=== PATIENT | female | born 1975 | race Caucasian/White ===

== ENCOUNTER 2023-11-11 19:15 | Inpatient (IN) | payer MEDICAID, SELFPAY ==
[2023-11-11] VITALS (7 sets, daily range): BP systolic 130–154; BP diastolic 53–86; PULSE 80–113; RESP 16–20; TEMP 36.9–38; O2SAT 94–98; BMI 23.3
--- NOTE | ~2023-11-11 | US_ITS ---
EXAMINATION: US VENOUS ULTRASOUND WITH DOPPLER LOWER EXTREMITY, RIGHT CLINICAL INFORMATION: Right leg pain and swelling COMPARISON: None available. TECHNIQUE: Ultrasound of the deep veins is performed from the hip to the calf with compression sonography and color and pulse Doppler assessment. Spectral analysis with color-flow imaging is performed. FINDINGS: There is normal venous compression and respiratory phase variation to the right common femoral and proximal femoral vein. Echogenic thrombus, lack of color Doppler, and lack of spectral waveform within the mid to distal right femoral vein, popliteal vein, peroneal vein and posterior tibial vein is consistent with deep venous thrombosis. There is no significant popliteal fossa cyst. Patient was not able to tolerate imaging of the left lower extremity. US/US venous duplex LE RT IMPRESSION: Acute DVT of the right mid femoral, distal femoral, popliteal, peroneal, and posterior tibial veins. This critical test result was discussed with Dr. Huitron at 9:22 PM on 11/11/[address] Jerel Paul at the time of discovery. It was ascertained that the content and the importance of the findings was understood at the time of the direct communication.
--- NOTE | ~2023-11-11 | CT_ITS ---
EXAMINATION: CT ANGIOGRAM OF THE CHEST WITH AND WITHOUT CONTRAST (CT PULMONARY ANGIOGRAM FOR PE) CLINICAL INFORMATION: Reason for Exam DVT, concern for pe COMPARISON: CT chest from 11/11/2023 TECHNIQUE: Prior to contrast administration, noncontrast localization images were obtained. Subsequently, multidetector volumetric imaging was performed from the thoracic inlet to below the diaphragms following the administration of 80 mL Omnipaque 350 intravenous contrast. No contrast reaction reported Sagittal, coronal, and MIP oblique sagittal reformatted images were obtained on the CT workstation, uploaded to PACS, and reviewed. This CT examination was performed using dose optimization techniques as appropriate, variously including the following: *Automated exposure control *Adjustment of mA and/or kV according to patient size (this includes techniques or standardized protocols for targeted exams where dose is matched to indication/reason for exam; i.e. extremities or head) *Use of iterative reconstruction technique Total exam dose-length product 108 mGy-cm FINDINGS: QUALITY OF STUDY/CONTRAST BOLUS: Satisfactory. PULMONARY ARTERIES: No pulmonary emboli. Main pulmonary artery is not enlarged. THORACIC AORTA: No aneurysm. LUNG/PLEURA: Emphysematous changes. Redemonstration of multiple pulmonary nodules for example nodule along the right minor fissure measuring 3 mm (series 8, image 243), stable. Stable nodular focus along the medial aspect of the right upper lobe (series 8, image 142) measuring 5 mm. No new enlarged or suspicious pulmonary nodules or masses are noted. Left basilar consolidative focus potentially representing atelectasis though underlying infectious/inflammatory etiology not excluded. Right basilar atelectasis. Central airways are patent. No pneumothorax. No large pleural effusion. MEDIASTINUM: Heart is not enlarged. No pericardial effusion. No coronary calcifications. No enlarged lymph nodes per size criteria. No evidence of septal bowing or right heart strain. CHEST WALL/AXILLA: No axillary or internal mammary lymphadenopathy. OSSEOUS STRUCTURES: No acute or suspicious osseous abnormality. UPPER ABDOMEN: Spleen is enlarged measuring 14.9 cm. Decreased hepatic attenuation suggesting hepatic steatosis. No reflux of contrast into the hepatic veins to suggest elevated right heart pressures. CT/CT angio chest PE protocol IMPRESSION: 1. No pulmonary emboli. 2. Redemonstration of multiple pulmonary nodules the largest measuring up to 5 mm. No new enlarged or suspicious pulmonary nodules or masses are noted. 3. Left basilar consolidative focus potentially representing atelectasis though underlying infectious/inflammatory etiology not excluded. 4. Spleen is enlarged measuring 14.9 cm. 5. Decreased hepatic attenuation suggesting hepatic steatosis.
--- NOTE | ~2023-11-11 | FL_ITS ---
Fluoroscopic right hip aspiration Indications: Right hip pain. Bacteremia. Procedure: Risks and benefits and possible complications were discussed with the patient and the consent form was signed. The patient was placed hip on the fluoroscopy table. The right hip was prepped and draped in normal sterile fashion. 1% buffered lidocaine was used for anesthesia. A 22-gauge spinal needle was used to access the hip joint. No fluid could be aspirated. Intra-articular position of the needle within the hip joint was verified using 3 cc of Omnipaque 300. The needle was then removed and a Band-Aid was applied to the injection site. There were no immediate complications. FL/FL guided asp or inj major jt Impression: Fluoroscopic right hip aspiration yielding no fluid. The procedure was performed by Solo Santiago PA-C, and directly supervised by Dr. Ruiz.
--- NOTE | ~2023-11-11 | CT_ITS ---
EXAMINATION: CT HEAD WITHOUT CONTRAST CLINICAL INFORMATION: Altered mental status. COMPARISON: None available. TECHNIQUE: Contiguous axial imaging was performed from the skull base to vertex without intravenous administration of contrast. This CT examination was performed using dose optimization techniques as appropriate, variously including the following: *Automated exposure control *Adjustment of mA and/or kV according to patient size (this includes techniques or standardized protocols for targeted exams where dose is matched to indication/reason for exam; i.e. extremities or head) *Use of iterative reconstruction technique DLP: 641 mGy-cm FINDINGS: The lateral, third and fourth ventricles are normally outlined. The cortical sulci and basal cisterns are normally outlined as well. There is no acute territorial defect, hemorrhage or midline shift. The extra-axial spaces are unremarkable. Calvarium/scalp: Intact. Maxillofacial sinuses and mastoids: There is bilateral maxillary sinus mucosal thickening/opacities. The remaining visualized maxillofacial sinuses are clear. There is minimal bilateral mastoid opacification. CT/CT head/brain wo IV con IMPRESSION: 1. No acute intracranial process seen. 2. Bilateral maxillary sinus mucosal thickening/opacities.
--- NOTE | ~2023-11-11 | XR_ITS ---
EXAMINATION: XR HIP, RIGHT CLINICAL INFORMATION: Right hip pain, osteoarthritis COMPARISON: None available. TECHNIQUE: Two views of the right hip. AP pelvis FINDINGS: Joint space narrowing, subchondral sclerosis and cystic changes and osteophyte formation is seen within the right hip joint consistent with severe osteoarthritis. No fracture. Mild degenerative changes noted in the left hip joint. Soft tissues are unremarkable. XR/XR hip RT w [id number] IMPRESSION: Severe osteoarthritis of the right hip joint.
--- NOTE | ~2023-11-11 | CT_ITS ---
EXAMINATION: CT HIP WITHOUT CONTRAST, RIGHT CLINICAL INFORMATION: Severe, debilitating pain. COMPARISON: None available. TECHNIQUE: Multidetector volumetric imaging was obtained through the right hip without contrast material. Multiplanar reformatted images were submitted in coronal and sagittal planes. This CT examination was performed using dose optimization techniques as appropriate, variously including the following: *Automated exposure control *Adjustment of mA and/or kV according to patient size (this includes techniques or standardized protocols for targeted exams where dose is matched to indication/reason for exam; i.e. extremities or head) *Use of iterative reconstruction technique DLP: 217 mGy-cm FINDINGS: Severe posterosuperior joint space narrowing with subchondral sclerosis and prominent subchondral cystic change. Prominent marginal osteophytes. No acute fracture or dislocation. No concerning lytic or blastic osseous lesion. No evidence of avascular necrosis. Small right hip joint effusion. No soft tissue mass or fluid collection. The visualized intrapelvic structures are grossly unremarkable. The visualized muscles and tendons are intact, however, evaluation significantly limited on CT examination. CT/CT hip RT wo IV con IMPRESSION: 1. Severe right hip osteoarthritis with a small joint effusion. 2. No acute fracture or dislocation. No evidence of avascular necrosis.
--- NOTE | ~2023-11-11 | CT_ITS ---
EXAMINATION: CT CHEST WITHOUT CONTRAST CLINICAL INFORMATION: Chest pain after a possible fall. Cough. COMPARISON: None available. TECHNIQUE: Multidetector volumetric CT imaging of the chest was done. Axial MIP volume rendering provided. Sagittal and coronal reformatted images were obtained. This CT examination was performed using dose optimization techniques as appropriate, variously including the following: *Automated exposure control *Adjustment of mA and/or kV according to patient size (this includes techniques or standardized protocols for targeted exams where dose is matched to indication/reason for exam; i.e. extremities or head) *Use of iterative reconstruction technique DLP: 230 mGy-cm. FINDINGS: NURSING STUDENT: Unremarkable. LUNGS: Soft tissue nodule within the medial aspect of the right upper lobe measuring 0.4 x 0.7 cm, for an average of 0.55 cm. Right minor fissure subpleural nodule measuring 0.2 cm. Minimal linear bibasilar atelectasis. Subpleural bleb within the left upper lobe measuring up to 2.5 cm. MEDIASTINUM: No cardiomegaly. No pericardial effusion. No thoracic aortic dilatation. No significant superior mediastinal or hilar lymphadenopathy. CORONARY ARTERY CALCIFICATION: None visualized on this study. PLEURA: There is no pleural effusion. No pleural mass or thickening. AXILLA: No lymphadenopathy. UPPER ABDOMEN: Partially visualized right adrenal nodule measuring 4.3 x 2.0 cm in greatest axial dimension with Hounsfield units measuring 14.4. Given the size greater than 4 cm and Hounsfield units greater than 10, findings could indicate possible malignancy. Surgical consultation is recommended. Consider biochemical lab evaluation for functional status and pheochromocytoma prior to resection. OSSEOUS STRUCTURES: No acute osseous abnormality. Prominent degenerative disc disease at T6-T7. CT/CT chest wo IV con IMPRESSION: 1. Soft tissue nodule within the medial aspect of the right upper lobe measuring 0.4 x 0.7 cm, for an average of 0.55 cm. Right minor fissure subpleural nodule measuring 0.2 cm. Minimal linear bibasilar atelectasis. Subpleural bleb within the left upper lobe measuring up to 2.5 cm. According to the UPDATED 2017 Fleischner Society recommendations, the advised follow-up imaging for nodules <6mm in the upper lobes is not necessarily required in low-risk patients. In high-risk patients with a nodule in the upper lobe and/or demonstrating suspicious morphology, an optional CT follow-up at 12 months may be obtained. If stable at 12 months, no further follow-up is recommended. 2. Partially visualized right adrenal nodule measuring 4.3 x 2.0 cm in greatest axial dimension, with Hounsfield units measuring 14.4. Given the size greater than 4 cm and Hounsfield units greater than 10, findings could indicate possible malignancy. Surgical consultation is recommended. Consider biochemical lab evaluation for functional status and pheochromocytoma prior to resection. 3. Prominent degenerative disc disease at T6-T7. Fleischner guidelines were followed.
--- NOTE | 2023-11-11 19:32 | PC.NURSE ---
pt biba from the train tracks in [place] reporting 10/10 excruciating left hip pain. pt reports sudden onset, pt pedal pulses positive bilaterally. pt able to wiggle toes at this time. pt noted to have sores on the right leg, reports hx of IV drug use. pt vss.
--- NOTE | 2023-11-11 19:39 | ED.GENADULT ---
HPI - General Adult General Chief complaint: Extremity Problem Stated complaint: r leg/hip/wrist pain x2hrs Time Seen by Provider: 11/11/23 19:29 History of Present Illness ED Provider: Elana ALLEN narrative: The patient is a 48-year-old woman who is homeless and who uses IV drugs. The patient says that she normally lives and stays in the [place] area. She was brought to the hospital by ambulance today after she was found apparently lying somewhere near train tracks where she was screaming for help. She says that she has been screaming for help for a few hours before found by police who summoned an ambulance. The patient is complaining of severe pain in her right hip and leg. She says that she has a long history of arthritis in the right hip but she has never had such pain as she has had now. She arrived crying in pain. She did not think that she had had a fever. She denies any definite trauma. When asked how she came to be in [place] from [place] she would only say ?that is a long story. ? The patient denies trauma or assault. Related Data Allergies Allergy/AdvReac Type Severity Reaction Status Date / Time clindamycin Allergy Unknown Verified 11/11/23 19:26 Penicillins Allergy Unknown Verified 11/11/23 19:26 Review of Systems Review of Systems: Yes all other systems are reviewed and are negative [facility] Social History Social History Smoked in Last 30 Days: Yes Substance Use Type: IV Drugs, Marijuana and Opiates Advance Directives: No Advance Directives Information Provided: No Do you have a plan to hurt others: No Plan Patient : No Physical Exam ED Vital Signs: Vital Signs - 24 hr 11/11/23 19:21 11/11/23 19:55 11/11/23 20:30 Temperature 98.4 F Pulse Rate 106 H Respiratory Rate 20 20 20 Blood Pressure 144/53 H Pulse Oximetry 97 Oxygen Delivery Method Room Air 11/11/23 21:13 11/11/23 22:10 11/11/23 22:26 Temperature 98.9 F 98.8 F 98.9 F Pulse Rate 110 H 113 H 110 H Respiratory Rate 20 17 16 Blood Pressure 154/80 H 154/79 H 148/74 H Pulse Oximetry 94 95 95 Oxygen Delivery Method Room Air Room Air Room Air 11/11/23 23:16 11/12/23 00:40 Temperature 100.4 F 101.5 F H Pulse Rate 124 H Respiratory Rate 17 Blood Pressure 168/79 H Pulse Oximetry 95 Oxygen Delivery Method Room Air BMI result Body Mass Index 23.3 Const Other: The patient is an extremely disheveled chronically ill-appearing 48-year-old. Her extremities are very dirty. She was yelling that she was in severe pain in the region of the right hip. HENMT Other: Face is symmetrical. The patient has a very poor dentition with severe decay of all of her teeth. Eyes Other: Pupils are round and equal, conjunctivae nonicteric Neck Other: No nuchal rigidity. No neck swelling Resp Effort & Inspection: normal respiratory effort Auscultation: clear to auscultation bilaterally Cardio Other: I do not hear a murmur Rate: tachycardic Rhythm: regular rhythm Heart sounds: S1 normal heart sound present and S2 normal heart sound present GI Other: Abdomen is soft and not apparently tender. Skin Other: The patient's skin is very dirty on most of her body. She has track hernandez. No definite signs of infection. Neuro Other: The patient was awake and was screaming in pain. She was not obviously disoriented but she seemed distracted by her pain. Eye movements were intact. Pupils were equal. Face is symmetrical. Her speech is hard to understand but I think this was a combination of her dry mucous membranes and her very poor dentition. She moves her arms symmetrically. She moves her left leg well. She has a lot of pain with any movement of the right leg. Extrem Other: Right calf was swollen and much larger than the left calf. The left calf is very soft. Good pulses in both feet Medications Administered Discontinued Medications Generic Name Dose Route Start Last Admin Trade Name Freq PRN Reason Stop Dose Admin Acetaminophen 975 mg 11/12/23 00:59 11/12/23 01:15 Acetaminophen 325 Mg Tablet PO 11/12/23 01:00 975 mg ONCE ONE Administration Droperidol 1.25 mg 11/11/23 19:46 11/11/23 19:55 Droperidol 5 Mg/2 Ml Vial IM 11/11/23 19:47 1.25 mg ONCE ONE Administration Droperidol 1.25 mg 11/11/23 20:15 11/11/23 20:30 Droperidol 5 Mg/2 Ml Vial IM 11/11/23 20:16 1.25 mg ONCE ONE Administration Enoxaparin Sodium 60 mg 11/12/23 00:22 11/12/23 00:53 Enoxaparin Sodium 60 Mg/0.6 Ml Syringe 1 mg/kg (60 mg) 11/12/23 00:23 60 mg SUBCUT Administration ONCE ONE Hydromorphone HCl 2 mg 11/11/23 19:46 11/11/23 19:55 Hydromorphone Hcl 2 Mg/Ml Vial IM 11/11/23 19:47 2 mg ONCE ONE Administration Protocol Hydromorphone HCl 2 mg 11/11/23 20:15 11/11/23 20:30 Hydromorphone Hcl 2 Mg/Ml Vial IM 11/11/23 20:16 2 mg ONCE ONE Administration Protocol Hydromorphone HCl 1 mg 11/11/23 20:56 11/11/23 21:14 Hydromorphone Hcl 1 Mg/Ml Syringe IVPUSH 11/11/23 20:57 1 mg ONCE ONE Administration Protocol Hydromorphone HCl 1 mg 11/11/23 21:23 11/11/23 22:11 Hydromorphone Hcl 1 Mg/Ml Syringe IVPUSH 11/11/23 21:24 1 mg ONCE ONE Administration Protocol Hydromorphone HCl 1 mg 11/12/23 01:46 11/12/23 02:46 Hydromorphone Hcl 1 Mg/Ml Syringe IVPUSH 11/12/23 01:47 1 mg ONCE ONE Administration Protocol Sodium Chloride 1,000 mls @ 999 mls/hr 11/11/23 21:00 11/12/23 00:06 Ns IV 11/11/23 22:00 Infused .Q1H1M SHAHEED Infusion Sodium Chloride 1,000 mls @ 999 mls/hr 11/11/23 23:30 11/12/23 01:04 Ns IV 11/12/23 00:30 Infused .Q1H1M SHAHEED Infusion Cefepime HCl 2 gm/ Sodium 50 mls @ 100 mls/hr 11/12/23 00:23 11/12/23 01:14 Chloride IV 11/12/23 00:52 Infused ONCE ONE Infusion Vancomycin HCl 1,500 mg/ 500 mls @ 333.333 mls/hr 11/12/23 00:24 11/12/23 01:16 Sodium Chloride IV 11/12/23 01:53 333.33 mls/hr ONCE ONE Administration Sodium Chloride 1,000 mls @ 999 mls/hr 11/12/23 01:00 11/12/23 02:21 Ns IV 11/12/23 02:00 Infused .Q1H1M SHAHEED Infusion Lorazepam 1 mg 11/11/23 21:23 11/11/23 21:31 Lorazepam 2 Mg/Ml Vial IVPUSH 11/11/23 21:24 1 mg ONCE ONE Administration Medical Decision Making Medical Decision Making [facility] Narrative: The patient is a 48-year-old male who is homeless and is an IV drug user. She normally lives in [place]. The patient would not tell me what brought her to [place]. The patient states that she developed severe right leg pain just a few hours before coming to the hospital. She says she has chronic right hip pain because of arthritis in the right hip. She says she has never had pain like this before. On exam she had obvious right calf swelling. She has a lot of pain with manipulation of the right hip but it does not seem to be a frozen joint. The patient was initially mildly tachycardic and somewhat hypertensive. Her initial temperature was normal. Ultimately we took a rectal temperature that was 100.4. Her white count was elevated as was her CRP. We obtained blood cultures and a lactate. Her lactate was normal. The patient was started empirically on cefepime and vancomycin. Later the patient became more tachycardic with a heart rate up to the 120s and a repeat temperature was 101.5 degrees. An ultrasound of the right leg showed a DVT from the mid thigh down. She was started on enoxaparin. A noncontrast CT of the right hip shows severe right hip osteoarthritis with a small joint effusion. A noncontrast CT of the chest did not show any obvious source of infection. I consulted the hospitalist for admission. The hospitalist asked me to contact a vascular surgeon as to whether the patient's DVT transfer to a hospital that could do a thrombectomy. I spoke to the on-call vascular surgeon at [facility] who felt that anticoagulation would be the appropriate 1st step in this case. The patient was started on enoxaparin. Ultimately the source of the patient's fever is not entirely clear. She has no abdominal symptoms and no abdominal tenderness. No pneumonia on chest x-ray. She is not complaining of a headache and although she has an unusual demeanor I do not think she was frankly confused ((later after multiple doses of pain medications and lorazepam she seemed more confused but I believe this was attributable to the medications). I think it is probably unlikely that she has a septic arthritis of the hip given the small effusion and the fact that she could move the hip somewhat. The patient is a very complicated patient and I think at this point empiric treatment with antibiotics and awaiting cultures and further observation is appropriate. Lab Data 11/12/23 00:43 11/11/23 21:08 Labs: Lab Results 11/11/23 11/11/23 11/11/23 Range/Units 19:56 21:08 23:45 WBC 16.7 H (4.8-10.8) X10*3/uL RBC 4.86 (4.20-5.50) X10*6/uL Hgb 11.1 L (12.0-16.0) g/dl Hct 34.9 L (37.0-47.0) % MCV 71.8 L (80.0-98.0) fL MCH 22.8 L (27.0-33.0) pg MCHC 31.8 (31.0-35.0) g/dl RDW 15.9 (11.0-16.0) % Plt Count 477 H (160-400) X10*3/uL MPV 10.2 (9.4-12.3) fL Immature Gran % (Auto) 0.7 H (0.0-0.4) % Neut % (Auto) 90.9 H (45-73) % Lymph % (Auto) 3.2 L (20-40) % [place] % (Auto) 4.7 (2-11) % Eos % (Auto) 0.1 (0-4) % Baso % (Auto) 0.4 (0-2) % Lymph # (Auto) 0.5 L (1.2-4.9) X10*3/uL [place] # (Auto) 0.8 (0.1-1.2) X10*3/uL Eos # (Auto) 0.0 (0.0-0.4) X10*3/uL Baso # (Auto) 0.1 (0.0-0.2) X10*3/uL Abs Immat Gran (auto) 0.12 H (0.00-0.03) X10*3/uL Absolute Neuts (auto) 15.2 H (2.0-8.3) x10*3/uL Absolute Nucleated RBC 0.000 (0.0-0.012) X10*3/uL Nucleated RBC % (auto) 0.0 (0.0-0.2) /100WBC Smear Tech's Comments VERIFIED PT 13.9 H (11.1-13.3) SEC INR 1.1 (0.9-1.1) APTT (26.0-36.8) SEC Sodium 136 (135-145) mmol/L Potassium 4.6 (3.3-5.1) mmol/L Chloride 97 (96-108) mmol/L Carbon Dioxide 23 (22-29) mmol/L Anion Gap 21 H (12-20) BUN 19 H (9-16) mg/dL Creatinine 0.82 (0.5-1.4) mg/dL Estim Creat Clear Calc 74.6 Estimated GFR > 60 Random Glucose 101 (60-115) mg/dL Lactic Acid 1.1 (0.5-2.0) mmol/L Calcium 9.3 (8.4-10.2) mg/dL Magnesium 2.2 (1.6-2.6) mg/dL Total Bilirubin 0.9 (0.0-1.0) mg/dL Direct Bilirubin 0.2 (0.0-0.5) mg/dL AST 40 H (5-31) U/L ALT 24 (0-31) U/L Alkaline Phosphatase 100 (39-117) U/L Total Creatine Kinase 156 H (26-140) U/L C-Reactive Protein 23.18 H (< or = 0.50) mg/dL Total Protein 10.2 H (6.5-8.0) g/dL Albumin 3.2 L (3.5-5.0) g/dL Procalcitonin Cancelled 15.79 Urine Color Dark Yellow Urine Appearance Cloudy Urine pH 5.5 (5.0-9.0) Ur Specific [place] >= 1.030 H (1.005-1.025) Urine Protein 100 (2+) H (Neg-Trace) mg/dL Urine Glucose (UA) Negative (Negative) mg/dL Urine Ketones Trace (Negative) mg/dL Urine Blood Negative (Negative) Urine Nitrite Negative (Negative) Ur Leukocyte Esterase Small (1+) H (Negative) Urine RBC 0-2 (0-2) /HPF Urine WBC 6-10 H (0-5) /HPF Ur Squamous Epith Cells >20 (0-2) /HPF Other Crystals Present Urine Bacteria 2+ (None Seen) Hyaline Casts >20 (0-2) /LPF Urine Opiates Screen POSITIVE H (Not Detect) Ur Buprenorphine Scrn Not Detected (Not Detect) ng/mL Ur Oxycodone Screen Not Detected (Not Detect) ng/mL Urine Methadone Screen Not Detected (Not Detect) ng/mL Urine Fentanyl Screen POSITIVE H (Not Detect) Ur Barbiturates Screen Not Detected (Not Detect) Ur Phencyclidine Scrn Not Detected (Not Detect) Ur Amphetamines Screen Not Detected (Not Detect) U Benzodiazepines Scrn Not Detected (Not Detect) Urine Cocaine Screen POSITIVE H (Not Detect) U Marijuana (THC) Screen Not Detected (Not Detect) Ethyl Alcohol < 10 mg/dL 11/12/23 Range/Units 00:43 WBC 21.0 H (4.8-10.8) X10*3/uL RBC 3.96 L (4.20-5.50) X10*6/uL Hgb 9.0 L (12.0-16.0) g/dl Hct 28.2 L (37.0-47.0) % MCV 71.2 L (80.0-98.0) fL MCH 22.7 L (27.0-33.0) pg MCHC 31.9 (31.0-35.0) g/dl RDW 15.8 (11.0-16.0) % Plt Count 434 H (160-400) X10*3/uL MPV 10.1 (9.4-12.3) fL Immature Gran % (Auto) (0.0-0.4) % Neut % (Auto) (45-73) % Lymph % (Auto) (20-40) % [place] % (Auto) (2-11) % Eos % (Auto) (0-4) % Baso % (Auto) (0-2) % Lymph # (Auto) (1.2-4.9) X10*3/uL [place] # (Auto) (0.1-1.2) X10*3/uL Eos # (Auto) (0.0-0.4) X10*3/uL Baso # (Auto) (0.0-0.2) X10*3/uL Abs Immat Gran (auto) (0.00-0.03) X10*3/uL Absolute Neuts (auto) (2.0-8.3) x10*3/uL Absolute Nucleated RBC 0.000 (0.0-0.012) X10*3/uL Nucleated RBC % (auto) 0.0 (0.0-0.2) /100WBC Smear Tech's Comments PT 14.9 H (11.1-13.3) SEC INR 1.2 H (0.9-1.1) APTT 25.9 L (26.0-36.8) SEC Sodium (135-145) mmol/L Potassium (3.3-5.1) mmol/L Chloride (96-108) mmol/L Carbon Dioxide (22-29) mmol/L Anion Gap (12-20) BUN (9-16) mg/dL Creatinine (0.5-1.4) mg/dL Estim Creat Clear Calc Estimated GFR Random Glucose (60-115) mg/dL Lactic Acid (0.5-2.0) mmol/L Calcium (8.4-10.2) mg/dL Magnesium (1.6-2.6) mg/dL Total Bilirubin (0.0-1.0) mg/dL Direct Bilirubin (0.0-0.5) mg/dL AST (5-31) U/L ALT (0-31) U/L Alkaline Phosphatase (39-117) U/L Total Creatine Kinase (26-140) U/L C-Reactive Protein (< or = 0.50) mg/dL Total Protein (6.5-8.0) g/dL Albumin (3.5-5.0) g/dL Procalcitonin Urine Color Urine Appearance Urine pH (5.0-9.0) Ur Specific [place] (1.005-1.025) Urine Protein (Neg-Trace) mg/dL Urine Glucose (UA) (Negative) mg/dL Urine Ketones (Negative) mg/dL Urine Blood (Negative) Urine Nitrite (Negative) Ur Leukocyte Esterase (Negative) Urine RBC (0-2) /HPF Urine WBC (0-5) /HPF Ur Squamous Epith Cells (0-2) /HPF Other Crystals Urine Bacteria (None Seen) Hyaline Casts (0-2) /LPF Urine Opiates Screen (Not Detect) Ur Buprenorphine Scrn (Not Detect) ng/mL Ur Oxycodone Screen (Not Detect) ng/mL Urine Methadone Screen (Not Detect) ng/mL Urine Fentanyl Screen (Not Detect) Ur Barbiturates Screen (Not Detect) Ur Phencyclidine Scrn (Not Detect) Ur Amphetamines Screen (Not Detect) U Benzodiazepines Scrn (Not Detect) Urine Cocaine Screen (Not Detect) U Marijuana (THC) Screen (Not Detect) Ethyl Alcohol mg/dL Critical Care Time Critical Care Time Critical Care Time: Yes Total Critical Care Time: 35 Attestation: The patient was critically ill with a high probability of imminent or life-threatening deterioration. ?I spent greater than 30 minutes of discontinuous time evaluating the patient, delivering critical care at the bedside, discussing evaluating data with consultants. ?Critical care time does not include time spent performing separately billable procedures or teaching. ?Time spent performing critical care with 35 minutes. Discharge Plan Discharge Clinical Impression: Acute deep vein thrombosis (DVT) of right lower extremity, Fever, IVDU (intravenous drug user) Patient Disposition: Admitted As Inpatient
[2023-11-11] MEDS: droPERidol 5 MG/2 ML VIAL 1.25 MG IM ×2 (19:55→20:30)
[2023-11-11] MEDS: HYDROmorphone HCl 2 MG/ML VIAL IM ×2 (19:55→20:30)
--- NOTE | 2023-11-11 19:57 | PC.NURSE ---
pt medicated per mar, tolerated well.
[2023-11-11 20:02] LABS: Appearance Urine Cloudy; Color Urine Dark Yellow; Glucose Urine UA Negative (Negative); Leukocyte Esterase Urine Small (1+) (Negative); Nitrite Urine Negative (Negative); PH 5.5 (5.0-9.0); Specific Gravity - Urine >= 1.030 (1.005-1.025); UMIC TRIGGER UACC YES; Urine Blood Negative (Negative); Urine Ketones Trace mg/dL (Negative); Urine Protein 100 (2+) mg/dL (Neg-Trace)
--- NOTE | 2023-11-11 20:12 | MHC.EDTECH ---
Pt refusing to have labs drawn. Zenaida WOLFE aware.
[2023-11-11 20:16] LABS: Amphetamine Screen Urine Not Detected (Not Detect); Barbiturates, Urine Not Detected (Not Detect); Benzodiazepines Screen Urine Not Detected (Not Detect); Buprenorphine Scr Not Detected (Not Detect); Cannabinoid Screen Urine Not Detected (Not Detect); Cocaine Screen Urine POSITIVE (Not Detect); Fentanyl, urine POSITIVE (Not Detect); Methadone Screen, Urine Not Detected (Not Detect); Opiate Screen Urine POSITIVE (Not Detect); Oxycodone Screen Urine Not Detected (Not Detect); Phencyclidine Screen Urine Not Detected (Not Detect)
[2023-11-11 20:22] LABS: Bacteria Urine 2+ (None Seen); Hyaline Casts Urine >20 /LPF (0-2); Other Crystals Urine Present; RBC Urine 0-2 /HPF (0-2); Squamous Epithelial Cell Urine >20 /HPF (0-2); UACC Culture Trigger YES
--- NOTE | 2023-11-11 20:33 | PC.NURSE ---
pt reporting 10/10 pain, pt medicated per mar at this time.
[2023-11-11] MEDS: 0.9 % Sodium Chloride 1,000 ML 999 ML IV (21:13)
[2023-11-11] MEDS: HYDROmorphone HCl 1 MG/ML SYRINGE IVPUSH ×2 (21:14→22:11)
[2023-11-11 21:16] LABS: Basophils Absolute Auto 0.1 X10*3/uL (0.0-0.2); Basophils Percent Auto 0.4 % (0-2); Eosinophils Percent Auto 0.1 % (0-4); Hematocrit 34.9 % (37.0-47.0); Hemoglobin 11.1 g/dl (12.0-16.0); Imm Gran Abs Auto 0.12 X10*3/uL (0.00-0.03); Imm Gran Pct Auto 0.7 % (0.0-0.4); Lymphocytes Absolute Auto 0.5 X10*3/uL (1.2-4.9); Lymphocytes Percent Auto 3.2 % (20-40); MANUAL DIFF FLAG SCAN; Mean Corpuscular HGB Conc 31.8 g/dl (31.0-35.0); Mean Corpuscular Hemoglobin 22.8 pg (27.0-33.0); Mean Corpuscular Volume 71.8 fL (80.0-98.0); Mean Platelet Volume 10.2 fL (9.4-12.3); Monocytes Absolute Auto 0.8 X10*3/uL (0.1-1.2); Monocytes Percent Auto 4.7 % (2-11); Neutrophils Absolute Auto 15.2 x10*3/uL (2.0-8.3); Neutrophils Percent Auto 90.9 % (45-73); Platelet Count 477 X10*3/uL (160-400); Red Blood Count 4.86 X10*6/uL (4.20-5.50); Red Cell Distribution Width 15.9 % (11.0-16.0); SCAN SMEAR FLAG 1; White Blood Count 16.7 X10*3/uL (4.8-10.8)
--- NOTE | 2023-11-11 21:16 | PC.NURSE ---
iv access obtained at this time, 20G placed in right ac, labs obtained and sent.
[2023-11-11 21:23] LABS: INTERNATIONAL NORM RATIO 1.1 (0.9-1.1); Prothrombin Time 13.9 SEC (11.1-13.3)
[2023-11-11] MEDS: LORazepam 2 MG/ML VIAL 1 MG IVPUSH (21:31)
[2023-11-11 21:36] LABS: SLIDE REVIEW VERIFIED
[2023-11-11 21:56] LABS: Chloride 97 mmol/L (96-108)
[2023-11-11 21:57] LABS: Alanine Aminotransferase 24 U/L (0-31); Albumin Level 3.2 g/dL (3.5-5.0); Alkaline Phosphatase 100 U/L (39-117); Anion Gap 21 (12-20); Aspartate Amino Transferase 40 U/L (5-31); Bilirubin Direct 0.2 mg/dL (0.0-0.5); Bilirubin Total 0.9 mg/dL (0.0-1.0); Blood Urea Nitrogen 19 mg/dL (9-16); C Reactive Protein 23.18 mg/dL (< or = 0.50); Calcium 9.3 mg/dL (8.4-10.2); Carbon Dioxide 23 mmol/L (22-29); Creatinine Clr Calc Pharmacy 74.6; Estimated Glomerular Filt Rate > 60; Ethanol < 10 mg/dL; Glucose Random 101 mg/dL (60-115); Magnesium 2.2 mg/dL (1.6-2.6); Potassium 4.6 mmol/L (3.3-5.1); Sodium 136 mmol/L (135-145); Total Protein 10.2 g/dL (6.5-8.0)
--- NOTE | 2023-11-11 22:15 | PC.NURSE ---
pt refusing x rays at this time. pt medicated per jun, aware.
[2023-11-12] VITALS (15 sets, daily range): BP systolic 152–189; BP diastolic 63–90; PULSE 89–124; RESP 17–24; TEMP 36.4–38.6; O2SAT 93–95; BMI 26.3
--- NOTE | 2023-11-12 00:01 | PC.NURSE ---
at bedside placing IJ at this time, pt tolerated well.labs obtained and sent.
[2023-11-12] MEDS: 0.9 % Sodium Chloride 1,000 ML 999 ML IV ×2 (00:03→01:20)
[2023-11-12 00:06] LABS: Lactic Acid 1.1 mmol/L (0.5-2.0)
--- NOTE | 2023-11-12 00:12 | MHC.EDTECH ---
Nilson placed on Pt.
--- NOTE | 2023-11-12 00:25 | ECG_ITS ---
Test Reason : WEAKNESS Blood Pressure : / mmHG Vent. Rate : 124 BPM Atrial Rate : 124 BPM P-R Int : 146 ms QRS Dur : 066 ms QT Int : 308 ms P-R-T Axes : 052 069 035 degrees QTc Int : 442 ms Sinus tachycardia Possible Left atrial enlargement Anterior infarct , age undetermined Abnormal ECG No previous ECGs available Referred By: Constantin Huitron Electronically Signed By:SHUKRI CHAPPELL MD
[2023-11-12 00:31] LABS: Procalcitonin 15.79 ng/mL
[2023-11-12] MEDS: cefEPime HCl 2 GM in 0.9 % Sodium Chloride 50 ML IV (00:44)
[2023-11-12 00:47] LABS: Hematocrit 28.2 % (37.0-47.0); Mean Corpuscular HGB Conc 31.9 g/dl (31.0-35.0); Mean Corpuscular Hemoglobin 22.7 pg (27.0-33.0); Mean Corpuscular Volume 71.2 fL (80.0-98.0); Mean Platelet Volume 10.1 fL (9.4-12.3); Platelet Count 434 X10*3/uL (160-400); Red Blood Count 3.96 X10*6/uL (4.20-5.50); Red Cell Distribution Width 15.8 % (11.0-16.0)
[2023-11-12] MEDS: Enoxaparin Sodium 60 MG/0.6 ML SYRINGE SUBCUT (00:53)
[2023-11-12 00:55] LABS: INTERNATIONAL NORM RATIO 1.2 (0.9-1.1); Prothrombin Time 14.9 SEC (11.1-13.3)
--- NOTE | 2023-11-12 00:56 | PC.NURSE ---
COWS=9, dr.krogius gar.
[2023-11-12 00:58] LABS: Partial Thromboplastin Time 25.9 SEC (26.0-36.8)
--- NOTE | 2023-11-12 00:58 | P.HPHOSP_ITS ---
History of Present Illness Date of Service: 11/12/23 Chief Complaint: leg pain This is a 48-year-old female with pertinent history of tobacco use disorder, IV polysubstance use disorder who was brought to the emergency department after [place] near the train track and screaming for help, complaining of leg pain. As per EMS, she was found by the police who called EMS. Patient states she is homeless in admits to using IV drugs. She used on the day of presentation. Patient states he was screaming due to her leg pain that has been ongoing for a while. Patient states she has never had such pain before. Denies fever or chills. No chest discomfort, palpitations, cough, shortness of breath, abdominal pain, changes in urinary or bowel habits. Patient denies taking any prescription medications. In the emergency department, imaging with acute DVT of the right lower extremity. [facility] vascular surgery was consulted who recommended admission with anticoagulation, no surgical intervention warranted at this time. Patient also with fever 101.5 and WBC 21 with elevated procalcitonin in the ER. She was given therapeutic Lovenox and empiric IV antibiotics. Review of Systems 2 Constitutional: Constitutional: Reports malaise, Reports poor appetite and Reports weakness Cardiovascular: Cardiovascular: Reports no additional cardiovascular complaints Respiratory: Respiratory: Reports no additional respiratory complaints Gastrointestinal: Gastrointestinal: Reports no additional gastrointestinal complaints Genitourinary: Genitourinary: Reports no additional female genitourinary complaints Neurologic: Reports weakness PMFSH Social History Smoked in Last 30 Days: Yes Substance Use Type: IV Drugs, Marijuana and Opiates Advance Directives: No Advance Directives Information Provided: No Do you have a plan to hurt others: No Plan Patient : No Meds Allergies Allergy/AdvReac Type Severity Reaction Status Date / Time clindamycin Allergy Unknown Verified 11/11/23 19:26 Penicillins Allergy Unknown Verified 11/11/23 19:26 Active Medications: Current Medications Acetaminophen (Acetaminophen 325 Mg Tablet) 650 mg PO Q6H PRN PRN Reason: Pain, Mild (Pain Scale 1-3), fever or headache Calcium Carbonate (Calcium Carbonate 750 Mg Tab.Chew) 750 mg PO Q4H PRN PRN Reason: Heartburn Enoxaparin Sodium (Enoxaparin Sodium 40 Mg/0.4 Ml Syringe) 60 mg SUBCUT Q12H SHAHEED Vancomycin HCl 1,500 mg/ (Sodium Chloride) 500 mls @ 333.333 mls/hr IV ONCE ONE Stop: 11/12/23 01:53 Magnesium Hydroxide (Milk Of Magnesia 30 Ml Oral.Susp) 30 ml PO DAILY PRN PRN Reason: Constipation Melatonin (Melatonin 3 Mg Tablet) 6 mg PO BEDTIME PRN PRN Reason: Insomnia Morphine Sulfate (Morphine Sulfate 4 Mg/Ml Cartridge) 4 mg IVPUSH Q4H PRN; Protocol PRN Reason: Pain, Severe (Pain Scale 7-10) Ondansetron HCl (Ondansetron Hcl 4 Mg/2 Ml Vial) 4 mg IVPUSH Q8H PRN PRN Reason: Nausea and Vomiting Pharmacy Consult (Consult Rx Vancomycin Dosing) 1 each MISCELLANE DAILY PRN PRN Reason: Consult order Sodium Chloride (0.9 % Sodium Chloride Flush 3 Ml Syringe) 3 ml IVFLUSH QSHIFT [facility] Physical Exam 2 Vital Signs and Narrative: Vital Signs: Last Vital Signs Temp 101.5 F H 11/12/23 00:40 Pulse 124 H 11/12/23 00:40 Resp 17 11/12/23 00:40 BP 168/79 H 11/12/23 00:40 Pulse Ox 95 11/12/23 00:40 O2 Del Method Room Air 11/12/23 00:40 BMI result Body Mass Index 23.3 Middle-aged disheveled female lying in bed in no distress Neck supple, no JVD, poor dentition Regular rate and rhythm, S1-S2 heard Regular breath sounds bilaterally, no wheezing or crackles appreciated Abdomen soft nontender, no guarding, no rigidity Patient is awake, alert and oriented to self, place, time and person ; no focal motor deficit Psych: Anxious Multiple track hernandez seen ; Right calf with swelling, erythema and tenderness Results Labs 11/12/23 00:43 11/11/23 21:08 Labs: Laboratory Results - last 24 hr 11/11/23 11/11/23 11/11/23 19:56 21:08 23:45 MCV 71.8 L MCH 22.8 L MCHC 31.8 RDW 15.9 Plt Count 477 H MPV 10.2 Immature Gran % (Auto) 0.7 H Neut % (Auto) 90.9 H Lymph % (Auto) 3.2 L [place] % (Auto) 4.7 Eos % (Auto) 0.1 Baso % (Auto) 0.4 Lymph # (Auto) 0.5 L [place] # (Auto) 0.8 Eos # (Auto) 0.0 Baso # (Auto) 0.1 Abs Immat Gran (auto) 0.12 H Absolute Neuts (auto) 15.2 H Absolute Nucleated RBC 0.000 Nucleated RBC % (auto) 0.0 Smear Tech's Comments VERIFIED PT 13.9 H INR 1.1 Anion Gap 21 H Estim Creat Clear Calc 74.6 Estimated GFR > 60 Random Glucose 101 Lactic Acid 1.1 Calcium 9.3 Magnesium 2.2 Total Bilirubin 0.9 Direct Bilirubin 0.2 AST 40 H ALT 24 Alkaline Phosphatase 100 Total Creatine Kinase 156 H C-Reactive Protein 23.18 H Total Protein 10.2 H Albumin 3.2 L Procalcitonin Cancelled 15.79 Urine Color Dark Yellow Urine Appearance Cloudy Urine pH 5.5 Ur Specific [place] >= 1.030 H Urine Protein 100 (2+) H Urine Glucose (UA) Negative Urine Ketones Trace Urine Blood Negative Urine Nitrite Negative Ur Leukocyte Esterase Small (1+) H Urine RBC 0-2 Urine WBC 6-10 H Ur Squamous Epith Cells >20 Other Crystals Present Urine Bacteria 2+ Hyaline Casts >20 Urine Opiates Screen POSITIVE H Ur Buprenorphine Scrn Not Detected Ur Oxycodone Screen Not Detected Urine Methadone Screen Not Detected Urine Fentanyl Screen POSITIVE H Ur Barbiturates Screen Not Detected Ur Phencyclidine Scrn Not Detected Ur Amphetamines Screen Not Detected U Benzodiazepines Scrn Not Detected Urine Cocaine Screen POSITIVE H U Marijuana (THC) Screen Not Detected Ethyl Alcohol < 10 11/12/23 00:43 MCV 71.2 L MCH 22.7 L MCHC 31.9 RDW 15.8 Plt Count 434 H MPV 10.1 Immature Gran % (Auto) Neut % (Auto) Lymph % (Auto) [place] % (Auto) Eos % (Auto) Baso % (Auto) Lymph # (Auto) [place] # (Auto) Eos # (Auto) Baso # (Auto) Abs Immat Gran (auto) Absolute Neuts (auto) Absolute Nucleated RBC 0.000 Nucleated RBC % (auto) 0.0 Smear Tech's Comments PT INR Anion Gap Estim Creat Clear Calc Estimated GFR Random Glucose Lactic Acid Calcium Magnesium Total Bilirubin Direct Bilirubin AST ALT Alkaline Phosphatase Total Creatine Kinase C-Reactive Protein Total Protein Albumin Procalcitonin Urine Color Urine Appearance Urine pH Ur Specific [place] Urine Protein Urine Glucose (UA) Urine Ketones Urine Blood Urine Nitrite Ur Leukocyte Esterase Urine RBC Urine WBC Ur Squamous Epith Cells Other Crystals Urine Bacteria Hyaline Casts Urine Opiates Screen Ur Buprenorphine Scrn Ur Oxycodone Screen Urine Methadone Screen Urine Fentanyl Screen Ur Barbiturates Screen Ur Phencyclidine Scrn Ur Amphetamines Screen U Benzodiazepines Scrn Urine Cocaine Screen U Marijuana (THC) Screen Ethyl Alcohol Imaging Radiologist's Impressions: Impressions Venous Duplex 11/11/23 20:51 IMPRESSION: Acute DVT of the right mid femoral, distal femoral, popliteal, peroneal, and posterior tibial veins. This critical test result was discussed with Dr. Huitron at 9:22 PM on 11/11/[address] Jerel Paul at the time of discovery. It was ascertained that the content and the importance of the findings was understood at the time of the direct communication. Hip CT 11/11/23 22:46 IMPRESSION: 1. Severe right hip osteoarthritis with a small joint effusion. 2. No acute fracture or dislocation. No evidence of avascular necrosis. Chest CT 11/11/23 22:54 IMPRESSION: 1. Soft tissue nodule within the medial aspect of the right upper lobe measuring 0.4 x 0.7 cm, for an average of 0.55 cm. Right minor fissure subpleural nodule measuring 0.2 cm. Minimal linear bibasilar atelectasis. Subpleural bleb within the left upper lobe measuring up to 2.5 cm. According to the UPDATED 2017 Fleischner Society recommendations, the advised follow-up imaging for nodules <6mm in the upper lobes is not necessarily required in low-risk patients. In high-risk patients with a nodule in the upper lobe and/or demonstrating suspicious morphology, an optional CT follow-up at 12 months may be obtained. If stable at 12 months, no further follow-up is recommended. 2. Partially visualized right adrenal nodule measuring 4.3 x 2.0 cm in greatest axial dimension, with Hounsfield units measuring 14.4. Given the size greater than 4 cm and Hounsfield units greater than 10, findings could indicate possible malignancy. Surgical consultation is recommended. Consider biochemical lab evaluation for functional status and pheochromocytoma prior to resection. 3. Prominent degenerative disc disease at T6-T7. Fleischner guidelines were followed. Assessment and Plan (1) IVDU (intravenous drug user): Status: Acute (2) Fever: Status: Acute (3) Acute deep vein thrombosis (DVT) of right lower extremity: Status: Acute Plan This is a 48-year-old female with pertinent history of tobacco use disorder, IV polysubstance use disorder who was brought to the emergency department after she was found lying near the train track and screaming for help, complaining of leg pain. #. Acute DVT of right lower extremity: Initiated therapeutic Lovenox. Dr. Ivan Rucker, [facility] vascular surgery consulted>> no surgical intervention warranted. #. SIRS+: Initiated empiric IV antibiotics. Concern for bacterial infection with elevated procalcitonin. CT chest without consolidation and UA not significant for UTI. Follow blood cultures in this patient with risk for bacteremia due to IV drug use #. Right adrenal nodule: >4cm and >10 HU. Obtaining DHEA-S, plasma metanephrine, PAC, renin aldosterone to rule out hormonal hypersecretion #. Microcytic anemia: Obtaining iron profile #. Polysubstance IV drug use disorder: UDS positive for cocaine, fentanyl and opiates. Consulting Addiction Team. Monitor for withdrawal #. Homelessness: Consulting case management #. Tobacco use disorder: Nicotine patch while in the hospital. Counseled regarding cessation DVT prophylaxis: Lovenox Full code Admit as inpatient and will require two night minimum hospital stay for IV antibiotics, anticoagulation (as above), which is not possible in a lesser acute setting. Quality Stroke Does the patient have a stroke diagnosis?: No VTE Prior VTE?: No VTE Risk Level:: Medical - moderate - high VTE Device Contraindication: Treatment Not Indicated VTE Drug Contraindication: N/A - Med Ordered
[2023-11-12] MEDS: Acetaminophen 325 MG TABLET 975 MG PO (01:15)
[2023-11-12] MEDS: vancomycin HCL 1,500 MG in 0.9 % Sodium Chloride 500 ML 333.33 MG IV (01:16)
--- NOTE | 2023-11-12 01:20 | PC.NURSE ---
pt medicated for fever at this time, tolerated well with water.
[2023-11-12] MEDS: HYDROmorphone HCl 1 MG/ML SYRINGE IVPUSH (02:46)
[2023-11-12] MEDS: Nicotine 21 MG PATCH.TD24 TRANSDERMA (02:51)
[2023-11-12] MEDS: LORazepam 2 MG/ML VIAL 1 MG IVPUSH (02:52)
[2023-11-12] MEDS: Acetaminophen 1,000 MG/100 ML PIGGYBACK 400 MG IV (02:55)
--- NOTE | 2023-11-12 03:02 | PC.NURSE ---
pt agitated, removing leads, attempting to remove IV. dr. mccallum aware, pt medicated per jun. pt noted to have rectal temp, aware, pt medicated per jun.
[2023-11-12] MEDS: cefTRIAXone sodium 1 GM in 0.9 % Sodium Chloride 50 ML IV (04:03)
--- NOTE | 2023-11-12 04:22 | PC.NURSE ---
aware of pt temperature, cooling blanket placed per provider order.
[2023-11-12 05:00] LABS: MANUAL DIFF FLAG NO
[2023-11-12 05:02] LABS: Basophils Absolute Auto 0.1 X10*3/uL (0.0-0.2); Basophils Percent Auto 0.3 % (0-2); Hematocrit 28.9 % (37.0-47.0); Hemoglobin 9.2 g/dl (12.0-16.0); Imm Gran Pct Auto 1.5 % (0.0-0.4); Lymphocytes Absolute Auto 0.7 X10*3/uL (1.2-4.9); Lymphocytes Percent Auto 3.3 % (20-40); Mean Corpuscular HGB Conc 31.8 g/dl (31.0-35.0); Mean Corpuscular Hemoglobin 22.6 pg (27.0-33.0); Mean Platelet Volume 9.9 fL (9.4-12.3); Monocytes Absolute Auto 1.2 X10*3/uL (0.1-1.2); Neutrophils Absolute Auto 18.3 x10*3/uL (2.0-8.3); Neutrophils Percent Auto 88.9 % (45-73); Platelet Count 452 X10*3/uL (160-400); Red Blood Count 4.07 X10*6/uL (4.20-5.50); Red Cell Distribution Width 15.9 % (11.0-16.0); White Blood Count 20.6 X10*3/uL (4.8-10.8)
[2023-11-12 05:20] LABS: Anion Gap 14 (12-20); Blood Urea Nitrogen 12 mg/dL (9-16); Calcium 8.5 mg/dL (8.4-10.2); Carbon Dioxide 22 mmol/L (22-29); Chloride 104 mmol/L (96-108); Creatinine Clr Calc Pharmacy 92.7; Estimated Glomerular Filt Rate > 60; Glucose Random 109 mg/dL (60-115); Potassium 3.2 mmol/L (3.3-5.1); Sodium 137 mmol/L (135-145)
[2023-11-12 05:21] LABS: Iron < 7 mcg/dL (30-160); Percent Iron Saturation 5 % (15-50); Total Iron Binding Capacity 132 mcg/dL (228-428); Unsaturated Iron Binding 125 ug/dL
[2023-11-12] MEDS: Morphine Sulfate 4 MG/ML CARTRIDGE IVPUSH ×3 (06:40→21:54)
--- NOTE | 2023-11-12 06:40 | MHC.EDTECH ---
Pt found to be incontinent of urine. Tech and RN did bedding change and attempted to clean Pt with bath wipes. Pt given clean hospital gown and repositioned. Vital signs taken and call wray within reach.
--- NOTE | 2023-11-12 06:41 | PC.NURSE ---
pt linens changed, pt cleaned and assisted in repositioning. pt requesting pain medications for 10/10 right leg pain ,pt medicated per jun.
[2023-11-12] MEDS: Acetaminophen 325 MG TABLET 650 MG PO (07:15)
[2023-11-12] MEDS: 0.9 % Sodium Chloride Flush 3 ML SYRINGE IVFLUSH ×2 (07:16→15:44)
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
[2023-11-12] MEDS: Enoxaparin Sodium 40 MG/0.4 ML SYRINGE 60 MG SUBCUT ×2 (08:27→20:32)
--- NOTE | 2023-11-12 08:30 | PC.NURSE ---
pt medicated per provider order. pt continues to request for pain medication/ativan. provider notified/aware.
--- NOTE | 2023-11-12 08:58 | PHA.PROG ---
Admission Date/Time: November 12, 2023 00:54 Indication: Sepsis Weight in k.5 kg Adjusted body weight in K.6 kg Serum Creatinine - Last 168 Hours 11/11/23 11/12/23 21:08 04:29 Creatinine 0.82 0.66 Estimated CrCl and GFR - Last 168 Hours 11/11/23 11/12/23 21:08 04:29 Estim Creat Clear Calc 74.6 92.7 Estimated GFR > 60 > 60 Vancomycin Loading Dose: 1,500 mg Current Vancomycin Dosing Regimen: 1,000 q12h Vancomycin Monitoring using AUC goal of 400 - 600 range with trough as surrogate marker: 1,000 q12h Date and Time for next Vancomycin Level to be drawn: 11/12 @ 1100 Pharmacist Comments on Vancomycin Plan: Vancomycin dosing will take advantage of [employer] as a clinical decision support tool that uses Bayesian modeling to calculate individual patient's pharmacokinetic parameters and forecast the patient's drug concentration time course with the target goal AUC 24 range of 400 - 600 mg/L/hr.
[2023-11-12] MEDS: methADONE HCl 20 MG/2 ML ORAL.CONC 30 MG PO (09:27)
--- NOTE | 2023-11-12 09:29 | PC.NURSE ---
methadone dose initiated at 30mg per FASHION MODEL, Dhara Rivas. pt medicated per provider order.
--- NOTE | 2023-11-12 09:36 | PC.NURSE ---
pt being transported upstairs by tech at this time.
--- NOTE | 2023-11-12 11:15 | PHA.MEDREC ---
Pharmacy Consult ? Medication Reconciliation Pharmacy has completed the medication reconciliation.
--- NOTE | 2023-11-12 12:04 | HO.PM.IMPN ---
Subjective Subjective Date of Service: 11/12/23 Interval History: pt seen and examined, she is complaining pain in the hip no fever, blood cultures now reported gram positive cocci 2/2, she is already on vanco and ceftriaxone Physical Exam Vital Signs: Vital Signs: Last Vital Signs Temp 97.6 F 11/12/23 11:24 Pulse 108 H 11/12/23 11:24 Resp 17 11/12/23 11:24 BP 178/83 H 11/12/23 11:24 Pulse Ox 93 11/12/23 11:24 O2 Del Method Room Air 11/12/23 11:24 BMI result Body Mass Index 26.3 General: AO X 3, no acute distress Resp: CTA bilateral CVS: S1,S2,RRR GI: +BS, NT, no distention Skin: she has scabs on legs Neuro: motor grossly intact Psych: appropriate affect Objective Data Active Medications Acetaminophen (Acetaminophen 325 Mg Tablet) 650 mg PO Q6H PRN PRN Reason: Pain, Mild (Pain Scale 1-3), fever or headache Last Admin: 11/12/23 07:15 Dose: 650 mg Documented By: EDITH Calcium Carbonate (Calcium Carbonate 750 Mg Tab.Chew) 750 mg PO Q4H PRN PRN Reason: Heartburn Enoxaparin Sodium (Enoxaparin Sodium 40 Mg/0.4 Ml Syringe) 60 mg SUBCUT Q12H [facility] Last Admin: 11/12/23 08:27 Dose: 60 mg Documented By: EDITH Ceftriaxone Sodium 1 gm/ (Sodium Chloride) 50 mls @ 100 mls/hr IV Q24H [facility] Last Infusion: 11/12/23 04:33 Dose: Infused Documented By: JASPREET Vancomycin HCl 1,000 mg/ (Sodium Chloride) 270 mls @ 270 mls/hr IV Q12H [facility] Magnesium Hydroxide (Milk Of Magnesia 30 Ml Oral.Susp) 30 ml PO DAILY PRN PRN Reason: Constipation Melatonin (Melatonin 3 Mg Tablet) 6 mg PO BEDTIME PRN PRN Reason: Insomnia Morphine Sulfate (Morphine Sulfate 4 Mg/Ml Cartridge) 4 mg IVPUSH Q4H PRN; Protocol PRN Reason: Pain, Severe (Pain Scale 7-10) Last Admin: 11/12/23 06:40 Dose: 4 mg Documented By: JASPREET Nicotine (Nicotine 21 Mg Patch.Td24) 21 mg TRANSDERMA DAILY [facility] Last Admin: 11/12/23 02:51 Dose: 21 mg Documented By: JASPREET Ondansetron HCl (Ondansetron Hcl 4 Mg/2 Ml Vial) 4 mg IVPUSH Q8H PRN PRN Reason: Nausea and Vomiting Pharmacy Consult (Consult Rx Vancomycin Dosing) 1 each MISCELLANE DAILY PRN PRN Reason: Consult order Sodium Chloride (0.9 % Sodium Chloride Flush 3 Ml Syringe) 3 ml IVFLUSH QSHIFT [facility] Last Admin: 11/12/23 07:16 Dose: 3 ml Documented By: EDITH Labs 11/12/23 04:29 11/12/23 04:29 Labs: Laboratory Results - last 24 hr 11/11/23 11/11/23 11/11/23 19:56 21:08 23:45 MCV 71.8 L MCH 22.8 L MCHC 31.8 RDW 15.9 Plt Count 477 H MPV 10.2 Immature Gran % (Auto) 0.7 H Neut % (Auto) 90.9 H Lymph % (Auto) 3.2 L [place] % (Auto) 4.7 Eos % (Auto) 0.1 Baso % (Auto) 0.4 Lymph # (Auto) 0.5 L [place] # (Auto) 0.8 Eos # (Auto) 0.0 Baso # (Auto) 0.1 Abs Immat Gran (auto) 0.12 H Absolute Neuts (auto) 15.2 H Absolute Nucleated RBC 0.000 Nucleated RBC % (auto) 0.0 Smear Tech's Comments VERIFIED PT 13.9 H INR 1.1 APTT Anion Gap 21 H Estim Creat Clear Calc 74.6 Estimated GFR > 60 Random Glucose 101 Lactic Acid 1.1 Calcium 9.3 Magnesium 2.2 Iron TIBC % Saturation Unsat Iron Binding Total Bilirubin 0.9 Direct Bilirubin 0.2 AST 40 H ALT 24 Alkaline Phosphatase 100 Total Creatine Kinase 156 H C-Reactive Protein 23.18 H Total Protein 10.2 H Albumin 3.2 L Procalcitonin Cancelled 15.79 Urine Color Dark Yellow Urine Appearance Cloudy Urine pH 5.5 Ur Specific [place] >= 1.030 H Urine Protein 100 (2+) H Urine Glucose (UA) Negative Urine Ketones Trace Urine Blood Negative Urine Nitrite Negative Ur Leukocyte Esterase Small (1+) H Urine RBC 0-2 Urine WBC 6-10 H Ur Squamous Epith Cells >20 Other Crystals Present Urine Bacteria 2+ Hyaline Casts >20 Urine Opiates Screen POSITIVE H Ur Buprenorphine Scrn Not Detected Ur Oxycodone Screen Not Detected Urine Methadone Screen Not Detected Urine Fentanyl Screen POSITIVE H Ur Barbiturates Screen Not Detected Ur Phencyclidine Scrn Not Detected Ur Amphetamines Screen Not Detected U Benzodiazepines Scrn Not Detected Urine Cocaine Screen POSITIVE H U Marijuana (THC) Screen Not Detected Ethyl Alcohol < 10 11/12/23 11/12/23 00:43 04:29 MCV 71.2 L 71.0 L MCH 22.7 L 22.6 L MCHC 31.9 31.8 RDW 15.8 15.9 Plt Count 434 H 452 H MPV 10.1 9.9 Immature Gran % (Auto) 1.5 H Neut % (Auto) 88.9 H Lymph % (Auto) 3.3 L [place] % (Auto) 6.0 Eos % (Auto) 0.0 Baso % (Auto) 0.3 Lymph # (Auto) 0.7 L [place] # (Auto) 1.2 Eos # (Auto) 0.0 Baso # (Auto) 0.1 Abs Immat Gran (auto) 0.30 H Absolute Neuts (auto) 18.3 H Absolute Nucleated RBC 0.000 0.000 Nucleated RBC % (auto) 0.0 0.0 Smear Tech's Comments PT 14.9 H INR 1.2 H APTT 25.9 L Anion Gap 14 Estim Creat Clear Calc 92.7 Estimated GFR > 60 Random Glucose 109 Lactic Acid Calcium 8.5 D Magnesium Iron < 7 L TIBC 132 L % Saturation 5 L Unsat Iron Binding 125 Total Bilirubin Direct Bilirubin AST ALT Alkaline Phosphatase Total Creatine Kinase C-Reactive Protein Total Protein Albumin Procalcitonin Urine Color Urine Appearance Urine pH Ur Specific [place] Urine Protein Urine Glucose (UA) Urine Ketones Urine Blood Urine Nitrite Ur Leukocyte Esterase Urine RBC Urine WBC Ur Squamous Epith Cells Other Crystals Urine Bacteria Hyaline Casts Urine Opiates Screen Ur Buprenorphine Scrn Ur Oxycodone Screen Urine Methadone Screen Urine Fentanyl Screen Ur Barbiturates Screen Ur Phencyclidine Scrn Ur Amphetamines Screen U Benzodiazepines Scrn Urine Cocaine Screen U Marijuana (THC) Screen Ethyl Alcohol Assessment and Plan (1) IVDU (intravenous drug user): Status: Acute (2) Fever: Status: Acute (3) Acute deep vein thrombosis (DVT) of right lower extremity: Status: Acute Plan 48-year-old female with pertinent history of tobacco use disorder, IV polysubstance use disorder who was brought to the emergency department after she [place] lying near the train track and screaming for help, complaining of leg pain. Acute DVT of right lower extremity: Initiated therapeutic Lovenox. Dr. Ivan Rucker, [facility] vascular surgery consulted>> no surgical intervention warranted. Sepsis d/t gram postive cocci bacteremia in chain, likely staph, at this point source unclear ? skin, septic emboli.. -continue ceftriaxone + Vanco, ID consult , Echo to rule endocarditis, repeat blood in 24 hours Elevated BP could be related to withdrawal--start clonidine 0.1 bid and monitor -Right adrenal nodule: >4cm and >10 HU. Obtaining DHEA-S, plasma metanephrine, PAC, renin aldosterone to rule out hormonal hypersecretion - may need further imaging Microcytic anemia: Likely chronic, above transfusion threshold Polysubstance IV drug use disorder: UDS positive for cocaine, fentanyl and opiates. Consulting Addiction Team. Monitor for withdrawal -add clonidine, hydroxyzine and methadone per addiction med Homelessness: Consulting case management Tobacco use disorder: Nicotine patch while in the hospital. Counseled regarding cessation DVT prophylaxis: Lovenox Full code Quality Stroke Does the patient have a stroke diagnosis?: No VTE Prior VTE?: No VTE Risk Level:: Medical - moderate - high VTE Device Contraindication: Treatment Not Indicated VTE Drug Contraindication: N/A - Med Ordered
[2023-11-12] MEDS: hydrOXYzine HCL 25 MG TABLET PO (13:35)
[2023-11-12] MEDS: vancomycin HCL 1,000 MG in 0.9 % Sodium Chloride 250 ML 270 MG IV ×2 (14:10→23:52)
[2023-11-12] MEDS: Lactated Ringers 1,000 ML 150 ML IVCONT (15:42)
[2023-11-12] MEDS: amLODIPine Besylate 5 MG TABLET PO (17:07)
[2023-11-12] MEDS: HYDROmorphone HCl 2 MG TABLET PO (18:07)
[2023-11-12] MEDS: Ibuprofen 600 MG TABLET PO (20:30)
[2023-11-12] MEDS: Albumin Human 25 % 100 ML 133.33 ML IV ×2 (21:58→23:02)
[2023-11-12 22:13] LABS: Lactic Acid 0.8 mmol/L (0.5-2.0)
[2023-11-13] VITALS (9 sets, daily range): BP systolic 136–172; BP diastolic 68–87; PULSE 90–117; RESP 18–38; TEMP 36.7–39.7; O2SAT 91–96
--- NOTE | 2023-11-13 | ECG_ITS ---
Test Reason : HEART RATE 130S Blood Pressure : / mmHG Vent. Rate : 119 BPM Atrial Rate : 119 BPM P-R Int : 136 ms QRS Dur : 068 ms QT Int : 304 ms P-R-T Axes : 055 040 053 degrees QTc Int : 427 ms Sinus tachycardia Septal infarct (cited on or before 12-NOV-2023) ST depression inferior and anterior leads Abnormal ECG When compared with ECG of 12-NOV-2023 00:29, ST depression more prominent Referred By: Suzette Lutz Electronically Signed By:DEBBIE LOPEZ
[2023-11-13] MEDS: Morphine Sulfate 4 MG/ML CARTRIDGE IVPUSH ×6 (01:45→21:54)
[2023-11-13] MEDS: cefTRIAXone sodium 1 GM in 0.9 % Sodium Chloride 50 ML IV ×2 (01:50→13:24)
[2023-11-13] MEDS: Acetaminophen 325 MG TABLET 650 MG PO ×2 (03:28→18:36)
[2023-11-13] MEDS: Lactated Ringers 1,000 ML 150 ML IVCONT (03:30)
--- NOTE | 2023-11-13 07:00 | CA_ITS ---
Transthoracic Echocardiogram Patient (Last, First, Middle): Emely Robin, Gender: Female Date of : 1975 Age: 48 Procedure Date: 11/13/2023 Procedure Type: Transthoracic [place] [facility] [place]: 165.1 cm Weight: 71.67 kg BSA: 1.79 m2 Heart Rate: 113 bpm BP: 172 / 87 mmHg Title Insurance Sales Representative: SB Referring MD: Pola Barrera MD Symptoms: bacteremia Study Quality: Fair ECG Rhythm: Tachycardia Conclusions: - The left ventricular systolic function is mildly decreased. The calculated ejection fraction is 52% by biplane method. - The basal inferior and basal inferolateral segments are hypokinetic. - No obvious valvular pathology seen on this study. Findings Left Ventricle Normal left ventricular cavity size. The left ventricular systolic function is mildly decreased. The calculated ejection fraction is 52% by biplane method. There is evidence of regional wall motion abnormalities. Diastolic function is normal for age. There is mild septal asymmetric hypertrophy. Wall Motion Rest Echo Findings The basal inferior and basal inferolateral segments are hypokinetic. Right Ventricle Mildly increased right ventricular cavity size. There is normal right ventricular systolic function. Atria Both atria are normal in size. Aortic Valve The aortic valve was not well visualized. There is no aortic valve stenosis. There is no aortic valve regurgitation. Mitral Valve The mitral valve appears normal. There is no mitral valve regurgitation. There is no mitral valve stenosis. Pulmonic Valve The pulmonic valve is likely normal. Tricuspid Valve Normal tricuspid valve structure. There is trace tricuspid valve regurgitation. There is no evidence of pulmonary hypertension. Great Vessels The aorta was not well visualized. The aortic annulus and sinuses of valsalva are normal in size. Venous The inferior vena cava is normal in size and collapses greater than 50% with inspiration. Pericardium/Pleural There is no evidence of pericardial effusion. Prior Study Comparison No prior study available for comparison. Recommendations, Care & Conclusions No obvious valvular pathology seen on this study. Measurements 2D Linear Measurements IVSd: 1.05 0.6-0.9/0.6-1.0 cm LVIDd: 4.42 3.9-5.3/4.2-5.9 cm LVIDd Index: 2.47 2.4-3.2/2.2-3.1 cm/m2 LVIDs: 3.53 2.0-3.6 cm LVPWd: 0.63 0.7-1.1 cm LA Diam: 3.60 2.7-3.8/3.0-4.0 cm LAIDs Index: 2.01 1.5-2.3 cm/m2 LV Mass: 146.37 67-162/88-224 g LV Mass Index: 81.77 43-95/49-115 g/m2 LVOT Diam: 1.80 3.0+(-)1.3 cm 2D Systolic Function EF 4C: 46.60 >55% EF 2C: 58.00 >55% EF BiP: 52.00 >55% Mitral Valve MV Pk E: 1.05 MV PK A: 0.93 MV Decel Time: 193.00 E/A: 1.10 E'Lateral: 12.10 E'Medial: 8.05 E/E' Med: 13.00 E/E' Lat: 8.70 PHT: 57.00 MVA PHT: 3.86 Decel [place]: 5.41 Aortic Valve AoV Pk Javed: 1.70 AoV Pk Grad: 12.00 [place]: 2.10 LVOT LVOT Pk Javed: 1.45 LVOT Mn Javed: 1.06 LVOT VTI: 0.23 LVOT Pk Grad: 8.00 LVOT Mn Grad: 5.00 LVOT Diam: 1.80 LVOT Area: 2.54 Diastolic Function MV Pk E: 1.05 MV Pk A: 0.93 E/A: 1.10 E'Medial: 8.05 E/E' Med: 13.00 E' Laterial: 12.10 E/E' Lat: 8.70 Right Ventricle TAPSE (mm): 18.90 TVS' Javed: 20.00 Tricuspid Valve TR Pk Javed: 2.52 TR Pk Grad: 25.00 RA Press: 3.00 RVSP: 28.00 Great Vessels Aorta Sinus of Valsalva: 2.90 2.0-3.5 cm Pulmonary Valve PV Pk Javed: 1.26 Peak PV Grad: 6.00 Updated in Other Vendor System with Status of Final Daniel Webb MD electronically signed on 11/13/2023 3:45:11 PM with status of Final
[2023-11-13 07:12] LABS: Blood Urea Nitrogen 6 mg/dL (9-16); Calcium 8.7 mg/dL (8.4-10.2); Creatinine Clr Calc Pharmacy 110.7; Estimated Glomerular Filt Rate > 60; Glucose Random 87 mg/dL (60-115)
[2023-11-13 07:17] LABS: INTERNATIONAL NORM RATIO 1.3 (0.9-1.1); Prothrombin Time 15.7 SEC (11.1-13.3)
[2023-11-13 07:28] LABS: Anion Gap 14 (12-20); Carbon Dioxide 29 mmol/L (22-29); Chloride 99 mmol/L (96-108); Potassium 2.4 mmol/L (3.3-5.1); Sodium 140 mmol/L (135-145)
[2023-11-13 07:33] LABS: Hematocrit 27.8 % (37.0-47.0); Hemoglobin 8.9 g/dl (12.0-16.0); Mean Corpuscular Hemoglobin 22.5 pg (27.0-33.0); Mean Corpuscular Volume 70.4 fL (80.0-98.0); Mean Platelet Volume 9.9 fL (9.4-12.3); Platelet Count 410 X10*3/uL (160-400); Red Blood Count 3.95 X10*6/uL (4.20-5.50); Red Cell Distribution Width 15.6 % (11.0-16.0)
--- NOTE | 2023-11-13 07:33 | P.PNIM_ITS ---
Subjective Subjective Date of Service: 11/13/23 Interval History: pt seen and examined, she is complaining pain in the hip persistent fevers Physical Exam 2 Vital Signs: Vital Signs: Last Vital Signs Temp 100.1 F 11/13/23 05:21 Pulse 94 11/13/23 03:24 Resp 20 11/13/23 03:24 BP 172/87 H 11/13/23 03:24 Pulse Ox 96 11/13/23 03:24 O2 Del Method Room Air 11/13/23 03:24 BMI result Body Mass Index 26.3 General: AO X 3, no acute distress Resp: CTA bilateral CVS: S1,S2,RRR GI: +BS, NT, no distention Skin: old scabs onlegs Neuro: motor grossly intact Psych: appropriate affect Const: Other: General: AO X 3, no acute distress Resp: CTA bilateral CVS: S1,S2,RRR GI: +BS, NT, no distention Skin: No rash Neuro: motor grossly intact Psych: appropriate affect Objective Data Active Medications Acetaminophen (Acetaminophen 325 Mg Tablet) 650 mg PO Q6H PRN PRN Reason: Pain, Mild (Pain Scale 1-3), fever or headache Last Admin: 11/13/23 03:28 Dose: 650 mg Documented By: MONIK Amlodipine Besylate (Amlodipine Besylate 5 Mg Tablet) 5 mg PO DAILY [facility]; Protocol Last Admin: 11/12/23 17:07 Dose: 5 mg Documented By: KYM Calcium Carbonate (Calcium Carbonate 750 Mg Tab.Chew) 750 mg PO Q4H PRN PRN Reason: Heartburn Clonidine HCl (Clonidine Hcl 0.1 Mg Tablet) 0.1 mg PO BID [facility]; Protocol Last Admin: 11/12/23 20:47 Dose: Not Given Documented By: MONIK Non-Admin Reason: Patient Refused Enoxaparin Sodium (Enoxaparin Sodium 40 Mg/0.4 Ml Syringe) 60 mg SUBCUT Q12H [facility] Last Admin: 11/12/23 20:32 Dose: 60 mg Documented By: MONIK Hydromorphone HCl (Hydromorphone Hcl 2 Mg Tablet) 2 mg PO Q4H PRN PRN Reason: Pain, Moderate(Pain Scale 4-6) Last Admin: 11/12/23 18:07 Dose: 2 mg Documented By: KYM Hydroxyzine HCl (Hydroxyzine Hcl 25 Mg Tablet) 25 mg PO Q8H PRN PRN Reason: anxiety/restlessness Last Admin: 11/12/23 13:35 Dose: 25 mg Documented By: KYM Ceftriaxone Sodium 1 gm/ (Sodium Chloride) 50 mls @ 100 mls/hr IV Q24H [facility] Last Infusion: 11/13/23 02:26 Dose: Infused Documented By: MONIK Vancomycin HCl 1,000 mg/ (Sodium Chloride) 270 mls @ 270 mls/hr IV Q12H [facility] Last Infusion: 11/13/23 00:56 Dose: Infused Documented By: MONIK Lactated Ringer's (Lr) 1,000 mls @ 150 mls/hr IVCONT .Q6H40M [facility] Last Admin: 11/13/23 03:30 Dose: 150 mls/hr Documented By: MONIK Potassium Chloride (Potassium Chloride/H20) 10 meq in 100 mls @ 100 mls/hr IV Q1H [facility] Stop: 11/13/23 09:29 Magnesium Hydroxide (Milk Of Magnesia 30 Ml Oral.Susp) 30 ml PO DAILY PRN PRN Reason: Constipation Melatonin (Melatonin 3 Mg Tablet) 6 mg PO BEDTIME PRN PRN Reason: Insomnia Methadone HCl (Methadone Hcl 20 Mg/2 Ml Oral.Conc) 10 mg PO DAILY PRN PRN Reason: Opiate Withdrawal Methadone HCl (Methadone Hcl 20 Mg/2 Ml Oral.Conc) 40 mg PO DAILY [facility] Morphine Sulfate (Morphine Sulfate 4 Mg/Ml Cartridge) 4 mg IVPUSH Q4H PRN; Protocol PRN Reason: Pain, Severe (Pain Scale 7-10) Last Admin: 11/13/23 05:47 Dose: 4 mg Documented By: MONIK Nicotine (Nicotine 21 Mg Patch.Td24) 21 mg TRANSDERMA DAILY [facility] Last Admin: 11/12/23 02:51 Dose: 21 mg Documented By: JASPREET Ondansetron HCl (Ondansetron Hcl 4 Mg/2 Ml Vial) 4 mg IVPUSH Q8H PRN PRN Reason: Nausea and Vomiting Pharmacy Consult (Consult Rx Vancomycin Dosing) 1 each MISCELLANE DAILY PRN PRN Reason: Consult order Potassium Chloride (Potassium Chloride Er 20 Meq Tab.Er.Prt) 40 meq PO Q6H [facility] Stop: 11/13/23 19:31 Sodium Chloride (0.9 % Sodium Chloride Flush 3 Ml Syringe) 3 ml IVFLUSH QSHIFT [facility] Last Admin: 11/13/23 00:10 Dose: Not Given Documented By: MONIK Non-Admin Reason: IV Running Labs 11/13/23 06:11 11/13/23 06:11 Labs: Laboratory Results - last 24 hr 11/12/23 11/13/23 21:53 06:11 PT 15.7 H INR 1.3 H Anion Gap 14 Estim Creat Clear Calc 110.7 Estimated GFR > 60 Random Glucose 87 Lactic Acid 0.8 Calcium 8.7 Hold Yellow Top See Note Microbiology Microbiology Results: Microbiology 11/11/23 23:48 Blood Culture - Preliminary Blood - Venous Prelim: GPC Gram Stain only 11/11/23 20:23 Urine Culture - Preliminary Urine clean catch - Clean Catch Midstream Culture too young to evaluate. 11/11/23 23:48 Blood Culture - Preliminary Blood - Venous Prelim: GPC Gram Stain only Assessment and Plan (1) IVDU (intravenous drug user): Status: Acute (2) Fever: Status: Acute (3) Acute deep vein thrombosis (DVT) of right lower extremity: Status: Acute Plan 48-year-old female with pertinent history of tobacco use disorder, IV polysubstance use disorder who was brought to the emergency department [place] track and screaming for help, complaining of leg pain. Acute DVT of right lower extremity, no particular triger -continue Lovenox - Dr. Ivan Rucker, [facility] vascular surgery consulted>> no surgical intervention warranted -hematology consult for unprovoked DVT and adrenal mass Sepsis d/t gram postive cocci bacteremia in chain, likely staph, at this point source unclear ? skin, septic emboli.. -continue ceftriaxone + Vanco, ID consult , Echo to rule endocarditis, repeat blood today 11/12 Elevated BP likely untreated HTN--started Norvasc 5, add lisinopril 10, refusin clonidine -Right adrenal nodule: >4cm and >10 HU. Obtaining DHEA-S, plasma metanephrine, PAC, renin aldosterone to rule out hormonal hypersecretion - may need further imaging.. Onc consult Microcytic anemia: Likely chronic, above transfusion threshold Hypokalemia--2.4, replace with PO and IV and recheck later, check magnesium Polysubstance IV drug use disorder: UDS positive for cocaine, fentanyl and opiates. Monitor for withdrawal -add clonidine, hydroxyzine and methadone per addiction med Homelessness: Consulting case management Tobacco use disorder: Nicotine patch while in the hospital. Counseled regarding cessation DVT prophylaxis: Lovenox Full code inpt for IV abx for sepsis/bacteremia Quality Stroke Does the patient have a stroke diagnosis?: No VTE Prior VTE?: No VTE Risk Level:: Medical - moderate - high VTE Device Contraindication: Treatment Not Indicated VTE Drug Contraindication: N/A - Med Ordered
[2023-11-13 07:51] LABS: Magnesium 1.8 mg/dL (1.6-2.6)
[2023-11-13] MEDS: methADONE HCl 20 MG/2 ML ORAL.CONC 40 MG PO (08:00)
[2023-11-13] MEDS: Potassium Chloride ER 20 MEQ TAB.ER.PRT 40 MEQ PO ×3 (08:09→21:53)
[2023-11-13] MEDS: lisinopriL 10 MG TABLET PO (08:09)
[2023-11-13] MEDS: amLODIPine Besylate 5 MG TABLET PO (08:09)
[2023-11-13] MEDS: hydrOXYzine HCL 25 MG TABLET PO (08:10)
[2023-11-13] MEDS: Nicotine 21 MG PATCH.TD24 TRANSDERMA (08:10)
[2023-11-13] MEDS: Potassium Chloride/H20 10 MEQ/100 ML PIGGYBACK 100 MEQ IV ×2 (08:12→09:42)
[2023-11-13] MEDS: Enoxaparin Sodium 40 MG/0.4 ML SYRINGE 60 MG SUBCUT ×2 (08:15→21:54)
--- NOTE | 2023-11-13 11:20 | HO.ADDICT_ITS ---
History of Present Illness Date of Service: 11/12/2013 Chief Complaint: leg pain Reason for Consult: OUD Sources of Information: patient interviewed and chart reviewed HPI Narrative: Patient is a 48 year old female medically admitted with DVT. Methadone administered yesterday (11/11) to address withdrawal sx at time of admission This morning methadone 40mg administered, seen by this designer writer shortly after. She was awake, alert, somewhat engaged in interview. Challenging to understand patient as her speech is not very clear due to mumbling and lack of teeth. She reports that current dose is not as effective as she would like, but it is helping . She states she was previously on methadone 100(davon)mg via [facility] in [facility] where she previously resided. She said her last dose was about 5 months ago. Unclear if she tapered or stopped abruptly. She stated she was not happy about restarting methadone here, but willing to stay at a a lower dose, does not know if she wants to continue outpatient. Reports 3-4 bundles daily along with cocaine Denies any alcohol use When asked about withdrawal sx, she reported all over body pain, stomach upset, and irritability. Medical Evaluation Reviewed: Yes Review of Systems Constitutional: Reports as per HPI Diagnostics Vital Signs (24Hr): Vital Signs - 24 hr 11/12/23 11:24 11/12/23 15:54 11/12/23 17:07 Temperature 97.6 F 100.0 F Pulse Rate 108 H 108 H Respiratory Rate 17 18 Blood Pressure 178/83 H 171/89 H 172/90 H Pulse Oximetry 93 94 Oxygen Delivery Method Room Air Room Air 11/12/23 19:20 11/12/23 21:42 11/12/23 23:33 Temperature 101.5 F H 98.1 F Pulse Rate 123 H 108 H 89 Respiratory Rate 24 H 20 Blood Pressure 163/76 H 160/63 H Pulse Oximetry 93 94 Oxygen Delivery Method Room Air Room Air 11/13/23 03:24 11/13/23 05:21 11/13/23 08:00 Temperature 101.2 F H 100.1 F 98.1 F Pulse Rate 94 90 Respiratory Rate 20 18 Blood Pressure 172/87 H 140/68 H Pulse Oximetry 96 91 L Oxygen Delivery Method Room Air Room Air BMI result Body Mass Index 26.3 Labs 11/13/23 06:11 11/13/23 14:42 Labs: Laboratory Results - last 48 hr 11/11/23 11/11/23 11/11/23 19:56 21:08 23:45 WBC 16.7 H RBC 4.86 Hgb 11.1 L Hct 34.9 L MCV 71.8 L MCH 22.8 L MCHC 31.8 RDW 15.9 Plt Count 477 H MPV 10.2 Immature Gran % (Auto) 0.7 H Neut % (Auto) 90.9 H Lymph % (Auto) 3.2 L Tompkins % (Auto) 4.7 Eos % (Auto) 0.1 Baso % (Auto) 0.4 Lymph # (Auto) 0.5 L Tompkins # (Auto) 0.8 Eos # (Auto) 0.0 Baso # (Auto) 0.1 Abs Immat Gran (auto) 0.12 H Absolute Neuts (auto) 15.2 H Absolute Nucleated RBC 0.000 Nucleated RBC % (auto) 0.0 Smear Tech's Comments VERIFIED PT 13.9 H INR 1.1 APTT Sodium 136 Potassium 4.6 Chloride 97 Carbon Dioxide 23 Anion Gap 21 H BUN 19 H Creatinine 0.82 Estim Creat Clear Calc 74.6 Estimated GFR > 60 Random Glucose 101 Lactic Acid 1.1 Calcium 9.3 Magnesium 2.2 Iron TIBC % Saturation Unsat Iron Binding Total Bilirubin 0.9 Direct Bilirubin 0.2 AST 40 H ALT 24 Alkaline Phosphatase 100 Total Creatine Kinase 156 H C-Reactive Protein 23.18 H Total Protein 10.2 H Albumin 3.2 L Procalcitonin Cancelled 15.79 Hold Yellow Top Urine Color Dark Yellow Urine Appearance Cloudy Urine pH 5.5 Ur Specific Mobile >= 1.030 H Urine Protein 100 (2+) H Urine Glucose (UA) Negative Urine Ketones Trace Urine Blood Negative Urine Nitrite Negative Ur Leukocyte Esterase Small (1+) H Urine RBC 0-2 Urine WBC 6-10 H Ur Squamous Epith Cells >20 Other Crystals Present Urine Bacteria 2+ Hyaline Casts >20 Urine Opiates Screen POSITIVE H Ur Buprenorphine Scrn Not Detected Ur Oxycodone Screen Not Detected Urine Methadone Screen Not Detected Urine Fentanyl Screen POSITIVE H Ur Barbiturates Screen Not Detected Ur Phencyclidine Scrn Not Detected Ur Amphetamines Screen Not Detected U Benzodiazepines Scrn Not Detected Urine Cocaine Screen POSITIVE H U Marijuana (THC) Screen Not Detected Ethyl Alcohol < 10 0711/12/23 11/12/23 00:43 04:29 21:53 WBC 21.0 H 20.6 H RBC 3.96 L 4.07 L Hgb 9.0 L 9.2 L Hct 28.2 L 28.9 L MCV 71.2 L 71.0 L MCH 22.7 L 22.6 L MCHC 31.9 31.8 RDW 15.8 15.9 Plt Count 434 H 452 H MPV 10.1 9.9 Immature Gran % (Auto) 1.5 H Neut % (Auto) 88.9 H Lymph % (Auto) 3.3 L Tompkins % (Auto) 6.0 Eos % (Auto) 0.0 Baso % (Auto) 0.3 Lymph # (Auto) 0.7 L Tompkins # (Auto) 1.2 Eos # (Auto) 0.0 Baso # (Auto) 0.1 Abs Immat Gran (auto) 0.30 H Absolute Neuts (auto) 18.3 H Absolute Nucleated RBC 0.000 0.000 Nucleated RBC % (auto) 0.0 0.0 Smear Tech's Comments PT 14.9 H INR 1.2 H APTT 25.9 L Sodium 137 Potassium 3.2 L D Chloride 104 Carbon Dioxide 22 Anion Gap 14 BUN 12 Creatinine 0.66 Estim Creat Clear Calc 92.7 Estimated GFR > 60 Random Glucose 109 Lactic Acid 0.8 Calcium 8.5 D Magnesium Iron < 7 L TIBC 132 L % Saturation 5 L Unsat Iron Binding 125 Total Bilirubin Direct Bilirubin AST ALT Alkaline Phosphatase Total Creatine Kinase C-Reactive Protein Total Protein Albumin Procalcitonin Hold Yellow Top See Note Urine Color Urine Appearance Urine pH Ur Specific Mobile Urine Protein Urine Glucose (UA) Urine Ketones Urine Blood Urine Nitrite Ur Leukocyte Esterase Urine RBC Urine WBC Ur Squamous Epith Cells Other Crystals Urine Bacteria Hyaline Casts Urine Opiates Screen Ur Buprenorphine Scrn Ur Oxycodone Screen Urine Methadone Screen Urine Fentanyl Screen Ur Barbiturates Screen Ur Phencyclidine Scrn Ur Amphetamines Screen U Benzodiazepines Scrn Urine Cocaine Screen U Marijuana (THC) Screen Ethyl Alcohol 11/13/23 06:11 WBC 15.0 H RBC 3.95 L Hgb 8.9 L Hct 27.8 L MCV 70.4 L MCH 22.5 L MCHC 32.0 RDW 15.6 Plt Count 410 H MPV 9.9 Immature Gran % (Auto) Neut % (Auto) Lymph % (Auto) Tompkins % (Auto) Eos % (Auto) Baso % (Auto) Lymph # (Auto) Tompkins # (Auto) Eos # (Auto) Baso # (Auto) Abs Immat Gran (auto) Absolute Neuts (auto) Absolute Nucleated RBC 0.000 Nucleated RBC % (auto) 0.0 Smear Tech's Comments PT 15.7 H INR 1.3 H APTT Sodium 140 Potassium 2.4 L* D Chloride 99 Carbon Dioxide 29 Anion Gap 14 BUN 6 L Creatinine 0.61 Estim Creat Clear Calc 110.7 Estimated GFR > 60 Random Glucose 87 Lactic Acid Calcium 8.7 Magnesium 1.8 Iron TIBC % Saturation Unsat Iron Binding Total Bilirubin Direct Bilirubin AST ALT Alkaline Phosphatase Total Creatine Kinase C-Reactive Protein Total Protein Albumin Procalcitonin Hold Yellow Top Urine Color Urine Appearance Urine pH Ur Specific Mobile Urine Protein Urine Glucose (UA) Urine Ketones Urine Blood Urine Nitrite Ur Leukocyte Esterase Urine RBC Urine WBC Ur Squamous Epith Cells Other Crystals Urine Bacteria Hyaline Casts Urine Opiates Screen Ur Buprenorphine Scrn Ur Oxycodone Screen Urine Methadone Screen Urine Fentanyl Screen Ur Barbiturates Screen Ur Phencyclidine Scrn Ur Amphetamines Screen U Benzodiazepines Scrn Urine Cocaine Screen U Marijuana (THC) Screen Ethyl Alcohol Imaging Radiology Impressions: ITS Impressions Venous Duplex 11/11/23 20:51 IMPRESSION: Acute DVT of the right mid femoral, distal femoral, popliteal, peroneal, and posterior tibial veins. This critical test result was discussed with Dr. Huitron at 9:22 PM on 11/11/[address] Jerel Paul at the time of discovery. It was ascertained that the content and the importance of the findings was understood at the time of the direct communication. Hip CT 11/11/23 22:46 IMPRESSION: 1. Severe right hip osteoarthritis with a small joint effusion. 2. No acute fracture or dislocation. No evidence of avascular necrosis. Chest CT 11/11/23 22:54 IMPRESSION: 1. Soft tissue nodule within the medial aspect of the right upper lobe measuring 0.4 x 0.7 cm, for an average of 0.55 cm. Right minor fissure subpleural nodule measuring 0.2 cm. Minimal linear bibasilar atelectasis. Subpleural bleb within the left upper lobe measuring up to 2.5 cm. According to the UPDATED 2017 Fleischner Society recommendations, the advised follow-up imaging for nodules <6mm in the upper lobes is not necessarily required in low-risk patients. In high-risk patients with a nodule in the upper lobe and/or demonstrating suspicious morphology, an optional CT follow-up at 12 months may be obtained. If stable at 12 months, no further follow-up is recommended. 2. Partially visualized right adrenal nodule measuring 4.3 x 2.0 cm in greatest axial dimension, with Hounsfield units measuring 14.4. Given the size greater than 4 cm and Hounsfield units greater than 10, findings could indicate possible malignancy. Surgical consultation is recommended. Consider biochemical lab evaluation for functional status and pheochromocytoma prior to resection. 3. Prominent degenerative disc disease at T6-T7. Fleischner guidelines were followed. Head CT 11/12/23 03:15 IMPRESSION: 1. No acute intracranial process seen. 2. Bilateral maxillary sinus mucosal thickening/opacities. Mental Status Exam Mental Status Exam Patient Appearance: Disheveled Level of Consciousness: Awake and Alert Patient Behavior: Guarded Medications Medications Current Medications Acetaminophen (Acetaminophen 325 Mg Tablet) 650 mg PO Q6H PRN PRN Reason: Pain, Mild (Pain Scale 1-3), fever or headache Last Admin: 11/13/23 03:28 Dose: 650 mg Amlodipine Besylate (Amlodipine Besylate 5 Mg Tablet) 5 mg PO DAILY [facility]; Protocol Last Admin: 11/13/23 08:09 Dose: 5 mg Calcium Carbonate (Calcium Carbonate 750 Mg Tab.Chew) 750 mg PO Q4H PRN PRN Reason: Heartburn Enoxaparin Sodium (Enoxaparin Sodium 40 Mg/0.4 Ml Syringe) 60 mg SUBCUT Q12H [facility] Last Admin: 11/13/23 08:15 Dose: 60 mg Hydromorphone HCl (Hydromorphone Hcl 2 Mg Tablet) 2 mg PO Q4H PRN PRN Reason: Pain, Moderate(Pain Scale 4-6) Last Admin: 11/12/23 18:07 Dose: 2 mg Hydroxyzine HCl (Hydroxyzine Hcl 25 Mg Tablet) 25 mg PO Q8H PRN PRN Reason: anxiety/restlessness Last Admin: 11/13/23 08:10 Dose: 25 mg Ceftriaxone Sodium 1 gm/ (Sodium Chloride) 50 mls @ 100 mls/hr IV Q24H [facility] Last Infusion: 11/13/23 02:26 Dose: Infused Vancomycin HCl 1,000 mg/ (Sodium Chloride) 270 mls @ 270 mls/hr IV Q12H [facility] Last Infusion: 11/13/23 00:56 Dose: Infused Lactated Ringer's (Lr) 1,000 mls @ 100 mls/hr IVCONT .Q10H [facility] Last Infusion: 11/13/23 07:58 Dose: 100 mls/hr Lisinopril (Lisinopril 10 Mg Tablet) 10 mg PO DAILY [facility]; Protocol Last Admin: 11/13/23 08:09 Dose: 10 mg Magnesium Hydroxide (Milk Of Magnesia 30 Ml Oral.Susp) 30 ml PO DAILY PRN PRN Reason: Constipation Melatonin (Melatonin 3 Mg Tablet) 6 mg PO BEDTIME PRN PRN Reason: Insomnia Methadone HCl (Methadone Hcl 20 Mg/2 Ml Oral.Conc) 10 mg PO DAILY PRN PRN Reason: Opiate Withdrawal Methadone HCl (Methadone Hcl 20 Mg/2 Ml Oral.Conc) 40 mg PO DAILY [facility] Last Admin: 11/13/23 08:00 Dose: 40 mg Morphine Sulfate (Morphine Sulfate 4 Mg/Ml Cartridge) 4 mg IVPUSH Q4H PRN; Protocol PRN Reason: Pain, Severe (Pain Scale 7-10) Last Admin: 11/13/23 09:47 Dose: 4 mg Nicotine (Nicotine 21 Mg Patch.Td24) 21 mg TRANSDERMA DAILY [facility] Last Admin: 11/13/23 08:10 Dose: 21 mg Ondansetron HCl (Ondansetron Hcl 4 Mg/2 Ml Vial) 4 mg IVPUSH Q8H PRN PRN Reason: Nausea and Vomiting Pharmacy Consult (Consult Rx Vancomycin Dosing) 1 each MISCELLANE DAILY PRN PRN Reason: Consult order Potassium Chloride (Potassium Chloride Er 20 Meq Tab.Er.Prt) 40 meq PO Q6H [facility] Stop: 11/13/23 19:31 Last Admin: 11/13/23 08:09 Dose: 40 meq Sodium Chloride (0.9 % Sodium Chloride Flush 3 Ml Syringe) 3 ml IVFLUSH QSHIFT [facility] Last Admin: 11/13/23 08:16 Dose: Not Given Allergies Allergies Allergy/AdvReac Type Severity Reaction Status Date / Time clindamycin Allergy Unknown Verified 11/11/23 19:26 Penicillins Allergy Unknown Verified 11/11/23 19:26 Assessment & Plan Assessment & Plan (1) Opioid use disorder: Status: Acute Code(s): F11.90 - Opioid use, unspecified, uncomplicated Assessment and Plan: * methadone 50mg today (40mg in AM and 10mg PRN dose) * continue at 50mg as patient is unsure if she wishes to continue post discharge * continue to follow and adjust dose in AM if needed * continue PRN pain meds and comfort meds as appropriate Total time managing care of this patient today __35__ minutes. PMFSH Social History Social History Household Members: None Housing: Homeless Patient Tobacco Use Status: Former Tobacco user Substance Use Type: Crack/Cocaine service: No
[2023-11-13 11:44] LABS: Vancomycin Random 7.4 mcg/mL (15-20)
--- NOTE | 2023-11-13 11:53 | HE.PHANOTE ---
Re Vanc Trough returned at 7.4mg/L, projected AUC was 339. Will increase dosing frequency for 1000mg q8h. This should achieve an AUC of 508 and a trough of 13.6. Next level ordered for 11/13 @1000.
[2023-11-13] MEDS: Lactated Ringers 1,000 ML 100 ML IVCONT ×2 (12:39→23:02)
[2023-11-13] MEDS: methADONE HCl 20 MG/2 ML ORAL.CONC 10 MG PO (12:50)
[2023-11-13] MEDS: vancomycin HCL 1,000 MG in 0.9 % Sodium Chloride 250 ML 270 MG IV (12:50)
--- NOTE | 2023-11-13 13:55 | MHC.CM.PN ---
Pt is homeless, she does not have a PCP, agrees that it would be good for her to have one, she said she has Medicaid for insurance. She would like assistance to a custodial at [place]. CM to follow and assist with DC plan.
[2023-11-13 14:18] LABS: DHEA Sulfate 204 mcg/dL (15-205)
[2023-11-13 15:08] LABS: Anion Gap 15 (12-20); Carbon Dioxide 24 mmol/L (22-29); Chloride 99 mmol/L (96-108); Potassium 3.4 mmol/L (3.3-5.1); Sodium 135 mmol/L (135-145)
--- NOTE | 2023-11-13 15:16 | P.CNHO_ITS ---
Subjective - Subjective Chief complaint: Leg pain Patient: new to practice Consult date: 11/14/23 Primary Care Provider: None Physician HPI - Consult Narrative Reason for consult: Adrenal mass Narrative: Emely Robin is a 48 year old female with history of IV polysubstance abuse disorder, smoker who is admitted for right lower extremity DVT. She was brought in by EMS, [place] track with complaints of right leg pain. Imaging revealed acute DVT in the right mid femoral distal femoral, popliteal, peroneal and posterior tibial veins. CT chest without contrast performed because of a fall revealed right upper lobe nodule measuring 0.7 cm in partially visualized right adrenal mass measuring 4.8 x 2 cm. Patient is unable to provide any history at this time. She is drowsy and complaining of lack of sleep. Review of Systems - Constitutional Reports as per HPI - Neurologic Reports weakness Oncology Screenings - ECOG Performance Status ECOG Performance Status: 3 [facility] Social History: Social History Living Situation History: Household Members: None Housing: Homeless Tobacco History: Patient Tobacco Use Status: Former Tobacco user Substance Use History: Substance Use Type: Crack/Cocaine Occupation Assessmet: service: No Home Medications and Allergies Current Medications: Current Medications Acetaminophen (Acetaminophen 325 Mg Tablet) 650 mg PO Q6H PRN PRN Reason: Pain, Mild (Pain Scale 1-3), fever or headache Last Admin: 11/13/23 03:28 Dose: 650 mg Amlodipine Besylate (Amlodipine Besylate 5 Mg Tablet) 5 mg PO DAILY [facility]; Protocol Last Admin: 11/13/23 08:09 Dose: 5 mg Calcium Carbonate (Calcium Carbonate 750 Mg Tab.Chew) 750 mg PO Q4H PRN PRN Reason: Heartburn Enoxaparin Sodium (Enoxaparin Sodium 40 Mg/0.4 Ml Syringe) 60 mg SUBCUT Q12H [facility] Last Admin: 11/13/23 08:15 Dose: 60 mg Hydromorphone HCl (Hydromorphone Hcl 2 Mg Tablet) 2 mg PO Q4H PRN PRN Reason: Pain, Moderate(Pain Scale 4-6) Last Admin: 11/12/23 18:07 Dose: 2 mg Hydroxyzine HCl (Hydroxyzine Hcl 25 Mg Tablet) 25 mg PO Q8H PRN PRN Reason: anxiety/restlessness Last Admin: 11/13/23 08:10 Dose: 25 mg Lactated Ringer's (Lr) 1,000 mls @ 100 mls/hr IVCONT .Q10H [facility] Last Admin: 11/13/23 12:39 Dose: 100 mls/hr Ceftriaxone Sodium 2 gm/ (Sodium Chloride) 50 mls @ 100 mls/hr IV Q24H [facility] Lisinopril (Lisinopril 10 Mg Tablet) 10 mg PO DAILY [facility]; Protocol Last Admin: 11/13/23 08:09 Dose: 10 mg Magnesium Hydroxide (Milk Of Magnesia 30 Ml Oral.Susp) 30 ml PO DAILY PRN PRN Reason: Constipation Melatonin (Melatonin 3 Mg Tablet) 6 mg PO BEDTIME PRN PRN Reason: Insomnia Methadone HCl (Methadone Hcl 20 Mg/2 Ml Oral.Conc) 10 mg PO DAILY PRN PRN Reason: Opiate Withdrawal Last Admin: 11/13/23 12:50 Dose: 10 mg Methadone HCl (Methadone Hcl 20 Mg/2 Ml Oral.Conc) 40 mg PO DAILY [facility] Last Admin: 11/13/23 08:00 Dose: 40 mg Morphine Sulfate (Morphine Sulfate 4 Mg/Ml Cartridge) 4 mg IVPUSH Q4H PRN; Protocol PRN Reason: Pain, Severe (Pain Scale 7-10) Last Admin: 11/13/23 13:51 Dose: 4 mg Nicotine (Nicotine 21 Mg Patch.Td24) 21 mg TRANSDERMA DAILY [facility] Last Admin: 11/13/23 08:10 Dose: 21 mg Ondansetron HCl (Ondansetron Hcl 4 Mg/2 Ml Vial) 4 mg IVPUSH Q8H PRN PRN Reason: Nausea and Vomiting Pharmacy Consult (Consult Rx Vancomycin Dosing) 1 each MISCELLANE DAILY PRN PRN Reason: Consult order Potassium Chloride (Potassium Chloride Er 20 Meq Tab.Er.Prt) 40 meq PO Q6H [facility] Stop: 11/13/23 19:31 Last Admin: 11/13/23 13:18 Dose: 40 meq Sodium Chloride (0.9 % Sodium Chloride Flush 3 Ml Syringe) 3 ml IVFLUSH QSHIFT [facility] Last Admin: 11/13/23 08:16 Dose: Not Given Home Medications ?Medication ?Instructions ?Recorded ?Confirmed ?Type No Known Home Meds 11/12/23 11/12/23 History Allergies Allergy/AdvReac Type Severity Reaction Status Date / Time clindamycin Allergy Unknown Verified 11/11/23 19:26 Penicillins Allergy Unknown Verified 11/11/23 19:26 Physical Exam Vital signs: Vital Signs Temp 99.5 F 11/13/23 12:00 Pulse 106 H 11/13/23 12:00 Resp 18 11/13/23 12:00 BP 167/82 H 11/13/23 12:00 Pulse Ox 95 11/13/23 12:00 O2 Del Method Room Air 11/13/23 12:00 Intake & Output 11/12/23 11/13/23 11/13/23 18:59 06:59 18:59 Intake Total 925 / 2470 1545 / 2470 1403 / 1403 Output Total 1100 / 1100 Balance 925 / 1370 445 / 1370 1403 / 1403 Urine Output (Average ml/kg/hr) 1.28 1.28 Intake: Intake, Oral Amount 440 / 680 240 / 680 Intake, IV Amount 485 / 1790 1305 / 1790 1403 / 1403 Albumin Human 25 % 100 ml @ 133 200 / 200 .333 mls/hr IV Q1H [facility] Rx#: [id number] Potassium Chloride/H20 10 meq 200 / 200 In 100 ml @ 100 mls/hr IV Q1H [facility] Rx#:[id number] cefTRIAXone sodium 1 gm In 0.9 50 / 50 50 / 50 % Sodium Chloride 50 ml @ 100 mls/hr IV Q24H [facility] Rx#: [id number] vancomycin HCL 1,000 mg In 0.9 270 / 540 270 / 540 153 / 153 % Sodium Chloride 250 ml @ 270 mls/hr IV Q8H [facility] Rx#: [id number] Lactated Ringers 1,000 ml @ 150 215 / 1000 785 / 1000 1000 / 1000 mls/hr IVCONT .Q6H40M [facility] Rx#: [id number] Output: Output, Urine Amount 1100 / 1100 Other: Lunch % Eaten 50% Eating (Feeding) Ability Independent Number of Incontinent Voids 2 Number of Unmeasured Voids 2 Urine Bedpan purewick Urine Color Yellow Pale Yellow Weight 71.7 kg Weight in Grams 45735 Weight 71.7 kg - Constitutional Present: no acute distress, chronically ill appearing, disheveled - Routine HEENT Exam Eye: Present: EOMI, PERRL - Routine Neck Exam Absent: lymphadenopathy - Routine Respiratory Exam Absent: accessory muscle use - Routine Cardiovascular Exam Cardiovascular: Present: S1, S2 - Routine Abdominal Exam Present: soft - Routine Extremities Exam Present: calf tenderness, pedal edema Hem/Onc Consult Result - Labs CBC & Chem 7: 11/14/23 05:35 11/14/23 05:35 Labs: Short CBC 11/13/23 Range/Units 06:11 WBC 15.0 H (4.8-10.8) X10*3/uL Hgb 8.9 L (12.0-16.0) g/dl Hct 27.8 L (37.0-47.0) % Plt Count 410 H (160-400) X10*3/uL BMP 11/13/23 11/13/23 06:11 14:42 Sodium 140 135 Potassium 2.4 L* D 3.4 D Chloride 99 99 Carbon Dioxide 29 24 BUN 6 L Creatinine 0.61 Calcium 8.7 Assessment and Plan Patient Active problem list reviewed?: Yes (1) Adrenal nodule Status: Acute Assessment and plan: 1. This is a 48-year-old woman with IV drug abuse, smoker who is admitted for acute DVT of right lower extremity. She has been started on Lovenox. DVT is probably related to IV drug abuse. She can be switched to direct oral anticoagulant when feasible. She is being treated for sepsis/bacteremia, she is on ceftriaxone and vancomycin. Incidentally found his right adrenal nodule measuring more than 4 cm. Endocrine workup has been ordered. Outpatient referral to carton machine operator can be considered. Primary adrenal neoplasm versus metastasis is in the differential. She has lung nodules that are below 1 cm and do not look suspicious. Alternatively, repeat CT chest/abdomen and pelvis in a few months to re- evaluate. Thank you for the consult. - Time Spent With Patient Time Spent with Patient (in minutes): 15
[2023-11-13] MEDS: Clindamycin Phosphate/D5W 600 MG/50 ML PIGGYBACK 100 MG IV (16:27)
[2023-11-14] VITALS (9 sets, daily range): BP systolic 105–164; BP diastolic 62–81; PULSE 76–111; RESP 16–26; TEMP 36–39.2; O2SAT 89–100
--- NOTE | 2023-11-14 | ECG_ITS ---
Test Reason : ventricular arrythmia Blood Pressure : / mmHG Vent. Rate : 082 BPM Atrial Rate : 082 BPM P-R Int : 126 ms QRS Dur : 084 ms QT Int : 390 ms P-R-T Axes : 002 031 033 degrees QTc Int : 455 ms Sinus rhythm with frequent Premature ventricular complexes Otherwise normal ECG When compared with ECG of 12-NOV-2023 14:06, Premature ventricular complexes are now Present Referred By: Pola Barrera Electronically Signed By:DEBBIE LOPEZ
[2023-11-14] MEDS: Clindamycin Phosphate/D5W 600 MG/50 ML PIGGYBACK 100 MG IV (00:28)
[2023-11-14] MEDS: Morphine Sulfate 4 MG/ML CARTRIDGE IVPUSH ×5 (03:26→20:31)
[2023-11-14] MEDS: Acetaminophen 325 MG TABLET 650 MG PO (03:42)
[2023-11-14] MEDS: cefTRIAXone sodium 2 GM in 0.9 % Sodium Chloride 50 ML IV ×2 (05:11→18:37)
[2023-11-14] MEDS: Pantoprazole Sodium 40 MG/10 ML VIAL IVPUSH (05:49)
[2023-11-14 05:54] LABS: Hematocrit 26.5 % (37.0-47.0); Hemoglobin 8.7 g/dl (12.0-16.0); Mean Corpuscular HGB Conc 32.8 g/dl (31.0-35.0); Mean Corpuscular Volume 69.9 fL (80.0-98.0); Mean Platelet Volume 10.4 fL (9.4-12.3); Platelet Count 391 X10*3/uL (160-400); Red Blood Count 3.79 X10*6/uL (4.20-5.50); Red Cell Distribution Width 15.8 % (11.0-16.0); White Blood Count 10.8 X10*3/uL (4.8-10.8)
[2023-11-14] MEDS: HYDROmorphone HCl 2 MG TABLET PO ×4 (06:00→19:09)
[2023-11-14] MEDS: Clindamycin Phosphate/D5W 900 MG/50 ML PIGGYBACK 50 MG IV ×3 (06:00→20:22)
[2023-11-14] MEDS: Ibuprofen 400 MG TABLET PO (06:00)
[2023-11-14 06:08] LABS: Anion Gap 15 (12-20); Blood Urea Nitrogen 8 mg/dL (9-16); Calcium 8.7 mg/dL (8.4-10.2); Carbon Dioxide 23 mmol/L (22-29); Chloride 99 mmol/L (96-108); Creatinine Clr Calc Pharmacy 112.5; Estimated Glomerular Filt Rate > 60; Glucose Random 87 mg/dL (60-115); Potassium 4.3 mmol/L (3.3-5.1); Sodium 133 mmol/L (135-145)
[2023-11-14] MEDS: Enoxaparin Sodium 40 MG/0.4 ML SYRINGE 60 MG SUBCUT ×2 (07:43→20:24)
[2023-11-14] MEDS: amLODIPine Besylate 5 MG TABLET PO (07:44)
[2023-11-14] MEDS: Nicotine 21 MG PATCH.TD24 TRANSDERMA (07:44)
[2023-11-14] MEDS: lisinopriL 10 MG TABLET PO (07:44)
[2023-11-14] MEDS: methADONE HCl 20 MG/2 ML ORAL.CONC 50 MG PO (07:46)
[2023-11-14 09:33] LABS: Magnesium 1.7 mg/dL (1.6-2.6)
[2023-11-14] MEDS: Lactated Ringers 1,000 ML 150 ML IVCONT ×2 (10:28→19:10)
--- NOTE | 2023-11-14 11:35 | PM.EVENT ---
Event Note Date of Service: 11/14/23 Event Note: Rt hip OA on CT scan -ordered plain films ( xr) Time Spent With Patient Time: Total time managing care of this patient today ____ minutes.
--- NOTE | 2023-11-14 12:13 | PM.CNOR ---
History of Present Illness HPI Consult date: 11/14/23 Chief complaint: leg pain Narrative: 48 yo female admitted to the medical service for bacteremia- startes on iv abx. Blood cx + for Grp A strep. -CT scan of right hip obtained which was significant for severe right hip oa, small joint effusion -infectious source unknown at this time Orthopedics was consulted to r/o hip as source of infection Review of Systems Review of Systems: Yes all other systems are reviewed and are negative PMFSH Social History Social History Household Members: None Housing: Homeless Patient Tobacco Use Status: Former Tobacco user Substance Use Type: Crack/Cocaine service: No Meds Allergies Allergy/AdvReac Type Severity Reaction Status Date / Time clindamycin Allergy Unknown Verified 11/11/23 19:26 Penicillins Allergy Unknown Verified 11/11/23 19:26 Active Medications: Current Medications Acetaminophen (Acetaminophen 325 Mg Tablet) 975 mg PO Q6H PRN PRN Reason: Pain, Mild (Pain Scale 1-3), fever or headache Amlodipine Besylate (Amlodipine Besylate 5 Mg Tablet) 5 mg PO DAILY [facility]; Protocol Last Admin: 11/14/23 07:44 Dose: 5 mg Calcium Carbonate (Calcium Carbonate 750 Mg Tab.Chew) 750 mg PO Q4H PRN PRN Reason: Heartburn Enoxaparin Sodium (Enoxaparin Sodium 40 Mg/0.4 Ml Syringe) 60 mg SUBCUT Q12H [facility] Last Admin: 11/14/23 07:43 Dose: 60 mg Hydromorphone HCl (Hydromorphone Hcl 2 Mg Tablet) 2 mg PO Q4H PRN PRN Reason: Pain, Moderate(Pain Scale 4-6) Last Admin: 11/14/23 10:31 Dose: 2 mg Hydroxyzine HCl (Hydroxyzine Hcl 25 Mg Tablet) 25 mg PO Q8H PRN PRN Reason: anxiety/restlessness Last Admin: 11/13/23 08:10 Dose: 25 mg Lactated Ringer's (Lr) 1,000 mls @ 150 mls/hr IVCONT .Q6H40M [facility] Last Admin: 11/14/23 10:28 Dose: 150 mls/hr Ceftriaxone Sodium 2 gm/ (Sodium Chloride) 50 mls @ 100 mls/hr IV Q12H [facility] Last Infusion: 11/14/23 06:08 Dose: Infused Clindamycin Phosphate (Cleocin) 900 mg in 50 mls @ 50 mls/hr IV Q8H [facility] Last Infusion: 11/14/23 07:00 Dose: Infused Lisinopril (Lisinopril 10 Mg Tablet) 10 mg PO DAILY [facility]; Protocol Last Admin: 11/14/23 07:44 Dose: 10 mg Magnesium Hydroxide (Milk Of Magnesia 30 Ml Oral.Susp) 30 ml PO DAILY PRN PRN Reason: Constipation Melatonin (Melatonin 3 Mg Tablet) 6 mg PO BEDTIME PRN PRN Reason: Insomnia Methadone HCl (Methadone Hcl 20 Mg/2 Ml Oral.Conc) 50 mg PO DAILY [facility] Last Admin: 11/14/23 07:46 Dose: 50 mg Morphine Sulfate (Morphine Sulfate 4 Mg/Ml Cartridge) 4 mg IVPUSH Q4H PRN; Protocol PRN Reason: Pain, Severe (Pain Scale 7-10) Last Admin: 11/14/23 11:58 Dose: 4 mg Nicotine (Nicotine 21 Mg Patch.Td24) 21 mg TRANSDERMA DAILY [facility] Last Admin: 11/14/23 07:44 Dose: 21 mg Ondansetron HCl (Ondansetron Hcl 4 Mg/2 Ml Vial) 4 mg IVPUSH Q8H PRN PRN Reason: Nausea and Vomiting Pantoprazole Sodium (Pantoprazole Sodium 40 Mg/10 Ml Vial) 40 mg IVPUSH DAILY@0630 [facility] Last Admin: 11/14/23 05:49 Dose: 40 mg Sodium Chloride (0.9 % Sodium Chloride Flush 3 Ml Syringe) 3 ml IVFLUSH QSHIFT [facility] Last Admin: 11/14/23 07:46 Dose: Not Given Home Medications ?Medication ?Instructions ?Recorded ?Confirmed ?Last Taken ?Type No Known Home Meds 11/12/23 11/12/23 Unknown History Physical Exam Vital Signs: Vital Signs: Last Vital Signs Temp 97.9 F 11/14/23 10:38 Pulse 87 11/14/23 10:38 Resp 20 11/14/23 10:38 BP 105/62 11/14/23 10:38 Pulse Ox 98 11/14/23 10:38 O2 Del Method Nasal Cannula 11/14/23 10:38 O2 Flow Rate 2 11/14/23 10:38 BMI result Body Mass Index 26.3 Const: General: cooperative and awake Extrem: Other: Right hip normal to inspection Pain with passive ROM of the hip and with passive flexion of the HIP Results Labs 11/14/23 05:35 11/14/23 05:35 Labs: Abnormal lab results 11/14/23 Range/Units 05:35 RBC 3.79 L (4.20-5.50) X10*6/uL Hgb 8.7 L (12.0-16.0) g/dl Hct 26.5 L (37.0-47.0) % MCV 69.9 L (80.0-98.0) fL MCH 23.0 L (27.0-33.0) pg Sodium 133 L (135-145) mmol/L BUN 8 L (9-16) mg/dL H & H 11/11/23 11/12/23 11/12/23 Range/Units 21:08 00:43 04:29 Hgb 11.1 L 9.0 L 9.2 L (12.0-16.0) g/dl Hct 34.9 L 28.2 L 28.9 L (37.0-47.0) % 11/13/23 11/14/23 Range/Units 06:11 05:35 Hgb 8.9 L 8.7 L (12.0-16.0) g/dl Hct 27.8 L 26.5 L (37.0-47.0) % Coagulation 11/11/23 11/12/23 11/13/23 Range/Units 21:08 00:43 06:11 INR 1.1 1.2 H 1.3 H (0.9-1.1) All other labs normal. Assessment and Plan (1) Osteoarthritis of right hip: Status: Acute Plan Xr of right hip ordered Discussed case with Dr Barrera, they can obtain asp of right hip under IR to determine if hip is source of infection Unsure based off exam due to severe OA, this could present with severe pain and diff with motion. Procedures Date of Service Date of Service: 11/14/23
[2023-11-14] MEDS: iohexoL 350 MG/ML 100 ML INFUS..BTL 65 ML IV (12:31)
--- NOTE | 2023-11-14 13:11 | HO.PM.IMPN ---
Subjective Subjective Date of Service: 11/14/23 Interval History: pt seen and examined Still c/o hip pain, and pain all over, Tachycardia resolved, BP no longer high and patient overall seemed comfortable refused CTA overnight. Physical Exam Vital Signs: Vital Signs: Last Vital Signs Temp 97.9 F 11/14/23 10:38 Pulse 87 11/14/23 10:38 Resp 20 11/14/23 10:38 BP 105/62 11/14/23 10:38 Pulse Ox 98 11/14/23 10:38 O2 Del Method Nasal Cannula 11/14/23 10:38 O2 Flow Rate 2 11/14/23 10:38 BMI result Body Mass Index 26.3 Const: Other: General: AO X 3, no acute distress Resp: CTA bilateral CVS: S1,S2,RRR GI: +BS, NT, no distention Skin: No rash, scabs on leg, MSK: pain in right hip with movement, no redness or swelling in the hip Neuro: motor grossly intact Psych: appropriate affect Objective Data Active Medications Acetaminophen (Acetaminophen 325 Mg Tablet) 975 mg PO Q6H PRN PRN Reason: Pain, Mild (Pain Scale 1-3), fever or headache Amlodipine Besylate (Amlodipine Besylate 5 Mg Tablet) 5 mg PO DAILY [facility]; Protocol Last Admin: 11/14/23 07:44 Dose: 5 mg Documented By: KELSEA Calcium Carbonate (Calcium Carbonate 750 Mg Tab.Chew) 750 mg PO Q4H PRN PRN Reason: Heartburn Enoxaparin Sodium (Enoxaparin Sodium 40 Mg/0.4 Ml Syringe) 60 mg SUBCUT Q12H [facility] Last Admin: 11/14/23 07:43 Dose: 60 mg Documented By: KELSEA Hydromorphone HCl (Hydromorphone Hcl 2 Mg Tablet) 2 mg PO Q4H PRN PRN Reason: Pain, Moderate(Pain Scale 4-6) Last Admin: 11/14/23 10:31 Dose: 2 mg Documented By: KELSEA Hydroxyzine HCl (Hydroxyzine Hcl 25 Mg Tablet) 25 mg PO Q8H PRN PRN Reason: anxiety/restlessness Last Admin: 11/13/23 08:10 Dose: 25 mg Documented By: KELSEA Lactated Ringer's (Lr) 1,000 mls @ 150 mls/hr IVCONT .Q6H40M [facility] Last Admin: 11/14/23 10:28 Dose: 150 mls/hr Documented By: KELSEA Ceftriaxone Sodium 2 gm/ (Sodium Chloride) 50 mls @ 100 mls/hr IV Q12H [facility] Last Infusion: 11/14/23 06:08 Dose: Infused Documented By: MONIK Clindamycin Phosphate (Cleocin) 900 mg in 50 mls @ 50 mls/hr IV Q8H [facility] Last Admin: 11/14/23 12:58 Dose: 50 mls/hr Documented By: KELSEA Lisinopril (Lisinopril 10 Mg Tablet) 10 mg PO DAILY [facility]; Protocol Last Admin: 11/14/23 07:44 Dose: 10 mg Documented By: KELSEA Magnesium Hydroxide (Milk Of Magnesia 30 Ml Oral.Susp) 30 ml PO DAILY PRN PRN Reason: Constipation Melatonin (Melatonin 3 Mg Tablet) 6 mg PO BEDTIME PRN PRN Reason: Insomnia Methadone HCl (Methadone Hcl 20 Mg/2 Ml Oral.Conc) 50 mg PO DAILY [facility] Last Admin: 11/14/23 07:46 Dose: 50 mg Documented By: KELSEA Morphine Sulfate (Morphine Sulfate 4 Mg/Ml Cartridge) 4 mg IVPUSH Q4H PRN; Protocol PRN Reason: Pain, Severe (Pain Scale 7-10) Last Admin: 11/14/23 11:58 Dose: 4 mg Documented By: VINOD Nicotine (Nicotine 21 Mg Patch.Td24) 21 mg TRANSDERMA DAILY [facility] Last Admin: 11/14/23 07:44 Dose: 21 mg Documented By: KELSEA Ondansetron HCl (Ondansetron Hcl 4 Mg/2 Ml Vial) 4 mg IVPUSH Q8H PRN PRN Reason: Nausea and Vomiting Pantoprazole Sodium (Pantoprazole Sodium 40 Mg/10 Ml Vial) 40 mg IVPUSH DAILY@0630 [facility] Last Admin: 11/14/23 05:49 Dose: 40 mg Documented By: MONIK Sodium Chloride (0.9 % Sodium Chloride Flush 3 Ml Syringe) 3 ml IVFLUSH QSHIFT [facility] Last Admin: 11/14/23 07:46 Dose: Not Given Documented By: KELSEA Non-Admin Reason: IV Running Labs 11/14/23 05:35 11/14/23 05:35 Labs: Laboratory Results - last 24 hr 11/12/23 11/13/23 11/14/23 04:28 14:42 05:35 MCV 69.9 L MCH 23.0 L MCHC 32.8 RDW 15.8 Plt Count 391 MPV 10.4 Absolute Nucleated RBC 0.000 Nucleated RBC % (auto) 0.0 Anion Gap 15 15 Estim Creat Clear Calc 112.5 Estimated GFR > 60 Random Glucose 87 Calcium 8.7 Magnesium 1.7 DHEA Sulfate 204 Microbiology Microbiology Results: Microbiology 11/13/23 06:13 Blood Culture - Preliminary Blood - Venous No growth after 24 hours. 11/13/23 06:11 Blood Culture - Preliminary Blood - Venous No growth after 24 hours. 11/12/23 21:53 Blood Culture - Preliminary Blood - Venous No growth after 24 hours. 11/12/23 21:53 Blood Culture - Preliminary Blood - Venous No growth after 24 hours. 11/11/23 23:48 Blood Culture - Final Blood - Venous Streptococcus pyogenes (Grp A) 11/11/23 23:48 Blood Culture - Final Blood - Venous Streptococcus pyogenes (Grp A) Assessment and Plan (1) IVDU (intravenous drug user): Status: Acute (2) Fever: Status: Acute (3) Acute deep vein thrombosis (DVT) of right lower extremity: Status: Acute Plan 48-year-old female with pertinent history of tobacco use disorder, IV polysubstance use disorder who was brought to the emergency department [place] and screaming for help, complaining of leg pain. Acute DVT of right lower extremity, no particular triger -continue Lovenox.. -CTA ordered refused yesterday but will to go later today - Dr. Ivan Rucker, [facility] vascular surgery consulted>> no surgical intervention warranted -hematology consult for unprovoked DVT and adrenal mass, recommendation noted.. Change to Eliquis when feasible Sepsis d/t gram postive cocci bacteremia in chain, final culture - strep Pyogenese.. Sepsis resolved, WBC now normal -Ceftriaxone dose increased to 2 grams on 11/12/22 and Clindamycin 600 q8 for 2 days added per ID recommendation. -repeat blood culture 11/12/ so far negative. Echo no endocarditis. Elevated BP possibly untreated HTN vs pain, started on lisinopril and norvasc, BP has come down significantly, tachycardia resolved. Consider holding meds -Right adrenal nodule: >4cm and >10 HU. Obtaining DHEA-S, plasma metanephrine, PAC, renin aldosterone to rule out hormonal hypersecretion - may need further imaging.. Onc consult = consider repeat imaging at later time and outpatient work up Microcytic anemia: Likely chronic, above transfusion threshold Hypokalemia--replaced and now normal Right hip pain and severe arthritis and OA with effusion, Ortho consult advises joint aspirate Polysubstance IV drug use disorder: UDS positive for cocaine, fentanyl and opiates. Monitor for withdrawal refused clonidine, hydroxyzine and methadone per addiction med Homelessness: Case management follow up Tobacco use disorder: Nicotine patch while in the hospital. Counseled regarding cessation DVT prophylaxis: Lovenox Full code inpt for IV abx for sepsis/bacteremia Quality Stroke Does the patient have a stroke diagnosis?: No VTE Prior VTE?: No VTE Risk Level:: Medical - moderate - high VTE Device Contraindication: Treatment Not Indicated VTE Drug Contraindication: N/A - Med Ordered
--- NOTE | 2023-11-14 14:40 | PM.PROC ---
Brief Operative Note Date of procedure: 11/14/23 Pre-op diagnosis: Bacteremia, right hip pain Post-op diagnosis: same Procedure: FL right hip aspiration. No fluid could be aspirated. Arthrogram performed demonstrating intraarticular position of needle. Anesthesia: local
--- NOTE | 2023-11-14 14:49 | P.PNADD_ITS ---
Subjective Subjective Date of Service: 11/14/23 Reason For Visit: leg pain Interim History: Patient seen in follow up X2 today 1st visit in AM, patient very sleepy and unable to participate in interview. Follow up eval in afternoon, patient more awake, alert Reporting that she does wish to remain on methadone at discharge Feels comfortable at current dose Review of Systems Acute medical concerns: Yes Medical Review of Systems: unchanged Mental Status Exam Mental Status Exam Patient Appearance: Appropriate Level of Consciousness: Awake and Appropriate Diagnostics Vital Signs (24Hr): Vital Signs - 24 hr 11/13/23 16:00 11/13/23 19:12 11/13/23 19:18 Temperature 101.8 F H 103.4 F H Pulse Rate 113 H 117 H Respiratory Rate 18 38 H 24 H Blood Pressure 140/71 H 140/74 H Pulse Oximetry 94 93 Oxygen Delivery Method Room Air Room Air Oxygen Flow Rate 11/13/23 21:41 11/13/23 23:05 11/14/23 03:30 Temperature 100.9 F H 98.8 F 102.5 F H Pulse Rate 99 111 H Respiratory Rate 26 H 26 H Blood Pressure 136/70 164/81 H Pulse Oximetry 92 89 L Oxygen Delivery Method Room Air Room Air Oxygen Flow Rate 11/14/23 06:26 11/14/23 07:17 11/14/23 07:30 Temperature 100.0 F 96.8 F 99.1 F Pulse Rate 95 Respiratory Rate 20 Blood Pressure 134/77 Pulse Oximetry 97 99 Oxygen Delivery Method Room Air Nasal Cannula Oxygen Flow Rate 2 11/14/23 08:49 11/14/23 10:38 Temperature 98.4 F 97.9 F Pulse Rate 76 87 Respiratory Rate 20 20 Blood Pressure 123/72 105/62 Pulse Oximetry 100 98 Oxygen Delivery Method Nasal Cannula Nasal Cannula Oxygen Flow Rate 2 2 BMI result Body Mass Index 26.3 Labs 11/14/23 05:35 11/14/23 05:35 Labs: Laboratory Results - last 48 hr 11/12/23 11/12/23 11/13/23 04:28 21:53 06:11 WBC 15.0 H RBC 3.95 L Hgb 8.9 L Hct 27.8 L MCV 70.4 L MCH 22.5 L MCHC 32.0 RDW 15.6 Plt Count 410 H MPV 9.9 Absolute Nucleated RBC 0.000 Nucleated RBC % (auto) 0.0 PT 15.7 H INR 1.3 H Sodium 140 Potassium 2.4 L* D Chloride 99 Carbon Dioxide 29 Anion Gap 14 BUN 6 L Creatinine 0.61 Estim Creat Clear Calc 110.7 Estimated GFR > 60 Random Glucose 87 Lactic Acid 0.8 Calcium 8.7 Magnesium 1.8 DHEA Sulfate 204 Hold Yellow Top See Note Random Vancomycin 11/13/23 11/13/23 11/14/23 11:20 14:42 05:35 WBC 10.8 RBC 3.79 L Hgb 8.7 L Hct 26.5 L MCV 69.9 L MCH 23.0 L MCHC 32.8 RDW 15.8 Plt Count 391 MPV 10.4 Absolute Nucleated RBC 0.000 Nucleated RBC % (auto) 0.0 PT INR Sodium 135 133 L Potassium 3.4 D 4.3 D Chloride 99 99 Carbon Dioxide 24 23 Anion Gap 15 15 BUN 8 L Creatinine 0.60 Estim Creat Clear Calc 112.5 Estimated GFR > 60 Random Glucose 87 Lactic Acid Calcium 8.7 Magnesium 1.7 DHEA Sulfate Hold Yellow Top Random Vancomycin 7.4 L Imaging Radiology Impressions: ITS Impressions Venous Duplex 11/11/23 20:51 IMPRESSION: Acute DVT of the right mid femoral, distal femoral, popliteal, peroneal, and posterior tibial veins. This critical test result was discussed with Dr. Huitron at 9:22 PM on 11/11/[address] eJrel Paul at the time of discovery. It was ascertained that the content and the importance of the findings was understood at the time of the direct communication. Hip CT 11/11/23 22:46 IMPRESSION: 1. Severe right hip osteoarthritis with a small joint effusion. 2. No acute fracture or dislocation. No evidence of avascular necrosis. Chest CT 11/11/23 22:54 IMPRESSION: 1. Soft tissue nodule within the medial aspect of the right upper lobe measuring 0.4 x 0.7 cm, for an average of 0.55 cm. Right minor fissure subpleural nodule measuring 0.2 cm. Minimal linear bibasilar atelectasis. Subpleural bleb within the left upper lobe measuring up to 2.5 cm. According to the UPDATED 2017 Fleischner Society recommendations, the advised follow-up imaging for nodules <6mm in the upper lobes is not necessarily required in low-risk patients. In high-risk patients with a nodule in the upper lobe and/or demonstrating suspicious morphology, an optional CT follow-up at 12 months may be obtained. If stable at 12 months, no further follow-up is recommended. 2. Partially visualized right adrenal nodule measuring 4.3 x 2.0 cm in greatest axial dimension, with Hounsfield units measuring 14.4. Given the size greater than 4 cm and Hounsfield units greater than 10, findings could indicate possible malignancy. Surgical consultation is recommended. Consider biochemical lab evaluation for functional status and pheochromocytoma prior to resection. 3. Prominent degenerative disc disease at T6-T7. Fleischner guidelines were followed. Head CT 11/12/23 03:15 IMPRESSION: 1. No acute intracranial process seen. 2. Bilateral maxillary sinus mucosal thickening/opacities. Chest CTA 11/14/23 13:02 IMPRESSION: 1. No pulmonary emboli. 2. Redemonstration of multiple pulmonary nodules the largest measuring up to 5 mm. No new enlarged or suspicious pulmonary nodules or masses are noted. 3. Left basilar consolidative focus potentially representing atelectasis though underlying infectious/inflammatory etiology not excluded. 4. Spleen is enlarged measuring 14.9 cm. 5. Decreased hepatic attenuation suggesting hepatic steatosis. Medications Medications Current Medications Acetaminophen (Acetaminophen 325 Mg Tablet) 975 mg PO Q6H PRN PRN Reason: Pain, Mild (Pain Scale 1-3), fever or headache Amlodipine Besylate (Amlodipine Besylate 5 Mg Tablet) 5 mg PO DAILY [facility]; Protocol Last Admin: 11/14/23 07:44 Dose: 5 mg Calcium Carbonate (Calcium Carbonate 750 Mg Tab.Chew) 750 mg PO Q4H PRN PRN Reason: Heartburn Enoxaparin Sodium (Enoxaparin Sodium 40 Mg/0.4 Ml Syringe) 60 mg SUBCUT Q12H [facility] Last Admin: 11/14/23 07:43 Dose: 60 mg Hydromorphone HCl (Hydromorphone Hcl 2 Mg Tablet) 2 mg PO Q4H PRN PRN Reason: Pain, Moderate(Pain Scale 4-6) Last Admin: 11/14/23 10:31 Dose: 2 mg Hydroxyzine HCl (Hydroxyzine Hcl 25 Mg Tablet) 25 mg PO Q8H PRN PRN Reason: anxiety/restlessness Last Admin: 11/13/23 08:10 Dose: 25 mg Lactated Ringer's (Lr) 1,000 mls @ 150 mls/hr IVCONT .Q6H40M [facility] Last Admin: 11/14/23 10:28 Dose: 150 mls/hr Ceftriaxone Sodium 2 gm/ (Sodium Chloride) 50 mls @ 100 mls/hr IV Q12H [facility] Last Infusion: 11/14/23 06:08 Dose: Infused Clindamycin Phosphate (Cleocin) 900 mg in 50 mls @ 50 mls/hr IV Q8H [facility] Last Admin: 11/14/23 12:58 Dose: 50 mls/hr Lisinopril (Lisinopril 10 Mg Tablet) 10 mg PO DAILY [facility]; Protocol Last Admin: 11/14/23 07:44 Dose: 10 mg Magnesium Hydroxide (Milk Of Magnesia 30 Ml Oral.Susp) 30 ml PO DAILY PRN PRN Reason: Constipation Melatonin (Melatonin 3 Mg Tablet) 6 mg PO BEDTIME PRN PRN Reason: Insomnia Methadone HCl (Methadone Hcl 20 Mg/2 Ml Oral.Conc) 50 mg PO DAILY [facility] Last Admin: 11/14/23 07:46 Dose: 50 mg Morphine Sulfate (Morphine Sulfate 4 Mg/Ml Cartridge) 4 mg IVPUSH Q4H PRN; Protocol PRN Reason: Pain, Severe (Pain Scale 7-10) Last Admin: 11/14/23 11:58 Dose: 4 mg Nicotine (Nicotine 21 Mg Patch.Td24) 21 mg TRANSDERMA DAILY [facility] Last Admin: 11/14/23 07:44 Dose: 21 mg Ondansetron HCl (Ondansetron Hcl 4 Mg/2 Ml Vial) 4 mg IVPUSH Q8H PRN PRN Reason: Nausea and Vomiting Pantoprazole Sodium (Pantoprazole Sodium 40 Mg/10 Ml Vial) 40 mg IVPUSH DAILY@0630 [facility] Last Admin: 11/14/23 05:49 Dose: 40 mg Sodium Chloride (0.9 % Sodium Chloride Flush 3 Ml Syringe) 3 ml IVFLUSH QSHIFT [facility] Last Admin: 11/14/23 07:46 Dose: Not Given Allergies Allergies Allergy/AdvReac Type Severity Reaction Status Date / Time clindamycin Allergy Unknown Verified 11/11/23 19:26 Penicillins Allergy Unknown Verified 11/11/23 19:26 Assessment & Plan Assessment & Plan (1) Opioid use disorder: Status: Acute Code(s): F11.90 - Opioid use, unspecified, uncomplicated Assessment and Plan: * continue methadone at 50mg daily * will continue to follow and titrate dose as needed Total time managing care of this patient today _35___ minutes.
[2023-11-14] MEDS: Acetaminophen 325 MG TABLET 975 MG PO (18:29)
[2023-11-14 19:34] LABS: Alanine Aminotransferase 25 U/L (0-31); Albumin Level 2.3 g/dL (3.5-5.0); Alkaline Phosphatase 60 U/L (39-117); Aspartate Amino Transferase 61 U/L (5-31); Bilirubin Direct 0.1 mg/dL (0.0-0.5); Bilirubin Total 0.4 mg/dL (0.0-1.0); Total Protein 7.2 g/dL (6.5-8.0)
[2023-11-14] MEDS: hydrOXYzine HCL 25 MG TABLET PO (20:31)
[2023-11-15] VITALS (9 sets, daily range): BP systolic 99–142; BP diastolic 58–75; PULSE 90–107; RESP 17–19; TEMP 36.3–37.7; O2SAT 93–98
[2023-11-15] MEDS: HYDROmorphone HCl 2 MG TABLET PO ×6 (00:03→22:26)
[2023-11-15] MEDS: Acetaminophen 325 MG TABLET 975 MG PO ×2 (00:03→20:12)
[2023-11-15] MEDS: Melatonin 3 MG TABLET 6 MG PO ×2 (00:04→20:15)
[2023-11-15] MEDS: 0.9 % Sodium Chloride Flush 3 ML SYRINGE IVFLUSH ×2 (00:05→20:26)
[2023-11-15] MEDS: Morphine Sulfate 4 MG/ML CARTRIDGE IVPUSH ×6 (00:38→21:17)
[2023-11-15] MEDS: Clindamycin Phosphate/D5W 900 MG/50 ML PIGGYBACK 50 MG IV ×3 (04:11→20:25)
[2023-11-15] MEDS: cefTRIAXone sodium 2 GM in 0.9 % Sodium Chloride 50 ML IV ×2 (05:36→17:30)
[2023-11-15] MEDS: Pantoprazole Sodium 40 MG/10 ML VIAL IVPUSH (05:36)
[2023-11-15 06:37] LABS: Hematocrit 25.5 % (37.0-47.0); Mean Corpuscular HGB Conc 31.4 g/dl (31.0-35.0); Mean Corpuscular Hemoglobin 22.4 pg (27.0-33.0); Mean Corpuscular Volume 71.4 fL (80.0-98.0); Mean Platelet Volume 10.6 fL (9.4-12.3); Platelet Count 294 X10*3/uL (160-400); Red Blood Count 3.57 X10*6/uL (4.20-5.50); Red Cell Distribution Width 16.5 % (11.0-16.0); White Blood Count 7.6 X10*3/uL (4.8-10.8)
--- NOTE | 2023-11-15 07:53 | PM.PNORT ---
Subjective Subjective Date of Service: 11/15/23 Interval history: Patient resting in bed comfortably Falling asleep during conversation Continues to c/o RT hip pain - no change No additional conmplaints Physical Exam Vital Signs: Vital Signs: Last Vital Signs Temp 97.4 F 11/15/23 07:02 Pulse 94 11/15/23 07:02 Resp 17 11/15/23 07:02 BP 128/65 11/15/23 07:02 Pulse Ox 98 11/15/23 07:02 O2 Del Method Nasal Cannula 11/15/23 07:02 O2 Flow Rate 2 11/15/23 07:02 BMI result Body Mass Index 26.3 Const: General: cooperative and awake Extrem: Other: Right hip normal to inspection Pain with passive ROM of the hip and with passive flexion of the HIP Procedures Date of Service Date of Service: 11/15/23 Progress Note: A&P Assessment and plan (1) Osteoarthritis of right hip: Status: Acute Plan IR aspiration unsuccessful CT Scan suggestive of O/A No indication of septic joint at this time No additional orthopedic intervention warrented at this time Time Spent With Patient Time: Total time managing care of this patient today ____ minutes. Quality Stroke Does the patient have a stroke diagnosis?: No VTE Prior VTE?: No VTE Risk Level:: Medical - moderate - high VTE Device Contraindication: Treatment Not Indicated VTE Drug Contraindication: N/A - Med Ordered
[2023-11-15] MEDS: amLODIPine Besylate 5 MG TABLET PO (09:13)
[2023-11-15] MEDS: lisinopriL 10 MG TABLET PO (09:13)
[2023-11-15] MEDS: methADONE HCl 20 MG/2 ML ORAL.CONC 50 MG PO (09:14)
[2023-11-15] MEDS: Enoxaparin Sodium 40 MG/0.4 ML SYRINGE 60 MG SUBCUT ×2 (09:14→20:14)
--- NOTE | 2023-11-15 10:17 | HO.PM.IMPN ---
Subjective Subjective Date of Service: 11/15/23 Interval History: pt seen and examined Still c/o hip pain, but overall better. No fever, vital all normal. Unsuccessful attempt R joint aspirate Physical Exam Vital Signs: Vital Signs: Last Vital Signs Temp 97.4 F 11/15/23 07:02 Pulse 94 11/15/23 07:02 Resp 17 11/15/23 07:02 BP 128/65 11/15/23 07:02 Pulse Ox 98 11/15/23 07:02 O2 Del Method Nasal Cannula 11/15/23 07:02 O2 Flow Rate 2 11/15/23 07:02 BMI result Body Mass Index 26.3 Const: Other: General: AO X 3, no acute distress HEENT: very poor dention Resp: CTA bilateral CVS: S1,S2,RRR GI: +BS, NT, no distention Skin: No rash, scabs on leg, MSK: pain in right hip with movement, no redness or swelling in the hip Neuro: motor grossly intact Psych: appropriate affect Objective Data Active Medications Acetaminophen (Acetaminophen 325 Mg Tablet) 975 mg PO Q6H PRN PRN Reason: Pain, Mild (Pain Scale 1-3), fever or headache Last Admin: 11/15/23 00:03 Dose: 975 mg Documented By: BARBIE Amlodipine Besylate (Amlodipine Besylate 5 Mg Tablet) 5 mg PO DAILY [facility]; Protocol Last Admin: 11/15/23 09:13 Dose: 5 mg Documented By: RYLIE Calcium Carbonate (Calcium Carbonate 750 Mg Tab.Chew) 750 mg PO Q4H PRN PRN Reason: Heartburn Enoxaparin Sodium (Enoxaparin Sodium 40 Mg/0.4 Ml Syringe) 60 mg SUBCUT Q12H [facility] Last Admin: 11/15/23 09:14 Dose: 60 mg Documented By: RYLIE Hydromorphone HCl (Hydromorphone Hcl 2 Mg Tablet) 2 mg PO Q4H PRN PRN Reason: Pain, Moderate(Pain Scale 4-6) Last Admin: 11/15/23 09:49 Dose: 2 mg Documented By: RYLIE Hydroxyzine HCl (Hydroxyzine Hcl 25 Mg Tablet) 25 mg PO Q8H PRN PRN Reason: anxiety/restlessness Last Admin: 11/14/23 20:31 Dose: 25 mg Documented By: MAIDA Lactated Ringer's (Lr) 1,000 mls @ 100 mls/hr IVCONT .Q10H [facility] Last Admin: 11/15/23 05:30 Dose: Not Given Documented By: BARBIE Non-Admin Reason: IV Running Ceftriaxone Sodium 2 gm/ (Sodium Chloride) 50 mls @ 100 mls/hr IV Q12H [facility] Last Infusion: 11/15/23 06:24 Dose: Infused Documented By: BARBIE Clindamycin Phosphate (Cleocin) 900 mg in 50 mls @ 50 mls/hr IV Q8H [facility] Last Infusion: 11/15/23 05:39 Dose: Infused Documented By: BARBIE Lisinopril (Lisinopril 10 Mg Tablet) 10 mg PO DAILY [facility]; Protocol Last Admin: 11/15/23 09:13 Dose: 10 mg Documented By: RYLIE Magnesium Hydroxide (Milk Of Magnesia 30 Ml Oral.Susp) 30 ml PO DAILY PRN PRN Reason: Constipation Melatonin (Melatonin 3 Mg Tablet) 6 mg PO BEDTIME PRN PRN Reason: Insomnia Last Admin: 11/15/23 00:04 Dose: 6 mg Documented By: BARBIE Methadone HCl (Methadone Hcl 20 Mg/2 Ml Oral.Conc) 50 mg PO DAILY [facility] Last Admin: 11/15/23 09:14 Dose: 50 mg Documented By: RYLIE Morphine Sulfate (Morphine Sulfate 4 Mg/Ml Cartridge) 4 mg IVPUSH Q4H PRN; Protocol PRN Reason: Pain, Severe (Pain Scale 7-10) Last Admin: 11/15/23 09:14 Dose: 4 mg Documented By: RYLIE Nicotine (Nicotine 21 Mg Patch.Td24) 21 mg TRANSDERMA DAILY [facility] Last Admin: 11/15/23 09:27 Dose: Not Given Documented By: RYLIE Non-Admin Reason: Patient Refused Ondansetron HCl (Ondansetron Hcl 4 Mg/2 Ml Vial) 4 mg IVPUSH Q8H PRN PRN Reason: Nausea and Vomiting Pantoprazole Sodium (Pantoprazole Sodium 40 Mg/10 Ml Vial) 40 mg IVPUSH DAILY@0630 [facility] Last Admin: 11/15/23 05:36 Dose: 40 mg Documented By: BARBIE Sodium Chloride (0.9 % Sodium Chloride Flush 3 Ml Syringe) 3 ml IVFLUSH QSHIFT SHAHEED Last Admin: 11/15/23 09:27 Dose: Not Given Documented By: RYLIE Non-Admin Reason: IV Running Labs 11/15/23 06:00 11/14/23 05:35 Labs: Laboratory Results - last 24 hr 11/14/23 11/15/23 05:35 06:00 MCV 71.4 L MCH 22.4 L MCHC 31.4 RDW 16.5 H Plt Count 294 MPV 10.6 Absolute Nucleated RBC 0.000 Nucleated RBC % (auto) 0.0 Total Bilirubin 0.4 Direct Bilirubin 0.1 AST 61 H ALT 25 Alkaline Phosphatase 60 Total Protein 7.2 Albumin 2.3 L Microbiology Microbiology Results: Microbiology 11/13/23 06:13 Blood Culture - Preliminary Blood - Venous No growth after 48 hours. 11/13/23 06:11 Blood Culture - Preliminary Blood - Venous No growth after 48 hours. 11/12/23 21:53 Blood Culture - Preliminary Blood - Venous No growth after 48 hours. 11/12/23 21:53 Blood Culture - Preliminary Blood - Venous No growth after 48 hours. Assessment and Plan (1) IVDU (intravenous drug user): Status: Acute (2) Fever: Status: Acute (3) Acute deep vein thrombosis (DVT) of right lower extremity: Status: Acute Plan 48-year-old female with pertinent history of tobacco use disorder, IV polysubstance use disorder who was brought to the emergency department after she [place] near the train track and screaming for help, complaining of leg pain. Acute DVT of right lower extremity, no particular triger -continue Lovenox and transition to Eliquis -CTA 11/13, no PE - Dr. Ivan Rucker, [facility] vascular surgery [facility] consulted>> no surgical intervention warranted -hematology consult for unprovoked DVT and adrenal mass, recommendation noted.. Change to Eliquis when feasible Sepsis d/t - strep Pyogenese.. Sepsis resolved, WBC now normal, repeat culture 11/11 and 11/12 negative 48 hrs. -Initially was on Vanco and Ceftraixone, later changed to Ceftriaxone 2 gram/daily and 2 days of Clindamycin 600 q8 per ID recommendation. At Discharge: PO Ceftin 500 mg bid for toal of 10 days (counting days of Ceftri Echo no endocarditis. Elevated BP likely unreated HTN, BP is within normal. -Started on Norvasc and Lisinopril, continue -Right adrenal nodule: >4cm and >10 HU. Obtaining DHEA-S, plasma metanephrine, PAC, renin aldosterone to rule out hormonal hypersecretion - may need further imaging.. Onc consult = consider repeat imaging at later time and outpatient work up Microcytic anemia: Likely chronic, above transfusion threshold Hypokalemia--replaced and now normal Right hip pain and OA with effusion, Ortho consult advises joint aspirate, IR attempted aspirate on 11/13, nothing came out Polysubstance IV drug use disorder: UDS positive for cocaine, fentanyl and opiates. Monitor for withdrawal refused clonidine, hydroxyzine and methadone per addiction med Homelessness: Case management follow up Tobacco use disorder: Nicotine patch while in the hospital. Counseled regarding cessation DVT prophylaxis: Lovenox Full code inpt for IV abx for sepsis/bacteremia PT eval Quality Stroke Does the patient have a stroke diagnosis?: No VTE Prior VTE?: No VTE Risk Level:: Medical - moderate - high VTE Device Contraindication: Treatment Not Indicated VTE Drug Contraindication: N/A - Med Ordered
[2023-11-15] MEDS: Lactated Ringers 1,000 ML 100 ML IVCONT ×2 (12:06→22:27)
--- NOTE | 2023-11-15 13:08 | MHC.CM.PN ---
per rounds, pt is not yet ready for DC. She is receiving IV ABX, and is not walking at this time. PT eval to help determine DCP.
--- NOTE | 2023-11-15 15:39 | MHC.RECOVRN ---
Met with pt to follow up, provide support, assess for opioid withdrawal. Pt sitting in bed, awake, alert, engages in conversation, somewhat irritable. Pt appears diaphoretic and uncomfortable. Pt reports withdrawal symptoms including stomach cramps and feeling hot/cold. Pt would like to continue methadone titration. Denies other questions or concerns for t/w. Discussed with Dhara Rivas APRN.
[2023-11-15] MEDS: methADONE HCl 20 MG/2 ML ORAL.CONC 10 MG PO (17:17)
[2023-11-16] VITALS (7 sets, daily range): BP systolic 107–140; BP diastolic 59–84; PULSE 81–90; RESP 16–20; TEMP 36–37.3; O2SAT 94–98
[2023-11-16] MEDS: HYDROmorphone HCl 2 MG/ML VIAL 1.5 MG IVPUSH (04:11)
[2023-11-16] MEDS: Clindamycin Phosphate/D5W 900 MG/50 ML PIGGYBACK 50 MG IV (04:12)
[2023-11-16] MEDS: Morphine Sulfate 4 MG/ML CARTRIDGE IVPUSH ×4 (06:04→18:18)
[2023-11-16] MEDS: Pantoprazole Sodium 40 MG/10 ML VIAL IVPUSH (06:04)
[2023-11-16] MEDS: cefTRIAXone sodium 2 GM in 0.9 % Sodium Chloride 50 ML IV ×2 (06:13→17:03)
[2023-11-16] MEDS: Enoxaparin Sodium 40 MG/0.4 ML SYRINGE 60 MG SUBCUT (07:52)
[2023-11-16] MEDS: methADONE HCl 20 MG/2 ML ORAL.CONC 65 MG PO (07:53)
[2023-11-16] MEDS: lisinopriL 10 MG TABLET PO (07:54)
[2023-11-16] MEDS: amLODIPine Besylate 5 MG TABLET PO (07:54)
[2023-11-16] MEDS: 0.9 % Sodium Chloride Flush 3 ML SYRINGE IVFLUSH ×3 (07:56→20:09)
--- NOTE | 2023-11-16 11:13 | P.PNADD_ITS ---
Subjective Subjective Date of Service: 11/16/23 Reason For Visit: leg pain Interim History: Patient seen in follow up Methadone dose up to 65mg this morning Patient appearing comfortable, awake, mostly alert, irritable affect. No restlessness, diaphoresis noted. Denies n/v Continues to c/o pain everywhere . Requesting to continue titrating methadone dose. Review of Systems Acute medical concerns: Yes Medical Review of Systems: unchanged Mental Status Exam Mental Status Exam Level of Consciousness: Awake and Appropriate Patient Behavior: Appropriate Affect Description: Constricted Speech Pattern: Garbled Diagnostics Vital Signs (24Hr): Vital Signs - 24 hr 11/15/23 15:13 11/15/23 20:00 11/16/23 00:00 Temperature 99.9 F 98.4 F 97.7 F Pulse Rate 98 100 81 Respiratory Rate 17 18 20 Blood Pressure 123/66 127/66 133/82 Pulse Oximetry 95 94 96 Oxygen Delivery Method Nasal Cannula Nasal Cannula Nasal Cannula Oxygen Flow Rate 2 2 2 11/16/23 03:46 11/16/23 07:12 11/16/23 10:51 Temperature 96.9 F 98.3 F 98.1 F Pulse Rate 87 90 86 Respiratory Rate 20 20 20 Blood Pressure 140/84 H 123/68 107/59 L Pulse Oximetry 95 94 95 Oxygen Delivery Method Nasal Cannula Nasal Cannula Nasal Cannula Oxygen Flow Rate 2 2 2 BMI result Body Mass Index 26.3 Labs 11/15/23 06:00 11/14/23 05:35 Labs: Laboratory Results - last 48 hr 11/14/23 11/15/23 11/16/23 05:35 06:00 05:45 WBC 7.6 RBC 3.57 L Hgb 8.0 L Hct 25.5 L MCV 71.4 L MCH 22.4 L MCHC 31.4 RDW 16.5 H Plt Count 294 MPV 10.6 Absolute Nucleated RBC 0.000 Nucleated RBC % (auto) 0.0 Sodium Cancelled Potassium Cancelled Chloride Cancelled Carbon Dioxide Cancelled Anion Gap Cancelled BUN Cancelled Creatinine Cancelled Estim Creat Clear Calc Cancelled Estimated GFR Cancelled Random Glucose Cancelled Calcium Cancelled Total Bilirubin 0.4 Direct Bilirubin 0.1 AST 61 H ALT 25 Alkaline Phosphatase 60 Total Protein 7.2 Albumin 2.3 L Imaging Radiology Impressions: ITS Impressions Venous Duplex 11/11/23 20:51 IMPRESSION: Acute DVT of the right mid femoral, distal femoral, popliteal, peroneal, and posterior tibial veins. This critical test result was discussed with Dr. Huitron at 9:22 PM on 11/11/[address] Jerel Paul at the time of discovery. It was ascertained that the content and the importance of the findings was understood at the time of the direct communication. Hip CT 11/11/23 22:46 IMPRESSION: 1. Severe right hip osteoarthritis with a small joint effusion. 2. No acute fracture or dislocation. No evidence of avascular necrosis. Chest CT 11/11/23 22:54 IMPRESSION: 1. Soft tissue nodule within the medial aspect of the right upper lobe measuring 0.4 x 0.7 cm, for an average of 0.55 cm. Right minor fissure subpleural nodule measuring 0.2 cm. Minimal linear bibasilar atelectasis. Subpleural bleb within the left upper lobe measuring up to 2.5 cm. According to the UPDATED 2017 Fleischner Society recommendations, the advised follow-up imaging for nodules <6mm in the upper lobes is not necessarily required in low-risk patients. In high-risk patients with a nodule in the upper lobe and/or demonstrating suspicious morphology, an optional CT follow-up at 12 months may be obtained. If stable at 12 months, no further follow-up is recommended. 2. Partially visualized right adrenal nodule measuring 4.3 x 2.0 cm in greatest axial dimension, with Hounsfield units measuring 14.4. Given the size greater than 4 cm and Hounsfield units greater than 10, findings could indicate possible malignancy. Surgical consultation is recommended. Consider biochemical lab evaluation for functional status and pheochromocytoma prior to resection. 3. Prominent degenerative disc disease at T6-T7. Fleischner guidelines were followed. Head CT 11/12/23 03:15 IMPRESSION: 1. No acute intracranial process seen. 2. Bilateral maxillary sinus mucosal thickening/opacities. Hip/Pelvis X-Ray 11/14/23 12:21 IMPRESSION: Severe osteoarthritis of the right hip joint. Chest CTA 11/14/23 13:02 IMPRESSION: 1. No pulmonary emboli. 2. Redemonstration of multiple pulmonary nodules the largest measuring up to 5 mm. No new enlarged or suspicious pulmonary nodules or masses are noted. 3. Left basilar consolidative focus potentially representing atelectasis though underlying infectious/inflammatory etiology not excluded. 4. Spleen is enlarged measuring 14.9 cm. 5. Decreased hepatic attenuation suggesting hepatic steatosis. Joint Aspiration/Injection 11/14/23 14:52 Impression: Fluoroscopic right hip aspiration yielding no fluid. The procedure was performed by Solo Santiago PA-C, and directly supervised by Dr. Ruiz. Medications Medications Current Medications Acetaminophen (Acetaminophen 325 Mg Tablet) 975 mg PO TIDWM [facility] Amlodipine Besylate (Amlodipine Besylate 5 Mg Tablet) 5 mg PO DAILY [facility]; Protocol Last Admin: 11/16/23 07:54 Dose: 5 mg Apixaban (Apixaban 5 Mg Tablet) 10 mg PO BID [facility] Stop: 11/22/23 21:01 Last Admin: 11/16/23 08:35 Dose: Not Given Calcium Carbonate (Calcium Carbonate 750 Mg Tab.Chew) 750 mg PO Q4H PRN PRN Reason: Heartburn Doxycycline Monohydrate (Doxycycline Monohydrate 100 Mg Capsule) 100 mg PO BID [facility] Hydroxyzine HCl (Hydroxyzine Hcl 25 Mg Tablet) 25 mg PO Q8H PRN PRN Reason: anxiety/restlessness Last Admin: 11/14/23 20:31 Dose: 25 mg Ceftriaxone Sodium 2 gm/ (Sodium Chloride) 50 mls @ 100 mls/hr IV Q12H [facility] Last Infusion: 11/16/23 07:57 Dose: Infused Ibuprofen (Ibuprofen 400 Mg Tablet) 400 mg PO TIDWM [facility] Stop: 11/19/23 11:59 Lisinopril (Lisinopril 10 Mg Tablet) 10 mg PO DAILY [facility]; Protocol Last Admin: 11/16/23 07:54 Dose: 10 mg Magnesium Hydroxide (Milk Of Magnesia 30 Ml Oral.Susp) 30 ml PO DAILY PRN PRN Reason: Constipation Melatonin (Melatonin 3 Mg Tablet) 6 mg PO BEDTIME PRN PRN Reason: Insomnia Last Admin: 11/15/23 20:15 Dose: 6 mg Methadone HCl (Methadone Hcl 20 Mg/2 Ml Oral.Conc) 65 mg PO DAILY [facility] Last Admin: 11/16/23 07:53 Dose: 65 mg Morphine Sulfate (Morphine Sulfate 4 Mg/Ml Cartridge) 4 mg IVPUSH Q4H PRN; Protocol PRN Reason: Pain, Severe (Pain Scale 7-10) Nicotine (Nicotine 21 Mg Patch.Td24) 21 mg TRANSDERMA DAILY [facility] Last Admin: 11/16/23 07:57 Dose: Not Given Omeprazole (Omeprazole 20 Mg Capsule.Dr) 20 mg PO BID@0630,1630 [facility] Ondansetron HCl (Ondansetron Hcl 4 Mg/2 Ml Vial) 4 mg IVPUSH Q8H PRN PRN Reason: Nausea and Vomiting Oxycodone HCl (Oxycodone Hcl Immed Release 5 Mg Tablet) 5 mg PO Q6H PRN PRN Reason: Pain, Severe (Pain Scale 7-10) Sodium Chloride (0.9 % Sodium Chloride Flush 3 Ml Syringe) 3 ml IVFLUSH QSHIFT [facility] Last Admin: 11/16/23 07:56 Dose: 3 ml Allergies Allergies Allergy/AdvReac Type Severity Reaction Status Date / Time clindamycin Allergy Unknown Verified 11/11/23 19:26 Penicillins Allergy Unknown Verified 11/11/23 19:26 Assessment & Plan Assessment & Plan (1) Opioid use disorder: Status: Acute Code(s): F11.90 - Opioid use, unspecified, uncomplicated Assessment and Plan: * methadone to 70mg tomorrow morning and hold at this dose over the weekend * patient needs to be referred to OTP in the community--awaiting dispo before sending referral Total time managing care of this patient today ___20_ minutes.
--- NOTE | 2023-11-16 12:25 | HO.PM.IMPN ---
Subjective Subjective Date of Service: 11/16/23 Interval History: seen and evaluated complainig of right hip pain negative repeat blood cultures Review of Systems Review of Systems: Yes all other systems are reviewed and are negative Physical Exam Vital Signs: Vital Signs: Last Vital Signs Temp 98.1 F 11/16/23 10:51 Pulse 86 11/16/23 10:51 Resp 20 11/16/23 10:51 BP 107/59 L 11/16/23 10:51 Pulse Ox 95 11/16/23 10:51 O2 Del Method Nasal Cannula 11/16/23 10:51 O2 Flow Rate 2 11/16/23 10:51 BMI result Body Mass Index 26.3 Const: Other: Constitutional : interactive, not in distress Cardiovascular : no JVP, no lower extremity edema Respiratory : bilateral chest movement, not in resp distress , on O2 supplement Gastrointestinal: soft, lax, Non tender Skin : Warm, Dry Neurological : Alert & oriented , No focal deficit Skeletal: pain in right hip with movement, no redness or swelling in the hip Objective Data Active Medications Acetaminophen (Acetaminophen 325 Mg Tablet) 975 mg PO TIDWM [facility] Amlodipine Besylate (Amlodipine Besylate 5 Mg Tablet) 5 mg PO DAILY [facility]; Protocol Last Admin: 11/16/23 07:54 Dose: 5 mg Documented By: MALI Apixaban (Apixaban 5 Mg Tablet) 10 mg PO BID [facility] Stop: 11/22/23 21:01 Last Admin: 11/16/23 08:35 Dose: Not Given Documented By: MALI Non-Admin Reason: holding first dose per Calcium Carbonate (Calcium Carbonate 750 Mg Tab.Chew) 750 mg PO Q4H PRN PRN Reason: Heartburn Doxycycline Monohydrate (Doxycycline Monohydrate 100 Mg Capsule) 100 mg PO BID [facility] Hydroxyzine HCl (Hydroxyzine Hcl 25 Mg Tablet) 25 mg PO Q8H PRN PRN Reason: anxiety/restlessness Last Admin: 11/14/23 20:31 Dose: 25 mg Documented By: MAIDA Ceftriaxone Sodium 2 gm/ (Sodium Chloride) 50 mls @ 100 mls/hr IV Q12H [facility] Last Infusion: 11/16/23 07:57 Dose: Infused Documented By: MALI Ibuprofen (Ibuprofen 400 Mg Tablet) 400 mg PO TIDWM [facility] Stop: 11/19/23 11:59 Lisinopril (Lisinopril 10 Mg Tablet) 10 mg PO DAILY [facility]; Protocol Last Admin: 11/16/23 07:54 Dose: 10 mg Documented By: MALI Magnesium Hydroxide (Milk Of Magnesia 30 Ml Oral.Susp) 30 ml PO DAILY PRN PRN Reason: Constipation Melatonin (Melatonin 3 Mg Tablet) 6 mg PO BEDTIME PRN PRN Reason: Insomnia Last Admin: 11/15/23 20:15 Dose: 6 mg Documented By: IDALIA Methadone HCl (Methadone Hcl 20 Mg/2 Ml Oral.Conc) 65 mg PO DAILY [facility] Last Admin: 11/16/23 07:53 Dose: 65 mg Documented By: MALI Morphine Sulfate (Morphine Sulfate 4 Mg/Ml Cartridge) 4 mg IVPUSH Q4H PRN; Protocol PRN Reason: Pain, Severe (Pain Scale 7-10) Nicotine (Nicotine 21 Mg Patch.Td24) 21 mg TRANSDERMA DAILY [facility] Last Admin: 11/16/23 07:57 Dose: Not Given Documented By: MALI Non-Admin Reason: patient refused Omeprazole (Omeprazole 20 Mg Capsule.) 20 mg PO BID@0630,1630 [facility] Ondansetron HCl (Ondansetron Hcl 4 Mg/2 Ml Vial) 4 mg IVPUSH Q8H PRN PRN Reason: Nausea and Vomiting Oxycodone HCl (Oxycodone Hcl Immed Release 5 Mg Tablet) 5 mg PO Q6H PRN PRN Reason: Pain, Moderate(Pain Scale 4-6) Sodium Chloride (0.9 % Sodium Chloride Flush 3 Ml Syringe) 3 ml IVFLUSH QSHIFT [facility] Last Admin: 11/16/23 07:56 Dose: 3 ml Documented By: MALI Labs 11/15/23 06:00 11/14/23 05:35 Labs: Laboratory Results - last 24 hr 11/16/23 05:45 Anion Gap Cancelled Estim Creat Clear Calc Cancelled Estimated GFR Cancelled Random Glucose Cancelled Calcium Cancelled Microbiology Microbiology Results: Microbiology 11/13/23 06:13 Blood Culture - Preliminary Blood - Venous No growth after 48 hours. 11/13/23 06:11 Blood Culture - Preliminary Blood - Venous No growth after 48 hours. Assessment and Plan (1) Osteoarthritis of right hip: Status: Acute (2) Intractable pain: Status: Acute (3) Acute deep vein thrombosis (DVT) of right lower extremity: Status: Acute Plan 48-year-old female with pertinent history of tobacco use disorder, IV polysubstance use disorder who was brought to the emergency department after [place] near [place] train track and screaming for help, complaining of leg pain. Acute DVT of right lower extremity Unprovoked. CTA 11/13, no PE DC Lovenox and transition to [facility] Dr. Ivan Rucker, [facility] vascular surgery [facility] consulted>> no surgical intervention warranted. 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 lung nodules that are below 1 cm and do not look suspicious. Alternatively, repeat CT chest/abdomen and pelvis in a few months to re-evaluate. Sepsis d/t strep Pyogenese bacteremia Initially was on Vanco and Ceftraixone, later changed to Ceftriaxone 2 gram/daily and 2 days of Clindamycin 600 q8 per ID recommendation. At Discharge: PO Ceftin 500 mg bid for total of 10 days antibiotics as Echo showed no endocarditis. Elevated BP likely unreated HTN BP is within normal. Norvasc and Lisinopril, continue on discharge Right adrenal nodule: >4cm and >10 HU. Obtaining DHEA-S, plasma metanephrine, PAC, renin aldosterone to rule out hormonal hypersecretion Will need further work up. Oncology consult = consider repeat imaging at later time and outpatient work up Microcytic anemia Likely chronic, above transfusion threshold, follow CBC acute Hypokalemia replaced and now normal Intractable Right hip pain and OA with effusion, Ortho consult advises joint aspirate, IR attempted aspirate on 11/13, nothing came out PRN Morphine and Oxycodone Start Tylenol, Ibuprofen and Omeprazole PT eval Polysubstance IV drug use disorder: UDS positive for cocaine, fentanyl and opiates. Monitor for withdrawal refused clonidine, hydroxyzine restarted on methadone per addiction team Homelessness: Case management follow up for placement Tobacco use disorder: Nicotine patch while in the hospital. Counseled regarding cessation DVT prophylaxis: Audrey Will need overnight hospital stay for treatment of bacteremia, intractable pain requiring IV dilaudid pending PT evaluation and likely need for placement Quality Stroke Does the patient have a stroke diagnosis?: No VTE Prior VTE?: No VTE Risk Level:: Medical - moderate - high VTE Device Contraindication: Treatment Not Indicated VTE Drug Contraindication: N/A - Med Ordered
[2023-11-16] MEDS: Doxycycline Monohydrate 100 MG CAPSULE PO ×2 (13:16→20:09)
[2023-11-16] MEDS: oxyCODONE HCl Immed Release 5 MG TABLET PO ×2 (15:30→21:55)
[2023-11-16] MEDS: Omeprazole 20 MG CAPSULE.DR PO (17:01)
[2023-11-16] MEDS: Acetaminophen 325 MG TABLET 975 MG PO (17:02)
[2023-11-16] MEDS: Ibuprofen 400 MG TABLET PO (17:02)
[2023-11-16] MEDS: Apixaban 5 MG TABLET 10 MG PO (20:09)
--- NOTE | 2023-11-16 20:21 | PC.NURSE ---
Addendum entered by Danika Kim RN 11/17/23 05:44: Patient frequently observed with nc off/ pulled down around chin on purposeful rounding and responding to call wray. NC replaced and pt educated on importance of keeping nasal cannula on for adequate oxygenation due to low oxygen without it (failed attempts to wean per protocol). Continuous spo2 monitoring placed. Spo2 maintained 93% and above when 2L nc is in place. Breathing is even and unlabored without distress. Original Note: Assumed care of patient at 19:15. Patient noted on tele to be NSR with frequent PVC's with occassional bouts of bigeminy. Per tigertext from phlebotomy, patient refused labs earlier today and occupational medicine physician requested clarification on whether or not patient would be willing to let them try again at this time. Rag Shredder presented to patient's room to discuss case monitor observations above and concerns for possible electrolyte imbalance and risks. Patient is A&Ox4. Accusatory, resistive to care, only allowing limited assessment, expressed upset with disturbing her rest for assessment and evening meds. Patient refused lab draws despite education. Lab and covering Dr. Montano notified.
[2023-11-17] VITALS (19 sets, daily range): BP systolic 98–130; BP diastolic 52–85; PULSE 48–93; RESP 14–20; TEMP 36.2–37.2; O2SAT 90–97
[2023-11-17] MEDS: Morphine Sulfate 4 MG/ML CARTRIDGE IVPUSH ×5 (00:40→22:42)
[2023-11-17] MEDS: oxyCODONE HCl Immed Release 5 MG TABLET PO ×3 (04:31→21:05)
[2023-11-17] MEDS: Omeprazole 20 MG CAPSULE.DR PO ×2 (06:04→16:05)
[2023-11-17] MEDS: cefTRIAXone sodium 2 GM in 0.9 % Sodium Chloride 50 ML IV ×2 (06:04→17:33)
[2023-11-17] MEDS: lisinopriL 10 MG TABLET PO (09:10)
[2023-11-17] MEDS: methADONE HCl 20 MG/2 ML ORAL.CONC 70 MG PO (09:10)
[2023-11-17] MEDS: Doxycycline Monohydrate 100 MG CAPSULE PO ×2 (09:10→21:04)
[2023-11-17] MEDS: amLODIPine Besylate 5 MG TABLET PO (09:11)
[2023-11-17] MEDS: Ibuprofen 400 MG TABLET PO ×3 (09:11→17:31)
[2023-11-17] MEDS: Apixaban 5 MG TABLET 10 MG PO ×2 (09:11→21:00)
[2023-11-17] MEDS: 0.9 % Sodium Chloride Flush 3 ML SYRINGE IVFLUSH ×3 (09:12→21:07)
[2023-11-17] MEDS: Acetaminophen 325 MG TABLET 975 MG PO ×3 (09:12→17:31)
[2023-11-17 09:57] LABS: Hematocrit 26.6 % (37.0-47.0); Hemoglobin 8.4 g/dl (12.0-16.0); Mean Corpuscular HGB Conc 31.6 g/dl (31.0-35.0); Mean Corpuscular Hemoglobin 22.7 pg (27.0-33.0); Mean Corpuscular Volume 71.9 fL (80.0-98.0); Mean Platelet Volume 9.2 fL (9.4-12.3); Platelet Count 424 X10*3/uL (160-400); Red Cell Distribution Width 16.2 % (11.0-16.0); White Blood Count 10.1 X10*3/uL (4.8-10.8)
[2023-11-17] MEDS: guaiFENesin LA 600 MG TAB.ER.12H PO (10:10)
[2023-11-17 10:11] LABS: Anion Gap 14 (12-20); Blood Urea Nitrogen 10 mg/dL (9-16); Calcium 8.7 mg/dL (8.4-10.2); Carbon Dioxide 26 mmol/L (22-29); Chloride 97 mmol/L (96-108); Creatinine Clr Calc Pharmacy 108.9; Estimated Glomerular Filt Rate > 60; Glucose Random 129 mg/dL (60-115); Potassium 4.1 mmol/L (3.3-5.1); Sodium 133 mmol/L (135-145)
[2023-11-17] MEDS: Metoprolol Tartrate 12.5 MG HALFTAB PO ×2 (10:11→21:04)
[2023-11-17] MEDS: Albuterol/Iprat 2.5/0.5MG 3 ML AMPUL.NEB INHALE ×2 (11:21→15:30)
--- NOTE | 2023-11-17 11:43 | MHC.CM.PN ---
Pt requested a phone in her room, she said she wants to arrange for where she will go after hosp. CM brought her a phone, gave her the phone # for [facility] and the brochures for PCPs and resources. Pt is not medically cleared, [facility]
--- NOTE | 2023-11-17 12:29 | HO.PM.IMPN ---
Subjective Subjective Date of Service: 11/17/23 Interval History: seen and evaluated complainig of right hip pain but overall better negative repeat blood cultures did not participate with PT yesterday Review of Systems Review of Systems: Yes all other systems are reviewed and are negative Physical Exam Vital Signs: Vital Signs: Last Vital Signs Temp 98.9 F 11/17/23 11:22 Pulse 88 11/17/23 11:26 Resp 14 11/17/23 11:26 BP 126/68 11/17/23 11:22 Pulse Ox 91 L 11/17/23 11:22 O2 Del Method Room Air 11/17/23 11:22 O2 Flow Rate 2 11/17/23 07:00 BMI result Body Mass Index 26.3 Const: Other: Constitutional : interactive, not in distress Cardiovascular : no JVP, no lower extremity edema Respiratory : bilateral chest movement, not in resp distress , on O2 supplement Gastrointestinal: soft, lax, Non tender Skin : Warm, Dry Neurological : Alert & oriented , No focal deficit Skeletal: pain in right hip with movement, no redness or swelling in the hip Objective Data Active Medications Acetaminophen (Acetaminophen 325 Mg Tablet) 975 mg PO TIDWM [facility] Last Admin: 11/17/23 09:12 Dose: 975 mg Documented By: ZACKARY Albuterol/Ipratropium (Albuterol/Iprat 2.5/0.5mg 3 Ml Ampul.Neb) 3 ml INHALE RQ6H WHILE AWAKE [facility] Last Admin: 11/17/23 11:21 Dose: 3 ml Documented By: NISREEN Amlodipine Besylate (Amlodipine Besylate 5 Mg Tablet) 5 mg PO DAILY [facility]; Protocol Last Admin: 11/17/23 09:11 Dose: 5 mg Documented By: ZACKARY Apixaban (Apixaban 5 Mg Tablet) 10 mg PO BID [facility] Stop: 11/22/23 21:01 Last Admin: 11/17/23 09:11 Dose: 10 mg Documented By: ZACKARY Calcium Carbonate (Calcium Carbonate 750 Mg Tab.Chew) 750 mg PO Q4H PRN PRN Reason: Heartburn Doxycycline Monohydrate (Doxycycline Monohydrate 100 Mg Capsule) 100 mg PO BID [facility] Last Admin: 11/17/23 09:10 Dose: 100 mg Documented By: ZACKARY Guaifenesin (Guaifenesin La 600 Mg Tab.Er.12h) 600 mg PO BID [facility] Last Admin: 11/17/23 10:10 Dose: 600 mg Documented By: ZACKARY Hydroxyzine HCl (Hydroxyzine Hcl 25 Mg Tablet) 25 mg PO Q8H PRN PRN Reason: anxiety/restlessness Last Admin: 11/14/23 20:31 Dose: 25 mg Documented By: MAIDA Ceftriaxone Sodium 2 gm/ (Sodium Chloride) 50 mls @ 100 mls/hr IV Q12H [facility] Last Infusion: 11/17/23 06:34 Dose: Infused Documented By: PAPO Ibuprofen (Ibuprofen 400 Mg Tablet) 400 mg PO TIDWM [facility] Stop: 11/19/23 11:59 Last Admin: 11/17/23 09:11 Dose: 400 mg Documented By: ZACKARY Lisinopril (Lisinopril 10 Mg Tablet) 10 mg PO DAILY [facility]; Protocol Last Admin: 11/17/23 09:10 Dose: 10 mg Documented By: ZACKARY Magnesium Hydroxide (Milk Of Magnesia 30 Ml Oral.Susp) 30 ml PO DAILY PRN PRN Reason: Constipation Melatonin (Melatonin 3 Mg Tablet) 6 mg PO BEDTIME PRN PRN Reason: Insomnia Last Admin: 11/15/23 20:15 Dose: 6 mg Documented By: IDALIA Methadone HCl (Methadone Hcl 20 Mg/2 Ml Oral.Conc) 70 mg PO DAILY [facility] Last Admin: 11/17/23 09:10 Dose: 70 mg Documented By: ZACKARY Metoprolol Tartrate (Metoprolol Tartrate 12.5 Mg Halftab) 12.5 mg PO BID [facility]; Protocol Last Admin: 11/17/23 10:11 Dose: 12.5 mg Documented By: ZACKARY Morphine Sulfate (Morphine Sulfate 4 Mg/Ml Cartridge) 4 mg IVPUSH Q4H PRN; Protocol PRN Reason: Pain, Severe (Pain Scale 7-10) Last Admin: 11/17/23 09:29 Dose: 4 mg Documented By: ZACKARY Nicotine (Nicotine 21 Mg Patch.Td24) 21 mg TRANSDERMA DAILY [facility] Last Admin: 11/17/23 09:15 Dose: Not Given Documented By: ZACKARY Non-Admin Reason: Patient Refused Omeprazole (Omeprazole 20 Mg Capsule.) 20 mg PO BID@0630,1630 [facility] Last Admin: 11/17/23 06:04 Dose: 20 mg Documented By: PAPO Ondansetron HCl (Ondansetron Hcl 4 Mg/2 Ml Vial) 4 mg IVPUSH Q8H PRN PRN Reason: Nausea and Vomiting Oxycodone HCl (Oxycodone Hcl Immed Release 5 Mg Tablet) 5 mg PO Q6H PRN PRN Reason: Pain, Moderate(Pain Scale 4-6) Last Admin: 11/17/23 10:10 Dose: 5 mg Documented By: ZACKARY Sodium Chloride (0.9 % Sodium Chloride Flush 3 Ml Syringe) 3 ml IVFLUSH QSHIFT [facility] Last Admin: 11/17/23 09:12 Dose: 3 ml Documented By: ZACKARY Labs 11/17/23 09:23 11/17/23 09:23 Labs: Laboratory Results - last 24 hr 11/17/23 09:23 MCV 71.9 L MCH 22.7 L MCHC 31.6 RDW 16.2 H Plt Count 424 H D MPV 9.2 L Absolute Nucleated RBC 0.000 Nucleated RBC % (auto) 0.0 Anion Gap 14 Estim Creat Clear Calc 108.9 Estimated GFR > 60 Random Glucose 129 H Calcium 8.7 Assessment and Plan (1) Intractable pain: Status: Acute (2) Osteoarthritis of right hip: Status: Acute (3) Opioid use disorder: Status: Acute (4) Acute deep vein thrombosis (DVT) of right lower extremity: Status: Acute Plan 48-year-old female with pertinent history of tobacco use disorder, IV polysubstance use disorder who was brought to the emergency department after she [place] lying near the train track and screaming for help, complaining of leg pain. Acute DVT of right lower extremity Unprovoked. CTA 11/13, no PE DC Lovenox and transition to [facility] Dr. Ivan Rucker, [facility] vascular surgery [facility] consulted>> no surgical intervention warranted. hematology consult for unprovoked DVT and adrenal mass, recommended Endocrine workup and Outpatient referral to optometrist. lung nodules that are below 1 cm and do not look suspicious. Alternatively, repeat CT chest/abdomen and pelvis in a few months to re-evaluate. Sepsis d/t strep Pyogenese bacteremia Initially was on Vanco and Ceftraixone, later changed to Ceftriaxone 2 gram/daily and 2 days of Clindamycin 600 q8 per ID recommendation. At Discharge: PO Ceftin 500 mg bid for total of 10 days antibiotics as Echo showed no endocarditis. Elevated BP likely unreated HTN BP is within normal. Norvasc and Lisinopril, continue on discharge Right adrenal nodule: >4cm and >10 HU. Obtaining DHEA-S, plasma metanephrine, PAC, renin aldosterone to rule out hormonal hypersecretion Will need further work up. Oncology consult = consider repeat imaging at later time and outpatient work up Microcytic anemia Likely chronic, above transfusion threshold, follow CBC acute Hypokalemia replaced and now normal Intractable Right hip pain and OA with effusion, Ortho consult advises joint aspirate, IR attempted aspirate on 11/13, nothing came out PRN Morphine and Oxycodone Start Tylenol, Ibuprofen and Omeprazole PT eval Discuss with ORthopedic for OP plans: injection vs Hip replacement ? Polysubstance IV drug use disorder: UDS positive for cocaine, fentanyl and opiates. Monitor for withdrawal refused clonidine, hydroxyzine restarted on methadone per addiction team Homelessness: Case management follow up for placement Tobacco use disorder: Nicotine patch while in the hospital. Counseled regarding cessation DVT prophylaxis: [facility] Will need overnight hospital stay for treatment of bacteremia, intractable pain requiring IV dilaudid pending PT evaluation and likely need for placement Quality Stroke Does the patient have a stroke diagnosis?: No VTE Prior VTE?: No VTE Risk Level:: Medical - moderate - high VTE Device Contraindication: Treatment Not Indicated VTE Drug Contraindication: N/A - Med Ordered
[2023-11-17 12:47] LABS: Renin 0.48 ng/mL/h (0.25-5.82)
[2023-11-17 19:39] LABS: Metanephrine, Free <25 pg/mL (<=57); Normetanephrines, Free 142 pg/mL (<=148); Total Metanephrine, Free 142 pg/mL (<=205)
[2023-11-17 20:29] LABS: Creatinine Random Urine 72 mg/dL (20-275); Metanephrine, Free Rand Ur 217 mcg/g cr (33-192); Normetanephrine, Free Rand Ur 959 mcg/g cr (85-514); Total Metanephrine, Free RU 1176 mcg/g cr (155-608)
[2023-11-18] VITALS (10 sets, daily range): BP systolic 90–134; BP diastolic 45–68; PULSE 65–88; RESP 16–18; TEMP 36.3–37.1; O2SAT 92–96
[2023-11-18] MEDS: hydrOXYzine HCL 25 MG TABLET PO ×2 (01:51→14:18)
[2023-11-18] MEDS: Morphine Sulfate 4 MG/ML CARTRIDGE IVPUSH ×4 (03:00→21:04)
[2023-11-18] MEDS: oxyCODONE HCl Immed Release 5 MG TABLET PO ×2 (04:11→10:56)
[2023-11-18] MEDS: cefTRIAXone sodium 2 GM in 0.9 % Sodium Chloride 50 ML IV ×2 (06:15→18:43)
[2023-11-18] MEDS: Omeprazole 20 MG CAPSULE.DR PO ×2 (06:15→16:46)
[2023-11-18] MEDS: Ibuprofen 400 MG TABLET PO ×3 (08:45→16:46)
[2023-11-18] MEDS: guaiFENesin LA 600 MG TAB.ER.12H PO ×2 (08:46→20:57)
[2023-11-18] MEDS: Apixaban 5 MG TABLET 10 MG PO ×2 (08:46→20:57)
[2023-11-18] MEDS: Metoprolol Tartrate 12.5 MG HALFTAB PO ×2 (08:46→20:57)
[2023-11-18] MEDS: Acetaminophen 325 MG TABLET 975 MG PO ×3 (08:46→16:46)
[2023-11-18] MEDS: methADONE HCl 20 MG/2 ML ORAL.CONC 70 MG PO (08:46)
[2023-11-18] MEDS: Doxycycline Monohydrate 100 MG CAPSULE PO ×2 (08:46→20:57)
[2023-11-18] MEDS: 0.9 % Sodium Chloride Flush 3 ML SYRINGE IVFLUSH ×3 (08:50→21:08)
[2023-11-18 09:49] LABS: DHEA, Unconjugated 368 ng/dL
--- NOTE | 2023-11-18 14:25 | HO.PM.IMPN ---
Subjective Subjective Date of Service: 11/18/23 Interval History: seen and evaluated complainig of right hip pain but overall better negative repeat blood cultures did not participate with PT yesterday Physical Exam Vital Signs: Vital Signs: Last Vital Signs Temp 97.8 F 11/18/23 12:00 Pulse 74 11/18/23 12:00 Resp 18 11/18/23 12:00 BP 110/63 11/18/23 14:17 Pulse Ox 94 11/18/23 12:00 O2 Del Method Room Air 11/18/23 12:00 O2 Flow Rate 2 11/18/23 04:00 BMI result Body Mass Index 26.3 Const: Other: Constitutional : interactive, not in distress Cardiovascular : no JVP, no lower extremity edema Respiratory : bilateral chest movement, not in resp distress , on O2 supplement Gastrointestinal: soft, lax, Non tender Skin : Warm, Dry Neurological : Alert & oriented , No focal deficit Skeletal: pain in right hip with movement, no redness or swelling in the hip Objective Data Active Medications Acetaminophen (Acetaminophen 325 Mg Tablet) 975 mg PO TIDWM [facility] Last Admin: 11/18/23 11:50 Dose: 975 mg Documented By: RUPINDER Albuterol/Ipratropium (Albuterol/Iprat 2.5/0.5mg 3 Ml Ampul.Neb) 3 ml INHALE RQ6H WHILE AWAKE [facility] Last Admin: 11/18/23 07:51 Dose: Not Given Documented By: ORTIZ Non-Admin Reason: Patient Asleep Amlodipine Besylate (Amlodipine Besylate 5 Mg Tablet) 5 mg PO DAILY [facility]; Protocol Last Admin: 11/17/23 09:11 Dose: 5 mg Documented By: ZACKARY Apixaban (Apixaban 5 Mg Tablet) 10 mg PO BID [facility] Stop: 11/22/23 21:01 Last Admin: 11/18/23 08:46 Dose: 10 mg Documented By: RUPINDER Calcium Carbonate (Calcium Carbonate 750 Mg Tab.Chew) 750 mg PO Q4H PRN PRN Reason: Heartburn Doxycycline Monohydrate (Doxycycline Monohydrate 100 Mg Capsule) 100 mg PO BID [facility] Last Admin: 11/18/23 08:46 Dose: 100 mg Documented By: RUPINDER Guaifenesin (Guaifenesin La 600 Mg Tab.Er.12h) 600 mg PO BID [facility] Last Admin: 11/18/23 08:46 Dose: 600 mg Documented By: RUPINDER Hydroxyzine HCl (Hydroxyzine Hcl 25 Mg Tablet) 25 mg PO Q8H PRN PRN Reason: anxiety/restlessness Last Admin: 11/18/23 14:18 Dose: 25 mg Documented By: RUPINDER Ceftriaxone Sodium 2 gm/ (Sodium Chloride) 50 mls @ 100 mls/hr IV Q12H [facility] Last Infusion: 11/18/23 06:45 Dose: Infused Documented By: GURINDER Ibuprofen (Ibuprofen 400 Mg Tablet) 400 mg PO TIDWM [facility] Stop: 11/19/23 11:59 Last Admin: 11/18/23 11:50 Dose: 400 mg Documented By: RUPINDER Lisinopril (Lisinopril 10 Mg Tablet) 10 mg PO DAILY [facility]; Protocol Last Admin: 11/18/23 08:54 Dose: Not Given Documented By: RUPINDER Non-Admin Reason: pt refused and MD made aware Magnesium Hydroxide (Milk Of Magnesia 30 Ml Oral.Susp) 30 ml PO DAILY PRN PRN Reason: Constipation Melatonin (Melatonin 3 Mg Tablet) 6 mg PO BEDTIME PRN PRN Reason: Insomnia Last Admin: 11/15/23 20:15 Dose: 6 mg Documented By: IDALIA Methadone HCl (Methadone Hcl 20 Mg/2 Ml Oral.Conc) 70 mg PO DAILY [facility] Last Admin: 11/18/23 08:46 Dose: 70 mg Documented By: RUPINDER Metoprolol Tartrate (Metoprolol Tartrate 12.5 Mg Halftab) 12.5 mg PO BID [facility]; Protocol Last Admin: 11/18/23 08:46 Dose: 12.5 mg Documented By: RUPINDER Morphine Sulfate (Morphine Sulfate 4 Mg/Ml Cartridge) 4 mg IVPUSH Q4H PRN; Protocol PRN Reason: Pain, Severe (Pain Scale 7-10) Last Admin: 11/18/23 14:18 Dose: 4 mg Documented By: RUPINDER Nicotine (Nicotine 21 Mg Patch.Td24) 21 mg TRANSDERMA DAILY [facility] Last Admin: 11/18/23 08:56 Dose: Not Given Documented By: RUPINDER Non-Admin Reason: pt refused Omeprazole (Omeprazole 20 Mg Capsule.) 20 mg PO BID@0630,1630 [facility] Last Admin: 11/18/23 06:15 Dose: 20 mg Documented By: GURINDER Ondansetron HCl (Ondansetron Hcl 4 Mg/2 Ml Vial) 4 mg IVPUSH Q8H PRN PRN Reason: Nausea and Vomiting Oxycodone HCl (Oxycodone Hcl Immed Release 5 Mg Tablet) 5 mg PO Q6H PRN PRN Reason: Pain, Moderate(Pain Scale 4-6) Last Admin: 11/18/23 10:56 Dose: 5 mg Documented By: RUPINDER Sodium Chloride (0.9 % Sodium Chloride Flush 3 Ml Syringe) 3 ml IVFLUSH QSHIFT [facility] Last Admin: 11/18/23 08:50 Dose: 3 ml Documented By: RUPINDER Labs 11/17/23 09:23 11/17/23 09:23 Labs: Laboratory Results - last 24 hr 11/12/23 11/12/23 11/12/23 04:27 04:28 13:50 Unconjugated DHEA 368 Plasma Free Metaneph <25 Plasma Free Normeta 142 Plas Total Metaneph 142 Ur [place] Metanephrines 217 H U [place] Normetanephrine 959 H U Total Metanephrines 1176 H Urine Creatinine 72 Microbiology Microbiology Results: Microbiology 11/13/23 06:13 Blood Culture - Final Blood - Venous No growth after 5 days. 11/13/23 06:11 Blood Culture - Final Blood - Venous No growth after 5 days. 11/12/23 21:53 Blood Culture - Final Blood - Venous No growth after 5 days. 11/12/23 21:53 Blood Culture - Final Blood - Venous No growth after 5 days. Assessment and Plan (1) Intractable pain: Status: Acute (2) Osteoarthritis of right hip: Status: Acute (3) Opioid use disorder: Status: Acute (4) Acute deep vein thrombosis (DVT) of right lower extremity: Status: Acute Plan 48-year-old female with pertinent history of tobacco use disorder, IV polysubstance use disorder who was brought to the emergency department after she [place] train track and screaming for help, complaining of leg pain. Intractable Right hip pain 2/2 Severe OA Ortho consult advises joint aspirate, IR attempted aspirate on 11/13, nothing came out PRN Morphine and Oxycodone Start Tylenol, Ibuprofen and Omeprazole PT eval Discuss with ORthopedic for OP plans: injection vs Hip replacement as outpatient. she needs to be off drugs 3-6 months before any surgical plans IR can do hip injection as OP once she is done with antibiotics. Acute DVT of right lower extremity Unprovoked. CTA 11/13, no PE DC Lovenox and transition to [facility] Dr. Ivan Rucker, [facility] vascular surgery [facility] consulted>> no surgical intervention warranted. hematology consult for unprovoked DVT and adrenal mass, recommended Endocrine workup and Outpatient referral to supervisor waterproofing. lung nodules that are below 1 cm and do not look suspicious. Alternatively, repeat CT chest/abdomen and pelvis in a few months to re-evaluate. Sepsis d/t strep Pyogenese bacteremia Initially was on Vanco and Ceftraixone, later changed to Ceftriaxone 2 gram/daily and 2 days of Clindamycin 600 q8 per ID recommendation. Continue Ceftriaxone for now At Discharge: PO Ceftin 500 mg bid for total of 10 days antibiotics as Echo showed no endocarditis. Elevated BP likely unreated HTN BP is within normal. Norvasc and Lisinopril, continue on discharge Right adrenal nodule: >4cm and >10 HU. Obtaining DHEA-S, plasma metanephrine, PAC, renin aldosterone to rule out hormonal hypersecretion Will need further work up. Oncology consult = consider repeat imaging at later time and outpatient work up Microcytic anemia Likely chronic, above transfusion threshold, follow CBC acute Hypokalemia replaced and now normal Polysubstance IV drug use disorder: UDS positive for cocaine, fentanyl and opiates. Monitor for withdrawal refused clonidine, hydroxyzine restarted on methadone per addiction team Homelessness: Case management follow up for placement Tobacco use disorder: Nicotine patch while in the hospital. Counseled regarding cessation DVT prophylaxis: [facility] Will need overnight hospital stay for treatment of bacteremia, intractable pain requiring IV dilaudid pending better control of pain and need for placement Quality Stroke Does the patient have a stroke diagnosis?: No VTE Prior VTE?: No VTE Risk Level:: Medical - moderate - high VTE Device Contraindication: Treatment Not Indicated VTE Drug Contraindication: N/A - Med Ordered
[2023-11-18] MEDS: Iron Sucrose Complex 200 MG in 0.9 % Sodium Chloride 100 ML 440 MG IV (17:12)
[2023-11-18] MEDS: Melatonin 3 MG TABLET 6 MG PO (21:08)
[2023-11-19] VITALS (9 sets, daily range): BP systolic 94–117; BP diastolic 50–68; PULSE 56–92; RESP 15–20; TEMP 36.1–37.2; O2SAT 91–98
[2023-11-19] MEDS: Morphine Sulfate 4 MG/ML CARTRIDGE IVPUSH ×4 (02:44→21:05)
[2023-11-19] MEDS: cefTRIAXone sodium 2 GM in 0.9 % Sodium Chloride 50 ML IV ×2 (05:05→17:38)
[2023-11-19] MEDS: oxyCODONE HCl Immed Release 5 MG TABLET PO ×4 (05:05→20:15)
[2023-11-19] MEDS: Omeprazole 20 MG CAPSULE.DR PO ×2 (05:05→16:12)
[2023-11-19 06:47] LABS: Anion Gap 13 (12-20); Blood Urea Nitrogen 15 mg/dL (9-16); Calcium 9.2 mg/dL (8.4-10.2); Carbon Dioxide 28 mmol/L (22-29); Chloride 98 mmol/L (96-108); Creatinine Clr Calc Pharmacy 112.5; Estimated Glomerular Filt Rate > 60; Glucose Random 81 mg/dL (60-115); Potassium 4.4 mmol/L (3.3-5.1); Sodium 135 mmol/L (135-145)
[2023-11-19 06:48] LABS: Mean Corpuscular HGB Conc 30.8 g/dl (31.0-35.0); Mean Corpuscular Hemoglobin 22.3 pg (27.0-33.0); Mean Corpuscular Volume 72.4 fL (80.0-98.0); Mean Platelet Volume 9.1 fL (9.4-12.3); Platelet Count 478 X10*3/uL (160-400); Red Blood Count 3.59 X10*6/uL (4.20-5.50); Red Cell Distribution Width 16.5 % (11.0-16.0); White Blood Count 9.3 X10*3/uL (4.8-10.8)
[2023-11-19] MEDS: Metoprolol Tartrate 12.5 MG HALFTAB PO ×2 (08:09→20:14)
[2023-11-19] MEDS: Acetaminophen 325 MG TABLET 975 MG PO ×3 (08:09→16:11)
[2023-11-19] MEDS: Ibuprofen 400 MG TABLET PO ×3 (08:09→16:11)
[2023-11-19] MEDS: lisinopriL 10 MG TABLET PO (08:10)
[2023-11-19] MEDS: guaiFENesin LA 600 MG TAB.ER.12H PO ×2 (08:10→20:15)
[2023-11-19] MEDS: Apixaban 5 MG TABLET 10 MG PO ×2 (08:10→20:14)
[2023-11-19] MEDS: Doxycycline Monohydrate 100 MG CAPSULE PO ×2 (08:10→20:15)
[2023-11-19] MEDS: methADONE HCl 20 MG/2 ML ORAL.CONC 70 MG PO (08:10)
--- NOTE | 2023-11-19 10:41 | P.PNIM_ITS ---
Subjective Subjective Date of Service: 11/19/23 Interval History: seen and evaluated right hip pain little better controlled no other events Review of Systems Review of Systems: Yes all other systems are reviewed and are negative Physical Exam 2 Vital Signs: Vital Signs: Last Vital Signs Temp 99.0 F 11/19/23 07:15 Pulse 92 11/19/23 07:15 Resp 18 11/19/23 07:15 BP 117/68 11/19/23 07:15 Pulse Ox 93 11/19/23 07:15 O2 Del Method Nasal Cannula 11/19/23 07:15 O2 Flow Rate 1 11/19/23 07:15 BMI result Body Mass Index 26.3 Const: Other: Constitutional : interactive, not in distress Cardiovascular : no JVP, no lower extremity edema Respiratory : bilateral chest movement, not in resp distress , on O2 supplement Gastrointestinal: soft, lax, Non tender Skin : Warm, Dry Neurological : Alert & oriented , No focal deficit Skeletal: pain in right hip with movement, no redness or swelling in the hip Objective Data Active Medications Acetaminophen (Acetaminophen 325 Mg Tablet) 975 mg PO TIDWM [facility] Last Admin: 11/19/23 08:09 Dose: 975 mg Documented By: DAMIEN Albuterol/Ipratropium (Albuterol/Iprat 2.5/0.5mg 3 Ml Ampul.Neb) 3 ml INHALE RQ6H WHILE AWAKE [facility] Last Admin: 11/19/23 07:43 Dose: Not Given Documented By: ORTIZ Non-Admin Reason: Patient Asleep Amlodipine Besylate (Amlodipine Besylate 5 Mg Tablet) 5 mg PO DAILY [facility]; Protocol Last Admin: 11/17/23 09:11 Dose: 5 mg Documented By: ZACKARY Apixaban (Apixaban 5 Mg Tablet) 10 mg PO BID [facility] Stop: 11/22/23 21:01 Last Admin: 11/19/23 08:10 Dose: 10 mg Documented By: DAMIEN Calcium Carbonate (Calcium Carbonate 750 Mg Tab.Chew) 750 mg PO Q4H PRN PRN Reason: Heartburn Doxycycline Monohydrate (Doxycycline Monohydrate 100 Mg Capsule) 100 mg PO BID [facility] Last Admin: 11/19/23 08:10 Dose: 100 mg Documented By: DAMIEN Guaifenesin (Guaifenesin La 600 Mg Tab.Er.12h) 600 mg PO BID [facility] Last Admin: 11/19/23 08:10 Dose: 600 mg Documented By: DAMIEN Hydroxyzine HCl (Hydroxyzine Hcl 25 Mg Tablet) 25 mg PO Q8H PRN PRN Reason: anxiety/restlessness Last Admin: 11/18/23 14:18 Dose: 25 mg Documented By: RUPINDER Ceftriaxone Sodium 2 gm/ (Sodium Chloride) 50 mls @ 100 mls/hr IV Q12H [facility] Last Infusion: 11/19/23 05:35 Dose: Infused Documented By: GURINDER Ibuprofen (Ibuprofen 400 Mg Tablet) 400 mg PO TIDWM [facility] Stop: 11/21/23 11:59 Last Admin: 11/19/23 08:09 Dose: 400 mg Documented By: DAMIEN Lisinopril (Lisinopril 10 Mg Tablet) 10 mg PO DAILY [facility]; Protocol Last Admin: 11/19/23 08:10 Dose: 10 mg Documented By: DAMIEN Magnesium Hydroxide (Milk Of Magnesia 30 Ml Oral.Susp) 30 ml PO DAILY PRN PRN Reason: Constipation Melatonin (Melatonin 3 Mg Tablet) 6 mg PO BEDTIME PRN PRN Reason: Insomnia Last Admin: 11/18/23 21:08 Dose: 6 mg Documented By: GURINDER Methadone HCl (Methadone Hcl 20 Mg/2 Ml Oral.Conc) 75 mg PO DAILY [facility] Last Admin: 11/19/23 08:17 Dose: Not Given Documented By: DAMIEN Non-Admin Reason: dose given this AM Metoprolol Tartrate (Metoprolol Tartrate 12.5 Mg Halftab) 12.5 mg PO BID [facility]; Protocol Last Admin: 11/19/23 08:09 Dose: 12.5 mg Documented By: DAMIEN Morphine Sulfate (Morphine Sulfate 4 Mg/Ml Cartridge) 4 mg IVPUSH Q6H PRN; Protocol PRN Reason: Pain, Severe (Pain Scale 7-10) Nicotine (Nicotine 21 Mg Patch.Td24) 21 mg TRANSDERMA DAILY [facility] Last Admin: 11/19/23 08:11 Dose: Not Given Documented By: DAMIEN Non-Admin Reason: Patient Refused Omeprazole (Omeprazole 20 Mg Capsule.) 20 mg PO BID@0630,1630 [facility] Last Admin: 11/19/23 05:05 Dose: 20 mg Documented By: GURINDER Ondansetron HCl (Ondansetron Hcl 4 Mg/2 Ml Vial) 4 mg IVPUSH Q8H PRN PRN Reason: Nausea and Vomiting Oxycodone HCl (Oxycodone Hcl Immed Release 5 Mg Tablet) 5 mg PO Q4H PRN PRN Reason: Pain, Moderate(Pain Scale 4-6) Sodium Chloride (0.9 % Sodium Chloride Flush 3 Ml Syringe) 3 ml IVFLUSH QSHIFT [facility] Last Admin: 11/19/23 07:43 Dose: Not Given Documented By: DAMIEN Non-Admin Reason: Previously Administered Labs 11/19/23 06:10 11/19/23 06:10 Labs: Laboratory Results - last 24 hr 11/12/23 11/19/23 04:28 06:10 MCV 72.4 L MCH 22.3 L MCHC 30.8 L RDW 16.5 H Plt Count 478 H MPV 9.1 L Absolute Nucleated RBC 0.000 Nucleated RBC % (auto) 0.0 Anion Gap 13 Estim Creat Clear Calc 112.5 Estimated GFR > 60 Random Glucose 81 Calcium 9.2 Renin Activity 0.50 Aldosterone <1 Aldosterone/Renin Ratio see note Microbiology Microbiology Results: Microbiology 11/13/23 06:13 Blood Culture - Final Blood - Venous No growth after 5 days. 11/13/23 06:11 Blood Culture - Final Blood - Venous No growth after 5 days. Assessment and Plan (1) Intractable pain: Status: Acute (2) Osteoarthritis of right hip: Status: Acute (3) Opioid use disorder: Status: Acute (4) IVDU (intravenous drug user): Status: Acute (5) Acute deep vein thrombosis (DVT) of right lower extremity: Status: Acute (6) Bacterial infection due to streptococcus, group A: Status: Acute Plan 48-year-old female with pertinent history of tobacco use disorder, IV polysubstance use disorder who was brought to the emergency department after [place] track and screaming for help, complaining of leg pain. Intractable Right hip pain 2/2 Severe OA Ortho consult advises joint aspirate, IR attempted aspirate on 11/13, nothing came out PRN Morphine and Oxycodone Tylenol, Ibuprofen and Omeprazole PT eval rec SN[facility] Discuss with ORthopedic for OP plans: injection vs Hip replacement as outpatient. she needs to be off drugs 3-6 months before any surgical plans IR can do hip injection as OP once she is done with antibiotics. Acute DVT of right lower extremity Unprovoked. CTA 11/13, no PE DC Lovenox and transition to [facility] Dr. Ivan Rucker, [facility] vascular surgery [facility] consulted>> no surgical intervention warranted. hematology consult for unprovoked DVT and adrenal mass, recommended Endocrine workup and Outpatient referral to senior designer. lung nodules that are below 1 cm and do not look suspicious. Alternatively, repeat CT chest/abdomen and pelvis in a few months to re-evaluate. Sepsis d/t strep Pyogenese bacteremia Initially was on Vanco and Ceftraixone, later changed to Ceftriaxone 2 gram/daily and 2 days of Clindamycin 600 q8 per ID recommendation. Continue Ceftriaxone for now At Discharge: PO Ceftin 500 mg bid for total of 10 days antibiotics as Echo showed no endocarditis. Elevated BP likely unreated HTN BP is within normal. Norvasc and Lisinopril, continue on discharge Right adrenal nodule: >4cm and >10 HU. Obtaining DHEA-S, plasma metanephrine, PAC, renin aldosterone to rule out hormonal hypersecretion Will need further work up. Oncology consult = consider repeat imaging at later time and outpatient work up Microcytic anemia Likely chronic, above transfusion threshold, follow CBC acute Hypokalemia replaced and now normal Polysubstance IV drug use disorder: UDS positive for cocaine, fentanyl and opiates. Monitor for withdrawal refused clonidine, hydroxyzine increase methadone to 75, followed by addiction team Homelessness: Case management follow up for placement Tobacco use disorder: Nicotine patch while in the hospital. Counseled regarding cessation DVT prophylaxis: [facility] Will need overnight hospital stay for treatment of bacteremia, intractable pain requiring IV pain medicaitons pending better control of pain and need for placement Quality Stroke Does the patient have a stroke diagnosis?: No VTE Prior VTE?: No VTE Risk Level:: Medical - moderate - high VTE Device Contraindication: Treatment Not Indicated VTE Drug Contraindication: N/A - Med Ordered
[2023-11-19] MEDS: Iron Sucrose Complex 200 MG in 0.9 % Sodium Chloride 100 ML 440 MG IV (14:44)
[2023-11-19] MEDS: Albuterol/Iprat 2.5/0.5MG 3 ML AMPUL.NEB INHALE (15:22)
[2023-11-19] MEDS: Ferrous Sulfate 324 MG TABLET.DR PO (16:11)
--- NOTE | 2023-11-19 16:29 | PC.NURSE ---
Assuming care of patient from YANETH Carrillo @16:30.
[2023-11-19] MEDS: Melatonin 3 MG TABLET 6 MG PO (20:21)
[2023-11-20] VITALS (10 sets, daily range): BP systolic 80–111; BP diastolic 50–60; PULSE 49–85; RESP 16–20; TEMP 36.1–36.3; O2SAT 93–98
[2023-11-20] MEDS: oxyCODONE HCl Immed Release 5 MG TABLET PO ×4 (00:43→18:19)
[2023-11-20] MEDS: 0.9 % Sodium Chloride Flush 3 ML SYRINGE IVFLUSH ×3 (00:44→16:29)
[2023-11-20] MEDS: Morphine Sulfate 4 MG/ML CARTRIDGE IVPUSH ×4 (03:17→22:40)
[2023-11-20] MEDS: cefTRIAXone sodium 2 GM in 0.9 % Sodium Chloride 50 ML IV ×2 (05:17→18:58)
[2023-11-20] MEDS: Omeprazole 20 MG CAPSULE.DR PO ×2 (05:17→16:26)
[2023-11-20] MEDS: guaiFENesin LA 600 MG TAB.ER.12H PO ×2 (09:23→20:44)
[2023-11-20] MEDS: Acetaminophen 325 MG TABLET 975 MG PO ×3 (09:23→18:51)
[2023-11-20] MEDS: Doxycycline Monohydrate 100 MG CAPSULE PO ×2 (09:23→20:44)
[2023-11-20] MEDS: Apixaban 5 MG TABLET 10 MG PO ×2 (09:24→20:44)
[2023-11-20] MEDS: Ibuprofen 400 MG TABLET PO ×3 (09:24→18:50)
[2023-11-20] MEDS: Ferrous Sulfate 324 MG TABLET.DR PO ×2 (09:24→18:58)
[2023-11-20] MEDS: methADONE HCl 20 MG/2 ML ORAL.CONC 75 MG PO (09:26)
--- NOTE | 2023-11-20 09:55 | MHC.RECOVRN ---
Pts referral sent to [facility] with request to begin dosing 11/21. CM aware.
--- NOTE | 2023-11-20 11:54 | HO.PM.IMPN ---
Subjective Subjective Date of Service: 11/20/23 Interval History: seen and evaluated right hip pain partially controlled no other events Review of Systems Review of Systems: Yes all other systems are reviewed and are negative Physical Exam Vital Signs: Vital Signs: Last Vital Signs Temp 97.0 F 11/20/23 07:06 Pulse 85 11/20/23 07:06 Resp 16 11/20/23 07:06 BP 100/57 L 11/20/23 07:06 Pulse Ox 95 11/20/23 07:06 O2 Del Method Nasal Cannula 11/20/23 07:06 O2 Flow Rate 2 11/20/23 07:06 BMI result Body Mass Index 26.3 Const: Other: Constitutional : interactive, not in distress Cardiovascular : no JVP, no lower extremity edema Respiratory : bilateral chest movement, not in resp distress , on O2 supplement Gastrointestinal: soft, lax, Non tender Skin : Warm, Dry Neurological : Alert & oriented , No focal deficit Skeletal: pain in right hip with movement, no redness or swelling in the hip Objective Data Active Medications Acetaminophen (Acetaminophen 325 Mg Tablet) 975 mg PO TIDWM [facility] Last Admin: 11/20/23 09:23 Dose: 975 mg Documented By: KAMILLE Albuterol/Ipratropium (Albuterol/Iprat 2.5/0.5mg 3 Ml Ampul.Neb) 3 ml INHALE RQ6H WHILE AWAKE [facility] Last Admin: 11/20/23 07:50 Dose: Not Given Documented By: FER Non-Admin Reason: Patient Refused Amlodipine Besylate (Amlodipine Besylate 5 Mg Tablet) 5 mg PO DAILY [facility]; Protocol Last Admin: 11/17/23 09:11 Dose: 5 mg Documented By: ZACKARY Apixaban (Apixaban 5 Mg Tablet) 10 mg PO BID [facility] Stop: 11/22/23 21:01 Last Admin: 11/20/23 09:24 Dose: 10 mg Documented By: KAMILLE Calcium Carbonate (Calcium Carbonate 750 Mg Tab.Chew) 750 mg PO Q4H PRN PRN Reason: Heartburn Doxycycline Monohydrate (Doxycycline Monohydrate 100 Mg Capsule) 100 mg PO BID [facility] Last Admin: 11/20/23 09:23 Dose: 100 mg Documented By: KAMILLE Ferrous Sulfate (Ferrous Sulfate 324 Mg Tablet.Dr) 324 mg PO BIDWM [facility] Last Admin: 11/20/23 09:24 Dose: 324 mg Documented By: KAMILLE Guaifenesin (Guaifenesin La 600 Mg Tab.Er.12h) 600 mg PO BID [facility] Last Admin: 11/20/23 09:23 Dose: 600 mg Documented By: KAMILLE Hydroxyzine HCl (Hydroxyzine Hcl 25 Mg Tablet) 25 mg PO Q8H PRN PRN Reason: anxiety/restlessness Last Admin: 11/18/23 14:18 Dose: 25 mg Documented By: RUPINDER Ceftriaxone Sodium 2 gm/ (Sodium Chloride) 50 mls @ 100 mls/hr IV Q12H [facility] Last Admin: 11/20/23 05:17 Dose: 100 mls/hr Documented By: TRES Ibuprofen (Ibuprofen 400 Mg Tablet) 400 mg PO TIDWM [facility] Stop: 11/21/23 11:59 Last Admin: 11/20/23 09:24 Dose: 400 mg Documented By: KAMILLE Lisinopril (Lisinopril 10 Mg Tablet) 10 mg PO DAILY [facility]; Protocol Last Admin: 11/19/23 08:10 Dose: 10 mg Documented By: DAMIEN Magnesium Hydroxide (Milk Of Magnesia 30 Ml Oral.Susp) 30 ml PO DAILY PRN PRN Reason: Constipation Melatonin (Melatonin 3 Mg Tablet) 6 mg PO BEDTIME PRN PRN Reason: Insomnia Last Admin: 11/19/23 20:21 Dose: 6 mg Documented By: TRES Methadone HCl (Methadone Hcl 20 Mg/2 Ml Oral.Conc) 75 mg PO DAILY [facility] Last Admin: 11/20/23 09:26 Dose: 75 mg Documented By: KAMILLE Metoprolol Tartrate (Metoprolol Tartrate 12.5 Mg Halftab) 12.5 mg PO BID [facility]; Protocol Last Admin: 11/19/23 20:14 Dose: 12.5 mg Documented By: TRES Morphine Sulfate (Morphine Sulfate 4 Mg/Ml Cartridge) 4 mg IVPUSH Q6H PRN; Protocol PRN Reason: Pain, Severe (Pain Scale 7-10) Last Admin: 11/20/23 09:47 Dose: 4 mg Documented By: JUAN Nicotine (Nicotine 21 Mg Patch.Td24) 21 mg TRANSDERMA DAILY [facility] Last Admin: 11/20/23 09:30 Dose: Not Given Documented By: KAMILLE Non-Admin Reason: Patient Refused Omeprazole (Omeprazole 20 Mg Capsule.) 20 mg PO BID@0630,1630 [facility] Last Admin: 11/20/23 05:17 Dose: 20 mg Documented By: TRES Ondansetron HCl (Ondansetron Hcl 4 Mg/2 Ml Vial) 4 mg IVPUSH Q8H PRN PRN Reason: Nausea and Vomiting Oxycodone HCl (Oxycodone Hcl Immed Release 5 Mg Tablet) 5 mg PO Q4H PRN PRN Reason: Pain, Moderate(Pain Scale 4-6) Last Admin: 11/20/23 05:17 Dose: 5 mg Documented By: TRES Sodium Chloride (0.9 % Sodium Chloride Flush 3 Ml Syringe) 3 ml IVFLUSH QSHIFT [facility] Last Admin: 11/20/23 09:24 Dose: 3 ml Documented By: KAMILLE Labs 11/19/23 06:10 11/19/23 06:10 Assessment and Plan (1) Bacterial infection due to streptococcus, group A: Status: Acute (2) Intractable pain: Status: Acute (3) Osteoarthritis of right hip: Status: Acute Plan 48-year-old female with pertinent history of tobacco use disorder, IV polysubstance use disorder who was brought to the emergency department after [place] near the train track and screaming for help, complaining of leg pain. Intractable Right hip pain 2/2 Severe OA Ortho consult advises joint aspirate, IR attempted aspirate on 11/13, nothing came out PRN Morphine and Oxycodone (titrate down as tolerated) Tylenol, Ibuprofen and Omeprazole PT eval rec SNF Discuss with ORthopedic for OP plans: injection vs Hip replacement as outpatient. she needs to be off drugs 3-6 months before any surgical plans IR can do hip injection as OP once she is done with antibiotics. Acute DVT of right lower extremity Unprovoked. CTA 11/13, no PE DC Lovenox and transition to Eliquis Dr. Ivan Rucker, [facility] vascular surgery [facility] consulted>> no surgical intervention warranted. hematology consult for unprovoked DVT and adrenal mass, recommended Endocrine workup and Outpatient referral to director of entertainment. lung nodules that are below 1 cm and do not look suspicious. Alternatively, repeat CT chest/abdomen and pelvis in a few months to re-evaluate. Sepsis d/t strep Pyogenese bacteremia Initially was on Vanco and Ceftraixone, later changed to Ceftriaxone 2 gram/daily and 2 days of Clindamycin 600 q8 per ID recommendation. Continue Ceftriaxone for now At Discharge: PO Ceftin 500 mg bid for total of 10 days antibiotics as Echo showed no endocarditis. Elevated BP likely unreated HTN BP is within normal. Norvasc and Lisinopril, continue on discharge Right adrenal nodule: >4cm and >10 HU. Obtaining DHEA-S, plasma metanephrine, PAC, renin aldosterone to rule out hormonal hypersecretion Will need further work up. Oncology consult = consider repeat imaging at later time and outpatient work up Microcytic anemia Likely chronic, above transfusion threshold, follow CBC acute Hypokalemia replaced and now normal Polysubstance IV drug use disorder: UDS positive for cocaine, fentanyl and opiates. Monitor for withdrawal refused clonidine, hydroxyzine increase methadone to 80, followed by addiction team Homelessness: Case management follow up for placement Tobacco use disorder: Nicotine patch while in the hospital. Counseled regarding cessation DVT prophylaxis: Audrey Will need overnight hospital stay for treatment of bacteremia, intractable pain requiring IV pain medicaitons pending better control of pain and need for placement Quality Stroke Does the patient have a stroke diagnosis?: No VTE Prior VTE?: No VTE Risk Level:: Medical - moderate - high VTE Device Contraindication: Treatment Not Indicated VTE Drug Contraindication: N/A - Med Ordered
[2023-11-20] MEDS: Melatonin 3 MG TABLET 6 MG PO (20:44)
[2023-11-21] VITALS (9 sets, daily range): BP systolic 98–107; BP diastolic 48–65; PULSE 70–89; RESP 16–20; TEMP 36.1–36.4; O2SAT 95–99
[2023-11-21] MEDS: oxyCODONE HCl Immed Release 5 MG TABLET PO ×3 (01:08→19:00)
[2023-11-21] MEDS: 0.9 % Sodium Chloride Flush 3 ML SYRINGE IVFLUSH ×3 (01:09→18:16)
[2023-11-21] MEDS: Morphine Sulfate 4 MG/ML CARTRIDGE IVPUSH ×2 (05:19→12:27)
[2023-11-21] MEDS: Omeprazole 20 MG CAPSULE.DR PO ×2 (05:20→18:11)
[2023-11-21] MEDS: cefTRIAXone sodium 2 GM in 0.9 % Sodium Chloride 50 ML IV ×2 (05:20→18:08)
[2023-11-21] MEDS: methADONE HCl 20 MG/2 ML ORAL.CONC 80 MG PO (08:56)
[2023-11-21] MEDS: Apixaban 5 MG TABLET 10 MG PO ×2 (08:59→20:35)
[2023-11-21] MEDS: Ibuprofen 400 MG TABLET PO (08:59)
[2023-11-21] MEDS: Acetaminophen 325 MG TABLET 975 MG PO ×3 (09:00→18:11)
[2023-11-21] MEDS: guaiFENesin LA 600 MG TAB.ER.12H PO ×2 (09:01→20:33)
[2023-11-21] MEDS: Doxycycline Monohydrate 100 MG CAPSULE PO ×2 (09:01→20:34)
[2023-11-21] MEDS: Ferrous Sulfate 324 MG TABLET.DR PO ×2 (09:02→18:20)
--- NOTE | 2023-11-21 09:12 | MHC.RECOVRN ---
Pts referral sent to [facility] in [place]. CM aware.
--- NOTE | 2023-11-21 10:55 | MHC.CM.PN ---
EMR REVIEWED, CM CONTACTED [facility] THIS AM WHO REPORTS THEY ARE ON AN ADMISSIONS FREEZE, [facility] OFFERING AND HAVE GONE FOR AUTH/REFERRAL SENT TO [facility] FOR GUEST DOSING, ANTIC PT WILL DC BY TOMORROW 11/21, CM WILL CONT TO FOLLOW.
--- NOTE | 2023-11-21 11:21 | P.PNIM_ITS ---
Subjective Subjective Date of Service: 11/21/23 Interval History: seen and evaluated complaining of right hip pain and asking for pain medications no other events Review of Systems Review of Systems: Yes all other systems are reviewed and are negative Physical Exam 2 Vital Signs: Vital Signs: Last Vital Signs Temp 97.0 F 11/21/23 07:16 Pulse 89 11/21/23 07:16 Resp 16 11/21/23 07:16 BP 106/65 11/21/23 07:16 Pulse Ox 97 11/21/23 07:16 O2 Del Method Nasal Cannula 11/21/23 07:16 O2 Flow Rate 2 11/21/23 07:16 BMI result Body Mass Index 26.3 Const: Other: Constitutional : interactive, not in distress Cardiovascular : no JVP, no lower extremity edema Respiratory : bilateral chest movement, not in resp distress , on O2 supplement Gastrointestinal: soft, lax, Non tender Skin : Warm, Dry Neurological : Alert & oriented , No focal deficit Skeletal: pain in right hip with movement, no redness or swelling in the hip Objective Data Active Medications Acetaminophen (Acetaminophen 325 Mg Tablet) 975 mg PO TIDWM [facility] Last Admin: 11/21/23 09:00 Dose: 975 mg Documented By: JUAN Albuterol/Ipratropium (Albuterol/Iprat 2.5/0.5mg 3 Ml Ampul.Neb) 3 ml INHALE RQ6H WHILE AWAKE PRN PRN Reason: Shortness of Breath/Wheezing Amlodipine Besylate (Amlodipine Besylate 5 Mg Tablet) 5 mg PO DAILY [facility]; Protocol Last Admin: 11/17/23 09:11 Dose: 5 mg Documented By: ZACKARY Apixaban (Apixaban 5 Mg Tablet) 10 mg PO BID [facility] Stop: 11/22/23 21:01 Last Admin: 11/21/23 08:59 Dose: 10 mg Documented By: JUAN Calcium Carbonate (Calcium Carbonate 750 Mg Tab.Chew) 750 mg PO Q4H PRN PRN Reason: Heartburn Doxycycline Monohydrate (Doxycycline Monohydrate 100 Mg Capsule) 100 mg PO BID [facility] Last Admin: 11/21/23 09:01 Dose: 100 mg Documented By: JUAN Ferrous Sulfate (Ferrous Sulfate 324 Mg Tablet.) 324 mg PO BIDWM [facility] Last Admin: 11/21/23 09:02 Dose: 324 mg Documented By: JUAN Guaifenesin (Guaifenesin La 600 Mg Tab.Er.12h) 600 mg PO BID [facility] Last Admin: 11/21/23 09:01 Dose: 600 mg Documented By: JUAN Hydroxyzine HCl (Hydroxyzine Hcl 25 Mg Tablet) 25 mg PO Q8H PRN PRN Reason: anxiety/restlessness Last Admin: 11/18/23 14:18 Dose: 25 mg Documented By: RUPINDER Ceftriaxone Sodium 2 gm/ (Sodium Chloride) 50 mls @ 100 mls/hr IV Q12H [facility] Last Infusion: 11/21/23 06:29 Dose: Infused Documented By: TRES Ibuprofen (Ibuprofen 400 Mg Tablet) 400 mg PO TIDWM [facility] Stop: 11/21/23 11:59 Last Admin: 11/21/23 08:59 Dose: 400 mg Documented By: JUAN Lisinopril (Lisinopril 10 Mg Tablet) 10 mg PO DAILY [facility]; Protocol Last Admin: 11/19/23 08:10 Dose: 10 mg Documented By: DAMIEN Magnesium Hydroxide (Milk Of Magnesia 30 Ml Oral.Susp) 30 ml PO DAILY PRN PRN Reason: Constipation Melatonin (Melatonin 3 Mg Tablet) 6 mg PO BEDTIME PRN PRN Reason: Insomnia Last Admin: 11/20/23 20:44 Dose: 6 mg Documented By: TRES Methadone HCl (Methadone Hcl 20 Mg/2 Ml Oral.Conc) 80 mg PO DAILY [facility] Last Admin: 11/21/23 08:56 Dose: 80 mg Documented By: JUAN Metoprolol Tartrate (Metoprolol Tartrate 12.5 Mg Halftab) 12.5 mg PO BID [facility]; Protocol Last Admin: 11/19/23 20:14 Dose: 12.5 mg Documented By: TRES Morphine Sulfate (Morphine Sulfate 4 Mg/Ml Cartridge) 4 mg IVPUSH Q6H PRN; Protocol PRN Reason: Pain, Severe (Pain Scale 7-10) Last Admin: 11/21/23 05:19 Dose: 4 mg Documented By: TRES Nicotine (Nicotine 21 Mg Patch.Td24) 21 mg TRANSDERMA DAILY [facility] Last Admin: 11/21/23 09:03 Dose: Not Given Documented By: JUAN Non-Admin Reason: Patient Refused Omeprazole (Omeprazole 20 Mg Rolf.) 20 mg PO BID@0630,1630 [facility] Last Admin: 11/21/23 05:20 Dose: 20 mg Documented By: TRES Ondansetron HCl (Ondansetron Hcl 4 Mg/2 Ml Vial) 4 mg IVPUSH Q8H PRN PRN Reason: Nausea and Vomiting Oxycodone HCl (Oxycodone Hcl Immed Release 5 Mg Tablet) 5 mg PO Q4H PRN PRN Reason: Pain, Moderate(Pain Scale 4-6) Last Admin: 11/21/23 08:58 Dose: 5 mg Documented By: JUAN Sodium Chloride (0.9 % Sodium Chloride Flush 3 Ml Syringe) 3 ml IVFLUSH QSHIFT [facility] Last Admin: 11/21/23 09:02 Dose: 3 ml Documented By: JUAN Labs 11/19/23 06:10 11/19/23 06:10 Assessment and Plan (1) Bacterial infection due to streptococcus, group A: Status: Acute (2) Intractable pain: Status: Acute Plan 48-year-old female with pertinent history of tobacco use disorder, IV polysubstance use disorder who was brought to the emergency department after [place] train track and screaming for help, complaining of leg pain. Intractable Right hip pain 2/2 Severe OA Ortho consult advises joint aspirate, IR attempted aspirate on 11/13, nothing came out PRN Morphine and Oxycodone (titrate down as tolerated) Tylenol, Ibuprofen and Omeprazole PT eval rec SNF Discuss with ORthopedic for OP plans: injection vs Hip replacement as outpatient. she needs to be off drugs 3-6 months before any surgical plans IR can do hip injection as OP once she is done with antibiotics. Acute DVT of right lower extremity Unprovoked. CTA 11/13, no PE DC Lovenox and transition to Eliquis Dr. Ivan Rucker, [facility] vascular surgery [facility] consulted>> no surgical intervention warranted. hematology consult for unprovoked DVT and adrenal mass, recommended Endocrine workup and Outpatient referral to equipment installation professional. lung nodules that are below 1 cm and do not look suspicious. Alternatively, repeat CT chest/abdomen and pelvis in a few months to re-evaluate. Sepsis d/t strep Pyogenese bacteremia Initially was on Vanco and Ceftraixone, later changed to Ceftriaxone 2 gram/daily and 2 days of Clindamycin 600 q8 per ID recommendation. Continue Ceftriaxone for now At Discharge: PO Ceftin 500 mg bid for total of 10 days antibiotics as Echo showed no endocarditis. Elevated BP likely unreated HTN BP is within normal. Norvasc and Lisinopril, continue on discharge Right adrenal nodule: >4cm and >10 HU. Obtaining DHEA-S, plasma metanephrine, PAC, renin aldosterone to rule out hormonal hypersecretion Will need further work up. Oncology consult = consider repeat imaging at later time and outpatient work up Microcytic anemia Likely chronic, above transfusion threshold, follow CBC acute Hypokalemia replaced and now normal Polysubstance IV drug use disorder: UDS positive for cocaine, fentanyl and opiates. refused clonidine, hydroxyzine increase methadone to 80, followed by addiction team Homelessness: Case management follow up for placement Tobacco use disorder: Nicotine patch while in the hospital. Counseled regarding cessation DVT prophylaxis: Audrey Will need overnight hospital stay for treatment of bacteremia, intractable pain requiring IV pain medicaitons pending better control of pain and need for placement Quality Stroke Does the patient have a stroke diagnosis?: No VTE Prior VTE?: No VTE Risk Level:: Medical - moderate - high VTE Device Contraindication: Treatment Not Indicated VTE Drug Contraindication: N/A - Med Ordered
[2023-11-21] MEDS: Melatonin 3 MG TABLET 6 MG PO (20:34)
[2023-11-21] MEDS: Morphine Sulfate Immed Release 15 MG TABLET PO (20:34)
[2023-11-22] VITALS (8 sets, daily range): BP systolic 101–119; BP diastolic 54–64; PULSE 69–85; RESP 18–20; TEMP 36.4–37; O2SAT 94–97
[2023-11-22] MEDS: Morphine Sulfate Immed Release 15 MG TABLET PO ×6 (01:07→23:40)
--- NOTE | 2023-11-22 06:24 | PC.NURSE ---
Demanding and non compliant with care. Refused IV access.Refused blood draw and am medication. Cursed profanity at administrative underwriter. Frequently requesting pain medication before its due. Educated on pain meds and frequency of medication. Verbalized understanding. Dr Dexter de la rosa hospitalist make aware.
[2023-11-22] MEDS: Doxycycline Monohydrate 100 MG CAPSULE PO ×2 (09:38→19:25)
[2023-11-22] MEDS: Apixaban 5 MG TABLET 10 MG PO ×2 (09:39→19:24)
[2023-11-22] MEDS: guaiFENesin LA 600 MG TAB.ER.12H PO ×2 (09:39→22:29)
[2023-11-22] MEDS: Ferrous Sulfate 324 MG TABLET.DR PO ×2 (09:40→16:46)
[2023-11-22] MEDS: methADONE HCl 20 MG/2 ML ORAL.CONC 80 MG PO (09:40)
[2023-11-22] MEDS: Acetaminophen 325 MG TABLET 975 MG PO ×3 (09:40→16:46)
--- NOTE | 2023-11-22 09:56 | PM.DS ---
DS: Providers Provider Date of Service: 11/22/23 Date of admission: 11/12/23 00:54 Primary care physician: None Physician Consults: 11/12/23 00:58 Addiction Medicine Routine Consulting Provider: Addiction Covering Reason for consultation: cocaine and opioid use disorder 11/12/23 12:00 Consult to Infectious Diseases Routine Consulting Provider: [facility] Reason for consultation: Bacteremia 11/13/23 12:59 Consult to Hematology / Oncology Routine Consulting Provider: [facility] Oncology/Hematology Reason for consultation: Unprovoked DVts and adrenal mass Has provider been notified: No 11/14/23 08:18 Consult to Orthopedics Routine Consulting Provider: [facility]opedic [facility] Reason for consultation: R hip pain, severe OA with joint effusion Has provider been notified: No DS: Diagnosis Discharge Diagnosis (1) Bacterial infection due to streptococcus, group A: Status: Acute (2) Intractable pain: Status: Acute (3) Osteoarthritis of right hip: Status: Acute (4) Adrenal nodule: Status: Acute (5) Opioid use disorder: Status: Acute (6) IVDU (intravenous drug user): Status: Acute (7) Acute deep vein thrombosis (DVT) of right lower extremity: Status: Acute DS: Summary Hospital Course Hospital Course: Admission note HPI This is a 48-year-old female with pertinent history of tobacco use disorder, IV polysubstance use disorder who was brought to the emergency department after [place] near the train track and screaming for help, complaining of leg pain. As per EMS, she was found by the police who called EMS. Patient states she is homeless in admits to using IV drugs. She used on the day of presentation. Patient states he was screaming due to her leg pain that has been ongoing for a while. Patient states she has never had such pain before. Denies fever or chills. No chest discomfort, palpitations, cough, shortness of breath, abdominal pain, changes in urinary or bowel habits. Patient denies taking any prescription medications. In the emergency department, imaging with acute DVT of the right lower extremity. [facility] vascular surgery was consulted who recommended admission with anticoagulation, no surgical intervention warranted at this time. Patient also with fever 101.5 and WBC 21 with elevated procalcitonin in the ER. She was given therapeutic Lovenox and empiric IV antibiotics. Hospital course - Intractable Right hip pain secondary to Severe OA Ortho consult advises joint aspirate, IR attempted aspirate on 11/13, nothing came out PRN Morphine and Oxycodone (titrate down as tolerated) Tylenol, Ibuprofen and Omeprazole PT eval rec SNF Discuss with ORthopedic for OP plans: injection vs Hip replacement as outpatient. she needs to be off drugs 3-6 months before any surgical plans IR can do hip injection as OP once she is done with antibiotics. Acute DVT of right lower extremity Unprovoked. CTA 11/13, no PE DC Lovenox and transition to Eliquis Dr. Ivan Rucker, [facility] vascular surgery [facility] consulted>> no surgical intervention warranted. hematology consult for unprovoked DVT and adrenal mass, recommended Endocrine workup and Outpatient referral to dairy management specialist. lung nodules that are below 1 cm and do not look suspicious. Alternatively, repeat CT chest/abdomen and pelvis in a few months to re-evaluate. Sepsis d/t strep Pyogenese bacteremia Initially was on Vanco and Ceftraixone, later changed to Ceftriaxone 2 gram/daily and 2 days of Clindamycin 600 q8 per ID recommendation. Continue Ceftriaxone for now At Discharge: PO Ceftin 500 mg bid for total of 10 days antibiotics as Echo showed no endocarditis. Elevated BP likely unreated HTN BP is within normal. Norvasc and Lisinopril, continue on discharge Right adrenal nodule: >4cm and >10 HU. Obtaining DHEA-S, plasma metanephrine, PAC, renin aldosterone to rule out hormonal hypersecretion Will need further work up. Oncology consult = consider repeat imaging at later time and outpatient work up Microcytic anemia Likely chronic, above transfusion threshold, follow CBC acute Hypokalemia replaced and now normal Polysubstance IV drug use disorder: UDS positive for cocaine, fentanyl and opiates. refused clonidine, hydroxyzine increase methadone to 80, followed by addiction team Homelessness: Case management follow up for placement Tobacco use disorder: Nicotine patch while in the hospital. Counseled regarding cessation Discharge plan Continue 10 more days of Ceftin Continue Eliquis 5 mg twice daily for 3 months Iron supplement Continue to follow with Methadone clinic Tylenol, Ibuprofen and Oxycodone for pain control Follow up with Interventional radiology as outpatient for Right hip steroid injection To follow with Dr Jose from Orthopedic as outpatient in 3 months to start arrangements for hip replacement surgery. you need to be clean of drugs according to the orthopedic team for at least 3 months. Physical therapy as tolerated Physical Exam Vital Signs: Vital Signs: Last Vital Signs Temp 98.6 F 11/22/23 07:21 Pulse 82 11/22/23 07:21 Resp 18 11/22/23 07:21 BP 119/61 11/22/23 07:21 Pulse Ox 97 11/22/23 07:21 O2 Del Method Nasal Cannula 11/22/23 07:21 O2 Flow Rate 2 11/22/23 07:21 BMI result Body Mass Index 26.3 Discharge Plan Discharge Anticipated Discharge Date/Time: 11/22/23 11:36 Patient Disposition: Xfer SNF Discharge Diagnosis: Bacteremia group A streptococcus Acute DVT Referrals: Berny Ramírez MD [Physician] - 2 Weeks ( Evaluation for steroid injection to Right hip for severe osteoarthritis with pain and restriction Until she can follow with Orthopedic for surgical replacement of the hip. ) Physician,None [Primary Care Provider] - 1 Week Discharge Medications: New nicotine 21 mg/24 hr Patch 24 Hour 21 mg transdermal DAILY Qty: 30 0RF Eliquis 5 mg Tablet 5 mg PO BID Qty: 120 0RF acetaminophen 325 mg Tablet 975 mg PO TIDWM Qty: 90 0RF omeprazole 20 mg Capsule,Delayed Release(Dr/Ec) 20 mg PO DAILY Qty: 90 0RF methadone [Methadose] 10 mg/mL Concentrate 80 mg PO DAILY Qty: 8 0RF Rx Instructions: Partial Fill upon patient request. oxycodone 5 mg Tablet 5 mg PO Q4-6H PRN (Reason: Pain, Moderate(Pain Scale 4-6)) Qty: 24 0RF Rx Instructions: Partial Fill upon patient request. ferrous sulfate 324 mg (65 mg iron) Tablet,Delayed Release (Dr/Ec) 324 mg PO DAILY Qty: 90 0RF ibuprofen 400 mg tablet 400 mg PO TIDWM Qty: 30 0RF metoprolol tartrate 25 mg tablet 12.5 mg PO BID Qty: 60 0RF hydroxyzine HCl 25 mg Tablet 25 mg PO Q8H PRN (Reason: Anxiety/Restlessness) Qty: 30 0RF cefuroxime axetil 500 mg tablet 500 mg PO BID Qty: 20 0RF Discharge Orders: Discharge Order (Routine); Ordered 11/22/23 Ordered By: Allison Gunter Diet: Advance to usual diet Activity on Discharge: As tolerated Stand Alone Forms: Patient Portal Discharge page Print Language: Iraqi Care Plan Goals: Continue 10 more days of Ceftin Continue Eliquis 5 mg twice daily for 3 months Iron supplement Continue to follow with Methadone clinic Tylenol, Ibuprofen and Oxycodone for pain control Follow up with Interventional radiology as outpatient for Right hip steroid injection To follow with Dr Jose from Orthopedic as outpatient in 3 months to start arrangements for hip replacement surgery. you need to be clean of drugs according to the orthopedic team for at least 3 months. Physical therapy as tolerated Health Concerns: Read below Plan of Treatment: Read below Assessment: Read below
--- NOTE | 2023-11-22 11:30 | MHC.RECOVRN ---
Met with pt to sign NANCY between [facility] and [facility]. Pt declines to sign, reports she is declining placement in [place] as it is too far away. Pt reports she is working with [facility] to secure a hotel room. Pt reports she has phone intake with Mary Grace from [facility] at 1 pm and will know shortly after if [facility] is able to fund the room. Pt reports she will discharge to the community either this evening or tomorrow. Pt reports she is able to walk with a walker and feels comfortable with her plan. Denies questions or concerns for t/w at this time.
--- NOTE | 2023-11-22 11:56 | P.PNIM_ITS ---
Subjective Subjective Date of Service: 11/22/23 Interval History: seen and evaluated overall better control of pain but she continues to complain of right hip pain and asking for pain medications no other events Review of Systems Review of Systems: Yes all other systems are reviewed and are negative Physical Exam 2 Vital Signs: Vital Signs: Last Vital Signs Temp 97.6 F 11/22/23 11:29 Pulse 69 11/22/23 11:29 Resp 18 11/22/23 11:29 BP 101/57 L 11/22/23 11:29 Pulse Ox 94 11/22/23 11:29 O2 Del Method Room Air 11/22/23 11:29 O2 Flow Rate 2 11/22/23 07:21 BMI result Body Mass Index 26.3 Const: Other: Constitutional : interactive, not in distress Cardiovascular : no JVP, no lower extremity edema Respiratory : bilateral chest movement, not in resp distress , on O2 supplement Gastrointestinal: soft, lax, Non tender Skin : Warm, Dry Neurological : Alert & oriented , No focal deficit Skeletal: pain in right hip with movement, no redness or swelling in the hip Objective Data Active Medications Acetaminophen (Acetaminophen 325 Mg Tablet) 975 mg PO TIDWM [facility] Last Admin: 11/22/23 09:40 Dose: 975 mg Documented By: PIPE Albuterol/Ipratropium (Albuterol/Iprat 2.5/0.5mg 3 Ml Ampul.Neb) 3 ml INHALE RQ6H WHILE AWAKE PRN PRN Reason: Shortness of Breath/Wheezing Amlodipine Besylate (Amlodipine Besylate 5 Mg Tablet) 5 mg PO DAILY [facility]; Protocol Last Admin: 11/17/23 09:11 Dose: 5 mg Documented By: ZACKARY Apixaban (Apixaban 5 Mg Tablet) 10 mg PO BID [facility] Stop: 11/22/23 21:01 Last Admin: 11/22/23 09:39 Dose: 10 mg Documented By: PIPE Calcium Carbonate (Calcium Carbonate 750 Mg Tab.Chew) 750 mg PO Q4H PRN PRN Reason: Heartburn Doxycycline Monohydrate (Doxycycline Monohydrate 100 Mg Capsule) 100 mg PO BID [facility] Last Admin: 11/22/23 09:38 Dose: 100 mg Documented By: PIPE Ferrous Sulfate (Ferrous Sulfate 324 Mg Tablet.) 324 mg PO BIDWM [facility] Last Admin: 11/22/23 09:40 Dose: 324 mg Documented By: PIPE Guaifenesin (Guaifenesin La 600 Mg Tab.Er.12h) 600 mg PO BID [facility] Last Admin: 11/22/23 09:39 Dose: 600 mg Documented By: PIPE Hydroxyzine HCl (Hydroxyzine Hcl 25 Mg Tablet) 25 mg PO Q8H PRN PRN Reason: anxiety/restlessness Last Admin: 11/18/23 14:18 Dose: 25 mg Documented By: RUPINDER Ceftriaxone Sodium 2 gm/ (Sodium Chloride) 50 mls @ 100 mls/hr IV Q12H [facility] Last Admin: 11/22/23 07:30 Dose: Not Given Documented By: PIPE Non-Admin Reason: Pr is refusing IV access Lisinopril (Lisinopril 10 Mg Tablet) 10 mg PO DAILY [facility]; Protocol Last Admin: 11/19/23 08:10 Dose: 10 mg Documented By: DAMIEN Magnesium Hydroxide (Milk Of Magnesia 30 Ml Oral.Susp) 30 ml PO DAILY PRN PRN Reason: Constipation Melatonin (Melatonin 3 Mg Tablet) 6 mg PO BEDTIME PRN PRN Reason: Insomnia Last Admin: 11/21/23 20:34 Dose: 6 mg Documented By: TRES Methadone HCl (Methadone Hcl 20 Mg/2 Ml Oral.Conc) 80 mg PO DAILY [facility] Last Admin: 11/22/23 09:40 Dose: 80 mg Documented By: PIPE Metoprolol Tartrate (Metoprolol Tartrate 12.5 Mg Halftab) 12.5 mg PO BID [facility]; Protocol Last Admin: 11/19/23 20:14 Dose: 12.5 mg Documented By: TRES Morphine Sulfate (Morphine Sulfate Immed Release 15 Mg Tablet) 15 mg PO Q4H PRN PRN Reason: Pain, Severe (Pain Scale 7-10) Last Admin: 11/22/23 09:39 Dose: 15 mg Documented By: PIPE Nicotine (Nicotine 21 Mg Patch.Td24) 21 mg TRANSDERMA DAILY [facility] Last Admin: 11/22/23 09:38 Dose: Not Given Documented By: PIPE Non-Admin Reason: Patient Refused Omeprazole (Omeprazole 20 Mg Capsule.) 20 mg PO BID@0630,1630 [facility] Last Admin: 11/22/23 06:35 Dose: Not Given Documented By: TRES Non-Admin Reason: Patient Refused Ondansetron HCl (Ondansetron Hcl 4 Mg/2 Ml Vial) 4 mg IVPUSH Q8H PRN PRN Reason: Nausea and Vomiting Oxycodone HCl (Oxycodone Hcl Immed Release 5 Mg Tablet) 5 mg PO Q4H PRN PRN Reason: Pain, Moderate(Pain Scale 4-6) Last Admin: 11/21/23 19:00 Dose: 5 mg Documented By: JUAN Sodium Chloride (0.9 % Sodium Chloride Flush 3 Ml Syringe) 3 ml IVFLUSH QSHIFT [facility] Last Admin: 11/22/23 09:38 Dose: 3 ml Documented By: PIPE Labs 11/19/23 06:10 11/19/23 06:10 Assessment and Plan (1) Bacterial infection due to streptococcus, group A: Status: Acute (2) Intractable pain: Status: Acute (3) Osteoarthritis of right hip: Status: Acute Plan 48-year-old female with pertinent history of tobacco use disorder, IV polysubstance use disorder who was brought to the emergency department [place] train track and screaming for help, complaining of leg pain. Intractable Right hip pain 2/2 Severe OA Ortho consult advises joint aspirate, IR attempted aspirate on 11/13, nothing came out PRN Morphine and Oxycodone (titrate down as tolerated) Tylenol, Ibuprofen and Omeprazole PT eval rec SNF Discuss with ORthopedic for OP plans: injection vs Hip replacement as outpatient. she needs to be off drugs 3-6 months before any surgical plans IR can do hip injection as OP once she is done with antibiotics. (referral placed on discharge papers) Acute DVT of right lower extremity Unprovoked. CTA 11/13, no PE DC Lovenox and transition to Eliquis Dr. Ivan Rucker, [facility] vascular surgery [facility] consulted>> no surgical intervention warranted. hematology consult for unprovoked DVT and adrenal mass, recommended Endocrine workup and Outpatient referral to electrical line worker. lung nodules that are below 1 cm and do not look suspicious. Alternatively, repeat CT chest/abdomen and pelvis in a few months to re-evaluate. Sepsis d/t strep Pyogenese bacteremia Initially was on Vanco and Ceftraixone, later changed to Ceftriaxone 2 gram/daily and 2 days of Clindamycin 600 q8 per ID recommendation. Continue Ceftriaxone for now At Discharge: PO Ceftin 500 mg bid for total of 10 days antibiotics as Echo showed no endocarditis. Elevated BP likely unreated HTN BP is within normal off medications for few days. DC Norvasc and Lisinopril Metoprolol started small dose of Bigeminy and PACs Right adrenal nodule: >4cm and >10 HU. Obtaining DHEA-S, plasma metanephrine, PAC, renin aldosterone to rule out hormonal hypersecretion Will need further work up. Oncology consult = consider repeat imaging at later time and outpatient work up Microcytic anemia Likely chronic, above transfusion threshold, follow CBC acute Hypokalemia replaced and now normal Polysubstance IV drug use disorder: UDS positive for cocaine, fentanyl and opiates. refused clonidine, hydroxyzine increase methadone to 80, followed by addiction team Homelessness: Case management follow up for placement . She refused going to SNF looking for fci placement. Tobacco use disorder: Nicotine patch while in the hospital. Counseled regarding cessation DVT prophylaxis: Audrey Will need overnight hospital stay for treatment of bacteremia, intractable pain requiring pain medicaitons pending better control of pain and proper placement Quality Stroke Does the patient have a stroke diagnosis?: No VTE Prior VTE?: No VTE Risk Level:: Medical - moderate - high VTE Device Contraindication: Treatment Not Indicated VTE Drug Contraindication: N/A - Med Ordered
--- NOTE | 2023-11-22 14:28 | MHC.CM.PN ---
Addendum entered by Bernie Mathis 11/22/23 16:13: CM contacted [facility] as a back up discharge plan, per Bridget at [facility] (friends of the homeless) the pt would need to be declined from a homeless halfway in order to qualify for one of their 10 beds which currently are all in use. Addendum entered by Bernie Montoyaerland 11/22/23 15:45: This CM spoke with Mary Grace from [facility] (outreach program) at [phone]. Per Mary Grace, they are not sure what the pt needs, but they will have a case packer do an assessment with her in person tomorrow as she is difficult to understand over the phone. Per Mary Grace she is not sure what the pts circumstances are but they work with homeless people and try to get them into shelters. Mary Grace suggested that the pt may be appropriate to go into their [facility] medical respite. This CM met with pt again to discuss the details of her discharge tomorrow. Pt was asked by this CM if she would want to go to a [facility] medical respite, and pt states she would not. Pt would like to do her [facility] intake tomorrow, then discharge with her son to go to the [facility]. Pt states her son will pick her up and transport her there. Original Note: Pt is now declining to go to [place] rehab, stating it is too far from her children who live in this area. Pt states she is working on getting into a [facility] hotel (diversion halfway) and states that [facility] will be here tomorrow at 1:30pm. This CM called [facility] to verify the information with them, awaiting return call.
--- NOTE | 2023-11-22 15:30 | PC.NURSE ---
Physical therapy has attempted to work with pt twice today and both times pt has refused and states that is a waste of time. Pt was educated on the importance of physical therapy. All other needs have been met at this time and the call wray is within pts reach.
[2023-11-22] MEDS: Omeprazole 20 MG CAPSULE.DR PO (16:46)
[2023-11-22] MEDS: Melatonin 3 MG TABLET 6 MG PO (19:25)
[2023-11-22] MEDS: hydrOXYzine HCL 25 MG TABLET PO (19:30)
[2023-11-23] VITALS (8 sets, daily range): BP systolic 111–137; BP diastolic 58–67; PULSE 84–100; RESP 18–20; TEMP 36.2–37.1; O2SAT 93–97
[2023-11-23] MEDS: Morphine Sulfate Immed Release 15 MG TABLET PO ×2 (03:40→08:00)
[2023-11-23] MEDS: methADONE HCl 20 MG/2 ML ORAL.CONC 80 MG PO (08:00)
[2023-11-23] MEDS: guaiFENesin LA 600 MG TAB.ER.12H PO ×2 (08:00→20:03)
[2023-11-23] MEDS: Acetaminophen 325 MG TABLET 975 MG PO ×3 (08:00→16:27)
[2023-11-23] MEDS: Ferrous Sulfate 324 MG TABLET.DR PO ×2 (08:00→16:27)
[2023-11-23] MEDS: Apixaban 5 MG TABLET PO ×2 (08:00→20:04)
[2023-11-23] MEDS: Doxycycline Monohydrate 100 MG CAPSULE PO ×2 (08:00→20:03)
[2023-11-23] MEDS: oxyCODONE HCl Immed Release 5 MG TABLET PO ×4 (10:20→23:24)
--- NOTE | 2023-11-23 11:37 | PM.DS ---
DS: Providers Provider Date of Service: 11/23/23 Date of admission: 11/12/23 00:54 Date of discharge: 11/23/23 Primary care physician: None Physician Consults: 11/12/23 00:58 Addiction Medicine Routine Consulting Provider: Addiction Covering Reason for consultation: cocaine and opioid use disorder 11/12/23 12:00 Consult to Infectious Diseases Routine Consulting Provider: [facility] Reason for consultation: Bacteremia 11/13/23 12:59 Consult to Hematology / Oncology Routine Consulting Provider: [facility] Oncology/Hematology Reason for consultation: Unprovoked DVts and adrenal mass Has provider been notified: No 11/14/23 08:18 Consult to Orthopedics Routine Consulting Provider: [facility] Orthopedic Surgeons Reason for consultation: R hip pain, severe OA with joint effusion Has provider been notified: No Attending physician on discharge: Abner Paul Discharging clinician: Brielle Walker DS: Diagnosis Discharge Diagnosis (1) Bacterial infection due to streptococcus, group A: Status: Acute (2) Intractable pain: Status: Acute (3) Osteoarthritis of right hip: Status: Acute DS: Summary Hospital Course Hospital Course: Admission note HPI This is a 48-year-old female with pertinent history of tobacco use disorder, IV polysubstance use disorder who was brought to the emergency department after she was found lying near the train track and screaming for help, complaining of leg pain. As per EMS, she was found by the police who called EMS. Patient states she is homeless in admits to using IV drugs. She used on the day of presentation. Patient states he was screaming due to her leg pain that has been ongoing for a while. Patient states she has never had such pain before. Denies fever or chills. No chest discomfort, palpitations, cough, shortness of breath, abdominal pain, changes in urinary or bowel habits. Patient denies taking any prescription medications. In the emergency department, imaging with acute DVT of the right lower extremity. [facility] vascular surgery was consulted who recommended admission with anticoagulation, no surgical intervention warranted at this time. Patient also with fever 101.5 and WBC 21 with elevated procalcitonin in the ER. She was given therapeutic Lovenox and empiric IV antibiotics. Hospital course - Intractable Right hip pain secondary to Severe OA Ortho consult advises joint aspirate, IR attempted aspirate on 11/13, nothing came out PRN Morphine and Oxycodone (titrate down as tolerated) Tylenol, Ibuprofen and Omeprazole PT eval rec SNF Discuss with ORthopedic for OP plans: injection vs Hip replacement as outpatient. she needs to be off drugs 3-6 months before any surgical plans IR can do hip injection as OP once she is done with antibiotics. Acute DVT of right lower extremity Unprovoked. CTA 11/13, no PE DC Lovenox and transition to Eliquis Dr. Ivan Rucker, [facility] vascular surgery [facility] consulted>> no surgical intervention warranted. hematology consult for unprovoked DVT and adrenal mass, recommended Endocrine workup and Outpatient referral to equity trader. lung nodules that are below 1 cm and do not look suspicious. Alternatively, repeat CT chest/abdomen and pelvis in a few months to re-evaluate. Sepsis d/t strep Pyogenese bacteremia Initially was on Vanco and Ceftraixone, later changed to Ceftriaxone 2 gram/daily and 2 days of Clindamycin 600 q8 per ID recommendation. Continue Ceftriaxone for now At Discharge: PO Ceftin 500 mg bid for total of 10 days antibiotics as Echo showed no endocarditis. Elevated BP likely unreated HTN BP is within normal. Norvasc and Lisinopril, continue on discharge Right adrenal nodule: >4cm and >10 HU. Obtaining DHEA-S, plasma metanephrine, PAC, renin aldosterone to rule out hormonal hypersecretion Will need further work up. Oncology consult = consider repeat imaging at later time and outpatient work up Microcytic anemia Likely chronic, above transfusion threshold, follow CBC acute Hypokalemia replaced and now normal Polysubstance IV drug use disorder: UDS positive for cocaine, fentanyl and opiates. refused clonidine, hydroxyzine increase methadone to 80, followed by addiction team Homelessness: Case management follow up for placement Tobacco use disorder: Nicotine patch while in the hospital. Counseled regarding cessation Discharge plan Continue 10 more days of Ceftin Continue Eliquis 5 mg twice daily for 3 months Iron supplement Continue to follow with Methadone clinic Tylenol, Ibuprofen and Oxycodone for pain control Follow up with Interventional radiology as outpatient for Right hip steroid injection To follow with Dr Jose from Orthopedic as outpatient in 3 months to start arrangements for hip replacement surgery. you need to be clean of drugs according to the orthopedic team for at least 3 months. Physical therapy as tolerated Time Attestation Discharge Coordination Time (in mins): 40 Quality: Safe Use of Opioids Does Pt have an Active Cancer Diagnosis on the Problem List?: No Quality: Stroke Does the patient have a stroke diagnosis?: No Physical Exam Vital Signs: Vital Signs: Last Vital Signs Temp 98.7 F 11/23/23 03:59 Pulse 94 11/23/23 03:59 Resp 18 11/23/23 03:59 BP 120/61 11/23/23 03:59 Pulse Ox 93 11/23/23 03:59 O2 Del Method Room Air 11/23/23 03:59 O2 Flow Rate 2 11/22/23 07:21 BMI result Body Mass Index 26.3 Const: General: alert and awake Nutritional Appearance: thin Orientation/consciousness: patient oriented x3 Resp: Effort & Inspection: normal respiratory effort, able to speak in complete sentences, no respiratory distress and no use of accessory muscles Cardio: Rate: regular rate GI: Inspection: No distended Palpation (GI): Soft to palpation and nontender Neuro: General: patient oriented x3 and No moves all extremities Discharge Plan Discharge Anticipated Discharge Date/Time: 11/23/23 11:36 Patient Disposition: Home, Self-Care Discharge Diagnosis: Bacteremia group A streptococcus Acute DVT Referrals: Berny Ramírez MD [Physician] - 2 Weeks ( Evaluation for steroid injection to Right hip for severe osteoarthritis with pain and restriction Until she can follow with Orthopedic for surgical replacement of the hip. ) Physician,None [Primary Care Provider] - 1 Week Discharge Medications: New nicotine 21 mg/24 hr Patch 24 Hour 21 mg transdermal DAILY Qty: 30 0RF Eliquis 5 mg Tablet 5 mg PO BID Qty: 120 0RF acetaminophen 325 mg Tablet 975 mg PO TIDWM Qty: 90 0RF omeprazole 20 mg Capsule,Delayed Release(Dr/Ec) 20 mg PO DAILY Qty: 90 0RF methadone [Methadose] 10 mg/mL Concentrate 80 mg PO DAILY Qty: 8 0RF Rx Instructions: Partial Fill upon patient request. oxycodone 5 mg Tablet 5 mg PO Q4-6H PRN (Reason: Pain, Moderate(Pain Scale 4-6)) Qty: 24 0RF Rx Instructions: Partial Fill upon patient request. ferrous sulfate 324 mg (65 mg iron) Tablet,Delayed Release (Dr/Ec) 324 mg PO DAILY Qty: 90 0RF ibuprofen 400 mg tablet 400 mg PO TIDWM Qty: 30 0RF metoprolol tartrate 25 mg tablet 12.5 mg PO BID Qty: 60 0RF hydroxyzine HCl 25 mg Tablet 25 mg PO Q8H PRN (Reason: Anxiety/Restlessness) Qty: 30 0RF cefuroxime axetil 500 mg tablet 500 mg PO BID Qty: 20 0RF Discharge Orders: Discharge Order (Routine); Ordered 11/22/23 Ordered By: Allison Gunter Diet: Advance to usual diet Activity on Discharge: As tolerated Stand Alone Forms: Patient Portal Discharge page Print Language: Belarusian Care Plan Goals: Continue 10 more days of Ceftin Continue Eliquis 5 mg twice daily for 3 months Iron supplement Continue to follow with Methadone clinic Tylenol, Ibuprofen and Oxycodone for pain control Follow up with Interventional radiology as outpatient for Right hip steroid injection To follow with Dr Jose from Orthopedic as outpatient in 3 months to start arrangements for hip replacement surgery. you need to be clean of drugs according to the orthopedic team for at least 3 months. Physical therapy as tolerated Health Concerns: Read below Plan of Treatment: Read below Assessment: Read below
--- NOTE | 2023-11-23 13:47 | MHC.RECOVRN ---
Pts referral sent to [facility]. CM aware.
--- NOTE | 2023-11-23 14:07 | MHC.CM.PN ---
Addendum entered by Yara Swann 11/23/23 14:50: CM met with pt to make sure her DC plan is safe. She said that her son is helping her and that she will not be on the street. He will pay for the motel until she can access her money. DC plan is for her to leave here via lyft car to [facility] to get a wheelchair, then to [facility] to meet with them to see how they can help. Her son with assist her with this. Original Note: Pt refused to go to [place] rehab, saying it is too far away from her family. She was going to meet with [facility] program person today, but they resceduled to tomorrow. Her plan is to go to [facility] to get a wheelchair, and then have her son bring her to a motel to stay. The [facility] program is to help her with services.
--- NOTE | 2023-11-23 15:18 | P.PNIM_ITS ---
Subjective Subjective Date of Service: 11/23/23 Interval History: Seen and examined this morning Follow-up for bacteremia Awake alert, frequently complaints of pain Review of Systems Review of Systems: Yes all other systems are reviewed and are negative Constitutional Constitutional: Denies chills and Denies fever(s) Physical Exam 2 Vital Signs: Vital Signs: Last Vital Signs Temp 97.5 F 11/23/23 12:00 Pulse 84 11/23/23 12:00 Resp 20 11/23/23 12:00 BP 113/63 11/23/23 12:00 Pulse Ox 93 11/23/23 12:00 O2 Del Method Room Air 11/23/23 12:00 O2 Flow Rate 2 11/22/23 07:21 BMI result Body Mass Index 26.3 Const: General: alert and awake Nutritional Appearance: average body habitus HEENT: Other: poor dentition Resp: Effort & Inspection: normal respiratory effort, able to speak in complete sentences, no respiratory distress and no use of accessory muscles Cardio: Rate: regular rate GI: Inspection: No distended Palpation (GI): Soft to palpation Neuro: Other: grossly nonfocal Objective Data Active Medications Acetaminophen (Acetaminophen 325 Mg Tablet) 975 mg PO TIDWM [facility] Last Admin: 11/23/23 12:23 Dose: 975 mg Documented By: ELVIS Albuterol/Ipratropium (Albuterol/Iprat 2.5/0.5mg 3 Ml Ampul.Neb) 3 ml INHALE RQ6H WHILE AWAKE PRN PRN Reason: Shortness of Breath/Wheezing Amlodipine Besylate (Amlodipine Besylate 5 Mg Tablet) 5 mg PO DAILY [facility]; Protocol Last Admin: 11/17/23 09:11 Dose: 5 mg Documented By: ZACKARY Apixaban (Apixaban 5 Mg Tablet) 5 mg PO BID [facility] Last Admin: 11/23/23 08:00 Dose: 5 mg Documented By: ELVIS Calcium Carbonate (Calcium Carbonate 750 Mg Tab.Chew) 750 mg PO Q4H PRN PRN Reason: Heartburn Doxycycline Monohydrate (Doxycycline Monohydrate 100 Mg Capsule) 100 mg PO BID [facility] Last Admin: 11/23/23 08:00 Dose: 100 mg Documented By: ELVIS Ferrous Sulfate (Ferrous Sulfate 324 Mg Tablet.) 324 mg PO BIDWM [facility] Last Admin: 11/23/23 08:00 Dose: 324 mg Documented By: ELVIS Guaifenesin (Guaifenesin La 600 Mg Tab.Er.12h) 600 mg PO BID [facility] Last Admin: 11/23/23 08:00 Dose: 600 mg Documented By: ELVIS Hydroxyzine HCl (Hydroxyzine Hcl 25 Mg Tablet) 25 mg PO Q8H PRN PRN Reason: anxiety/restlessness Last Admin: 11/22/23 19:30 Dose: 25 mg Documented By: GURINDER Ceftriaxone Sodium 2 gm/ (Sodium Chloride) 50 mls @ 100 mls/hr IV Q12H [facility] Last Admin: 11/23/23 05:08 Dose: Not Given Documented By: GURINDER Non-Admin Reason: No Access Lisinopril (Lisinopril 10 Mg Tablet) 10 mg PO DAILY [facility]; Protocol Last Admin: 11/19/23 08:10 Dose: 10 mg Documented By: DAMIEN Magnesium Hydroxide (Milk Of Magnesia 30 Ml Oral.Susp) 30 ml PO DAILY PRN PRN Reason: Constipation Melatonin (Melatonin 3 Mg Tablet) 6 mg PO BEDTIME PRN PRN Reason: Insomnia Last Admin: 11/22/23 19:25 Dose: 6 mg Documented By: GURINDER Methadone HCl (Methadone Hcl 20 Mg/2 Ml Oral.Conc) 80 mg PO DAILY [facility] Last Admin: 11/23/23 08:00 Dose: 80 mg Documented By: ELVIS Metoprolol Tartrate (Metoprolol Tartrate 12.5 Mg Halftab) 12.5 mg PO BID [facility]; Protocol Last Admin: 11/19/23 20:14 Dose: 12.5 mg Documented By: TRES Nicotine (Nicotine 21 Mg Patch.Td24) 21 mg TRANSDERMA DAILY [facility] Last Admin: 11/23/23 07:50 Dose: Not Given Documented By: ELVIS Non-Admin Reason: Patient Refused Omeprazole (Omeprazole 20 Mg Capsule.Dr) 20 mg PO BID@0630,1630 [facility] Last Admin: 11/23/23 06:07 Dose: Not Given Documented By: GURINDER Non-Admin Reason: Patient Refused Ondansetron HCl (Ondansetron Hcl 4 Mg/2 Ml Vial) 4 mg IVPUSH Q8H PRN PRN Reason: Nausea and Vomiting Oxycodone HCl (Oxycodone Hcl Immed Release 5 Mg Tablet) 5 mg PO Q4H PRN PRN Reason: Pain, Moderate(Pain Scale 4-6) Last Admin: 11/23/23 14:48 Dose: 5 mg Documented By: ELVIS Sodium Chloride (0.9 % Sodium Chloride Flush 3 Ml Syringe) 3 ml IVFLUSH QSHIFT SHAHEED Last Admin: 11/23/23 07:59 Dose: Not Given Documented By: ELVIS Non-Admin Reason: No Access Labs 11/19/23 06:10 11/19/23 06:10 Assessment and Plan (1) Bacterial infection due to streptococcus, group A: Status: Acute (2) Intractable pain: Status: Acute (3) Osteoarthritis of right hip: Status: Acute Plan 48-year-old female with pertinent history of tobacco use disorder, IV polysubstance use disorder who was brought to the emergency department [place] and screaming for help, complaining of leg pain. Intractable Right hip pain 2/2 Severe OA Ortho consult advises joint aspirate, IR attempted aspirate on 11/13, nothing came out PRN Morphine and Oxycodone (titrate down as tolerated) Tylenol, Ibuprofen and Omeprazole PT eval rec SNF Discuss with ORthopedic for OP plans: injection vs Hip replacement as outpatient. she needs to be off drugs 3-6 months before any surgical plans IR can do hip injection as OP once she is done with antibiotics. (referral placed on discharge papers) Acute DVT of right lower extremity Unprovoked. CTA 11/13, no PE DC Lovenox and transitioned to Eliquis, completed loading dose, now on [address] Ivan Rucker, [facility] vascular surgery [facility] consulted>> no surgical intervention warranted. hematology consult for unprovoked DVT and adrenal mass, recommended Endocrine workup and Outpatient referral to last trimmer. lung nodules that are below 1 cm and do not look suspicious. Alternatively, repeat CT chest/abdomen and pelvis in a few months to re-evaluate. Sepsis d/t strep Pyogenese bacteremia Initially was on Vanco and Ceftraixone, later changed to Ceftriaxone 2 gram/daily and 2 days of Clindamycin 600 q8 per ID recommendation. Continue Ceftriaxone for now At Discharge: PO Ceftin 500 mg bid for total of 10 days antibiotics as Echo showed no endocarditis. Elevated BP likely unreated HTN BP is within normal off medications for few days. DC Norvasc and Lisinopril Metoprolol started small dose of Bigeminy and PACs Right adrenal nodule: >4cm and >10 HU. Obtaining DHEA-S, plasma metanephrine, PAC, renin aldosterone to rule out hormonal hypersecretion Will need further work up. Oncology consult = consider repeat imaging at later time and outpatient work up Microcytic anemia Likely chronic, above transfusion threshold, follow CBC acute Hypokalemia replaced and now normal Polysubstance IV drug use disorder: UDS positive for cocaine, fentanyl and opiates. refused clonidine, hydroxyzine increase methadone to 80, followed by addiction team Homelessness: Case management follow up for placement . She refused going to SNF. plan for discharge [facility] she has appt with [facility] for services Tobacco use disorder: Nicotine patch while in the hospital. Counseled regarding cessation DVT prophylaxis: Audrey Will need overnight hospital stay for treatment of bacteremia, safe disposition Quality Stroke Does the patient have a stroke diagnosis?: No VTE Prior VTE?: No VTE Risk Level:: Medical - moderate - high VTE Device Contraindication: Treatment Not Indicated VTE Drug Contraindication: N/A - Med Ordered
[2023-11-23] MEDS: Omeprazole 20 MG CAPSULE.DR PO (16:27)
[2023-11-23] MEDS: hydrOXYzine HCL 25 MG TABLET PO (20:03)
[2023-11-23] MEDS: Melatonin 3 MG TABLET 6 MG PO (20:03)
[2023-11-24] VITALS: PULSE 100
[2023-11-24] MEDS: traMADoL HCL 50 MG TABLET PO (01:59)
[2023-11-24] MEDS: oxyCODONE HCl Immed Release 5 MG TABLET PO (03:24)
[2023-11-24 03:42] VITALS: BP 130/68; PULSE 93; RESP 18; TEMP 37; O2SAT 93
[2023-11-24 08:00] VITALS: BP 113/65; PULSE 88; RESP 16; TEMP 36.9; O2SAT 92
[2023-11-24] MEDS: Apixaban 5 MG TABLET PO (08:53)
[2023-11-24] MEDS: Ferrous Sulfate 324 MG TABLET.DR PO (08:53)
[2023-11-24] MEDS: guaiFENesin LA 600 MG TAB.ER.12H PO (08:53)
[2023-11-24] MEDS: Acetaminophen 325 MG TABLET 975 MG PO ×2 (08:53→11:25)
[2023-11-24] MEDS: Doxycycline Monohydrate 100 MG CAPSULE PO (08:53)
[2023-11-24] MEDS: methADONE HCl 20 MG/2 ML ORAL.CONC 80 MG PO (08:53)
--- NOTE | 2023-11-24 09:24 | MHC.CM.PN ---
Addendum entered by Vivien Molina RN 11/24/23 14:29: PT TRANSPORTED VIA LYFT TO [address] Addendum entered by Vivien Molina RN 11/24/23 09:56: CM CONTACTED CONSTANCE AT [facility] WHO REPORTED SHE DID SPEAK W/PT TODAY AND CM CLARIFIED THAT PT WANTS TO GO TO [facility] TO COMPLETE INTAKE AND THEN HER SON WILL PICK HER UP AND BRING HER TO [place] TO OBTAIN A COPY OF HER CERTIFICATE. CM WILL SET UP LYFT FOR 12:45PM SO SHE CAN BE THERE FOR 1PM INTAKE CONSTANCE REPORTS THAT IS A GOOD TIME. Original Note: CM ATTEMPTED TO CONTACT CONSTANCE AT [facility], NUMBER IN PREVIOUS CM NOTE, NO ANSWER AND DETAILED MESSAGE LEFT, CM MET W/PT AND SHE CONT'S TO REFUSE STR AND REPORT THAT SHE WILL NEED A LYFT TO [facility] AT [address] [place] [address] FOR INTAKE AND WILL GO TO [facility] FOR A WC VS BEING DROPPED OFF AT [facility] AND THAT SHE WILL CALL HER SON FROM THERE AND HE WILL PAY FOR HER TO BE IN B[place] UNTIL SHE HAS ACCESS TO FUNDS AGAIN, CM WILL REVISIT W/PT AT 9:30AM.
--- NOTE | 2023-11-24 10:28 | P.DS_ITS ---
DS: Providers Provider Date of Service: 11/24/23 Date of admission: 11/12/23 00:54 Date of discharge: 11/24/23 Primary care physician: None Physician Attending physician on admission: Gareth Renteria Consults: 11/12/23 00:58 Addiction Medicine Routine Consulting Provider: Addiction Covering Reason for consultation: cocaine and opioid use disorder 11/12/23 12:00 Consult to Infectious Diseases Routine Consulting Provider: [facility] Reason for consultation: Bacteremia 11/13/23 12:59 Consult to Hematology / Oncology Routine Consulting Provider: [facility] Oncology/Hematology Reason for consultation: Unprovoked DVts and adrenal mass Has provider been notified: No 11/14/23 08:18 Consult to Orthopedics Routine Consulting Provider: [facility] Orthopedic Surgeons Reason for consultation: R hip pain, severe OA with joint effusion Has provider been notified: No Attending physician on discharge: Abner Paul Discharging clinician: Suzette Lutz DS: Diagnosis Discharge Diagnosis (1) Bacterial infection due to streptococcus, group A: Status: Acute (2) Intractable pain: Status: Acute (3) Osteoarthritis of right hip: Status: Acute DS: Summary Hospital Course Hospital Course: Admission note HPI This is a 48-year-old female with pertinent history of tobacco use disorder, IV polysubstance use disorder who was brought to the emergency department after [place] near the [place] track and screaming for help, complaining of leg pain. As per EMS, she was found by the police who called EMS. Patient states she is homeless in admits to using IV drugs. She used on the day of present ation. Patient states he was screaming due to her leg pain that has been ongoing for a while. Patient states she has never had such pain before. Denies fever or chills. No chest discomfort, palpitations, cough, shortness of breath, abdominal pain, changes in urinary or bowel habits. Patient denies taking any prescription medications. In the emergency department, imaging with acute DVT of the right lower extremity. [facility] vascular surgery was consulted who recommended admission with anticoagulation, no surgical intervention warranted at this time. Patient also with fever 101.5 and WBC 21 with elevated procalcitonin in the ER. She was given therapeutic Lovenox and empiric IV antibiotics. Hospital course Pt planned for discharge 11/22 but delayed. No interval change in clinical con dition overnight. Per CM, patient will be discharged to [facility] for intake and then her son will pick her up and bring her to [place] to obtain copy of certificate and her son has rented her a room at a local motel. - Intractable Right hip pain secondary to Severe OA Ortho consult advises joint aspirate, IR attempted aspirate on 11/13, nothing came out Weaned from Morphine and Oxycodone Tylenol, Ibuprofen and Omeprazole PT eval rec SNF Discuss with ORthopedic for OP plans: injection vs Hip replacement as outpatient. she needs to be off drugs 3-6 months before any surgical plans IR can do hip injection as OP once she is done with antibiotics. Acute DVT of right lower extremity Unprovoked. CTA 11/13, no PE DC Lovenox. Continue Eliquis Dr. Ivan Rucker, [facility] vascular surgery [facility] consulted>> no surgical intervention warranted. hematology consult for unprovoked DVT and adrenal mass, recommended Endocrine workup and Outpatient referral to registered nurse cardiac. lung nodules that are below 1 cm and do not look suspicious. Alternatively, repeat CT chest/abdomen and pelvis in a few months to re-evaluate. Sepsis d/t strep Pyogenese bacteremia Initially was on Vanco and Ceftraixone, later changed to Ceftriaxone 2 gram/daily and 2 days of Clindamycin 600 q8 per ID recommendation. Continue Ceftriaxone for now At Discharge: PO Ceftin 500 mg bid for total of 10 days antibiotics as Echo showed no endocarditis. Elevated BP likely unreated HTN BP is within normal. Norvasc and Lisinopril, continue on discharge Right adrenal nodule: >4cm and >10 HU. Obtaining DHEA-S, plasma metanephrine, PAC, renin aldosterone to rule out hormonal hypersecretion Will need further work up. Oncology consult = consider repeat imaging at later time and outpatient work up Microcytic anemia Likely chronic, above transfusion threshold, follow CBC acute Hypokalemia replaced and now normal Polysubstance IV drug use disorder: UDS positive for cocaine, fentanyl and opiates. refused clonidine, hydroxyzine increase methadone to 80, followed by addiction team Homelessness: declined str. will dc [facility] Tobacco use disorder: Nicotine patch while in the hospital. Counseled regarding cessation Discharge plan Continue 10 more days of Ceftin Continue Eliquis 5 mg twice daily for 3 months Iron supplement Continue to follow with Methadone clinic Tylenol, Ibuprofen and Oxycodone for pain control Follow up with Interventional radiology as outpatient for Right hip steroid injection To follow with Dr Jose from Orthopedic as outpatient in 3 months to start arrangements for hip replacement surgery. you need to be clean of drugs according to the orthopedic team for at least 3 months. Physical therapy as tolerated Time Attestation Discharge Coordination Time (in mins): 40 Quality: Safe Use of Opioids Does Pt have an Active Cancer Diagnosis on the Problem List?: No Quality: Stroke Does the patient have a stroke diagnosis?: No Physical Exam Vital Signs: Vital Signs: Last Vital Signs Temp 98.4 F 11/24/23 08:00 Pulse 88 11/24/23 08:00 Resp 16 11/24/23 08:00 BP 113/65 11/24/23 08:00 Pulse Ox 92 11/24/23 08:00 O2 Del Method Room Air 11/24/23 08:00 O2 Flow Rate 2 11/22/23 07:21 BMI result Body Mass Index 26.3 Discharge Plan Discharge Anticipated Discharge Date/Time: 11/23/23 11:36 Patient Disposition: Home, Self-Care Discharge Diagnosis: Bacteremia group A streptococcus Acute DVT Referrals: Berny Ramírez MD [Physician] - 2 Weeks ( Evaluation for steroid injection to Right hip for severe osteoarthritis with pain and restriction Until she can follow with Orthopedic for surgical replacement of the hip. ) Physician,None [Primary Care Provider] - 1 Week Discharge Medications: New nicotine 21 mg/24 hr Patch 24 Hour 21 mg transdermal DAILY Qty: 30 0RF Eliquis 5 mg Tablet 5 mg PO BID Qty: 120 0RF acetaminophen 325 mg Tablet 975 mg PO TIDWM Qty: 90 0RF omeprazole 20 mg Capsule,Delayed Release(Dr/Ec) 20 mg PO DAILY Qty: 90 0RF methadone [Methadose] 10 mg/mL Concentrate 80 mg PO DAILY Qty: 8 0RF Rx Instructions: Partial Fill upon patient request. ferrous sulfate 324 mg (65 mg iron) Tablet,Delayed Release (Dr/Ec) 324 mg PO DAILY Qty: 90 0RF cefuroxime axetil 500 mg tablet 500 mg PO BID Qty: 20 0RF oxycodone 5 mg tablet 5 mg PO BID PRN (Reason: severe pain (scale score 7-10)) Qty: 8 0RF Rx Instructions: Partial Fill upon patient request. Discharge Orders: Discharge Order (Routine); Ordered 11/24/23 Ordered By: Suzette Lutz Diet: Advance to usual diet Activity on Discharge: As tolerated Stand Alone Forms: Patient Portal Discharge page Print Language: Yakut Care Plan Goals: Continue 10 more days of Ceftin Continue Eliquis 5 mg twice daily for 3 months Iron supplement Continue to follow with Methadone clinic Tylenol for pain control Follow up with Interventional radiology as outpatient for Right hip steroid injection To follow with Dr Jose from Orthopedic as outpatient in 3 months to start arrangements for hip replacement surgery. you need to be clean of drugs according to the orthopedic team for at least 3 months. Physical therapy as tolerated Health Concerns: Read below Plan of Treatment: Read below Assessment: Read below
== END 2023-11-24 13:15 | disposition home or self-care (01) | DRG 720 ==
LOC: HO.ED 11-12 00:26 → HO.EDOVER 11-12 01:04 → HO.S3 11-12 07:34 → HO.EDOVER 11-12 07:49 → HO.S3 11-12 07:52 → HO.EDOVER 11-12 07:54 → HO.IMC 11-12 08:07
PROVIDERS: Internal Medicine; Student in an Organized Health Care Education/Training Program; Admitting Provider Student in an Organized Health Care Education/Training Program; Emergency Provider Emergency Medicine; Visit Provider Physician Assistant
DX: A40.0 Sepsis due to streptococcus, group A (principal); I82.411 Acute embolism and thrombosis of right femoral vein; F11.20 Opioid dependence, uncomplicated; D50.9 Iron deficiency anemia, unspecified; E87.6 Hypokalemia; E27.9 Disorder of adrenal gland, unspecified; F19.90 Other psychoactive substance use, unspecified, uncomplicated; I10 Essential (primary) hypertension; M16.11 Unilateral primary osteoarthritis, right hip; Z59.02 Unsheltered homelessness; I82.431 Acute embolism and thrombosis of right popliteal vein; I82.451 Acute embolism and thrombosis of right peroneal vein; I82.441 Acute embolism and thrombosis of right tibial vein; Z88.0 Allergy status to penicillin; Z88.1 Allergy status to other antibiotic agents; Z87.891 Personal history of nicotine dependence; Z79.899 Other long term (current) drug therapy
CPT/HCPCS: 20610; 36415; 70450; 71250; 71275; 73502; 73700; 77002; 80048; 80051; 80076; 80202; 80307; 81001; 81003; 82088; 82550; 82626; 82627; 83540; 83605; 83735; 83835; 84145; 84244; 85025; 85027; 85610; 85730; 86140; 87040; 87086; 87147; 87205; 93005; 93306; 93971; 94640; 97162; 99285; J0131; J0692; J0696; J0736; J1170; J1650; J1756; J1790; J2060; J2270; J2470; J3370; J3371; J3480; J7120; P9047; Q9967

== ENCOUNTER → 2023-11-12 00:25 | Outpatient (BNV) | payer MEDICAID, SELFPAY | PROVIDERS: Admitting Provider Student in an Organized Health Care Education/Training Program; Emergency Provider Emergency Medicine; Visit Provider Internal Medicine Cardiovascular Disease | DX: R00.0 Tachycardia, unspecified (principal) | CPT/HCPCS: 93010 ==

== ENCOUNTER 2023-11-12 00:54 | Outpatient (BNV) | payer MEDICAID, SELFPAY | END 2023-11-13 07:00 | PROVIDERS: Admitting Provider Student in an Organized Health Care Education/Training Program; Emergency Provider Emergency Medicine; Visit Provider Internal Medicine | DX: I42.2 Other hypertrophic cardiomyopathy (principal); R00.0 Tachycardia, unspecified | CPT/HCPCS: 93010; 93306 ==

== ENCOUNTER 2023-11-12 00:54 | Outpatient (BNV) | payer MEDICAID, SELFPAY | END 2023-11-14 08:54 | PROVIDERS: Admitting Provider Student in an Organized Health Care Education/Training Program; Emergency Provider Emergency Medicine; Visit Provider Internal Medicine | DX: I49.3 Ventricular premature depolarization (principal) | CPT/HCPCS: 93010 ==

== ENCOUNTER 2023-11-12 00:54 | Outpatient (BNV) | payer MEDICAID, SELFPAY | END 2023-11-14 14:00 | PROVIDERS: Admitting Provider Student in an Organized Health Care Education/Training Program; Emergency Provider Emergency Medicine; Visit Provider Physician Assistant Surgical | DX: M25.561 Pain in right knee (principal) | CPT/HCPCS: 20610; 77002 ==

== ENCOUNTER → 2023-11-12 00:54 | Outpatient (BNV) | payer MEDICAID, SELFPAY | PROVIDERS: Admitting Provider Student in an Organized Health Care Education/Training Program; Emergency Provider Emergency Medicine; Visit Provider Internal Medicine | DX: D44.10 Neoplasm of uncertain behavior of unspecified adrenal gland (principal); I82.401 Acute embolism and thrombosis of unspecified deep veins of right lower extremity; R91.8 Other nonspecific abnormal finding of lung field | CPT/HCPCS: 99222 ==

== ENCOUNTER → 2023-11-12 00:54 | Outpatient (BNV) | payer MEDICAID, SELFPAY | PROVIDERS: Admitting Provider Student in an Organized Health Care Education/Training Program; Emergency Provider Emergency Medicine; Visit Provider Physician Assistant | DX: M16.11 Unilateral primary osteoarthritis, right hip (principal) | CPT/HCPCS: 99221; 99231; 99499 ==

== ENCOUNTER → 2023-11-12 00:54 | Outpatient (BNV) | payer MEDICAID, SELFPAY | PROVIDERS: Admitting Provider Student in an Organized Health Care Education/Training Program; Emergency Provider Emergency Medicine; Visit Provider Nurse Practitioner Psychiatric/Mental Health | DX: F11.90 Opioid use, unspecified, uncomplicated (principal) | CPT/HCPCS: 99221; 99232 ==

== ENCOUNTER → 2023-11-12 00:54 | Outpatient (BNV) | payer MEDICAID, SELFPAY | PROVIDERS: Admitting Provider Student in an Organized Health Care Education/Training Program; Emergency Provider Emergency Medicine; Visit Provider Student in an Organized Health Care Education/Training Program | DX: R52 Pain, unspecified (principal); M16.11 Unilateral primary osteoarthritis, right hip; B95.0 Streptococcus, group A, as the cause of diseases classified elsewhere | CPT/HCPCS: 99223; 99231; 99232; 99239; 99499 ==

== ENCOUNTER 2023-12-01 09:50 | Emergency (ER) | payer MEDICAID, SELFPAY ==
--- NOTE | ~2023-12-01 | XR_ITS ---
EXAMINATION: XR HIP, RIGHT CLINICAL INFORMATION: Pain in the right hip COMPARISON: 11/14/[address] scan from 11/11/2023 TECHNIQUE: Two views of the right hip. FINDINGS: Advanced changes of osteoarthritis in the right hip joint with significant narrowing of the joint space and marginal spurring no evidence of fractures. XR/XR hip RT w [id number] IMPRESSION: Advanced changes of osteoarthritis of the right hip joint
[2023-12-01 09:55] VITALS: BP 128/68; PULSE 75; O2SAT 99
--- NOTE | 2023-12-01 10:03 | ED_ITS ---
HPI - General Adult General Chief complaint: General Medical Stated complaint: HIP PAIN Time Seen by Provider: 12/01/23 10:00 Source: patient and EMS Mode of arrival: EMS Limitations: other (Poor historian) History of Present Illness ED Provider: Day CAICEDO HPI narrative: This is a 48-year-old female history of IVDA, opiate use disorder, osteoarthritis of right hip, DVT on Eliquis presenting to the emergency department with complaints of right hip pain x 2 weeks sp fall she report she was seen here for that initially told to go to rehab and then she refused. Since then she has been on the streeet unable to ambulate in wheelchair. She has not even been able to get up so she has been peeing on herself. Patient has hx of substance abuse, feels like she is unable to take care of herself. She was dx with DVT ro RLE but hasnt been taking thinners. Denies CP, SOB, fevers, chills, nausea, vomiting, abd pain, headache, vision changes, dizziness, weakness. Related Data Previous Rx's ?Medication ?Instructions ?Recorded acetaminophen 325 mg tablet 975 mg (3 x 325 mg) PO TIDWM #90 11/22/23 tabs apixaban 5 mg tablet (Eliquis) 5 mg PO BID #120 tabs 11/22/23 cefuroxime axetil 500 mg tablet 500 mg PO BID #20 tabs 11/22/23 ferrous sulfate 324 mg (65 mg 324 mg PO DAILY #90 tabs 11/22/23 iron) tablet,delayed release methadone 10 mg/mL oral 80 mg (8 mL) PO DAILY #8 mL 11/22/23 concentrate (Methadose) nicotine 21 mg/24 hr daily 21 mg transdermal DAILY #30 ea 11/22/23 transdermal patch omeprazole 20 mg capsule,delayed 20 mg PO DAILY #90 caps 11/22/23 release Allergies Allergy/AdvReac Type Severity Reaction Status Date / Time clindamycin Allergy Unknown Verified 12/01/23 10:08 Penicillins Allergy Unknown Verified 11/11/23 19:26 Review of Systems 2 Review of Systems: Yes all other systems are reviewed and are negative PMFSH Past Medical History Attestation statement: The following information was validated with the patient. Source: old records reviewed and nursing notes reviewed Medical History Osteoarthritis of right hip Adrenal nodule Opioid use disorder IVDU (intravenous drug user) Social History Social History Household Members: None Housing: Homeless Comment: pt. refusing socks Patient Tobacco Use Status: Former Tobacco user Smoked in Last 30 Days: Yes Use of substances other than those prescribed or required for medical reasons: Refusing to respond Substance Use Type: Crack/Cocaine Advance Directives: No Advance Directives Information Provided: No Do you have a plan to hurt others: No Plan service: No Physical Exam ED Vital Signs: Vital Signs - 24 hr 12/07/23 14:00 12/07/23 22:00 12/08/23 06:00 Temperature 98.4 F 98.7 F 98.6 F Pulse Rate 75 72 71 Respiratory Rate 14 16 16 Blood Pressure 100/62 106/61 Pulse Oximetry 98 97 98 Oxygen Delivery Method Room Air Room Air Room Air BMI result Body Mass Index 27.6 vss Appearance: Alert.? Oriented X3.? No acute distress.?Unkempt Head: Normocephalic, atraumatic, no step-offs or deformities Eyes: Pupils equal, round and reactive to light.? Neck: Normal inspection.? Neck supple.? CVS: Normal heart rate and rhythm.? Pulses normal.? Respiratory: No respiratory distress.? Breath sounds normal.? Abdomen: Soft and nontender.? Skin: Skin warm and dry.? Normal skin color.? Normal skin turgor.? + track hernandez Extremities: 2+ pittinge krishna to RLE and normal LLE. + janeth on RLE. No errythema or warmth overlying b/l LE. 5/5 strength to bilateral upper and lower extremities Neuro: Oriented X 3.? No motor deficit.? No sensory deficit. CN 2-12 intact Course Reevaluation(s) Reevaluation #1: Upon chart review patient was evaluated here on 11/11/2023 and she was found lying near train tracks where she was screaming for help, she is complaining of severe pain to the right hip and leg at that time she has a longstanding history of arthritis per that note, she was noted to have a DVT was placed on Eliquis however has been non med compliant. Patient returns with similar symptoms. On that visit she was advised that it would be best for her to go to rehab however she adamantly refused she went back to the community, homeless and presents today with the same complaint. Time: 10:21 Reevaluation #2: Strike right hip osteoarthritis of right hip. To note patient did have a joint aspiration of the right hip on 11/14/2023 with no aspiration of fluid. CBC with a microcytic anemia appears to be around patient's baseline better than last time. Chemistry no acute findings needing intervention. Ethanol negative. DRUMMOND pending. At this time patient to be placed into observation to allow more time to be evaluated by physical therapy and case management. I did initiate Eliquis here for DVT which she was diagnosed with last time she was here and has not been med compliant. Time: 14:03 Additional Reevaluation(s): December 01, 2023, 5:00 p.m. patient is currently pending placement and being seen by case management. Given the patient's history of polysubstance use, she is requesting to resume methadone. A consult for the addiction medicine team has been placed. Medications have been reconciled. 8:00 p.m. patient is resting comfortably. No evidence of withdrawal. Currently waiting placement. December 02, 2023, 12:15 a.m. patient resting comfortably at this time. December 02, 2023, 2:00 a.m. patient signed out in stable condition pending placement. Resting comfortably at this time. 12/02/2023 0630 ---> Physician observation continues. Case management continues to follow. 12/03/2023 0630 ---> Physician observation continues. Case management continues to follow. 12/03/2023 18:30 patient believes she has a yeast infection after discussing with nursing. I offered to treat with a 1 time dose of Diflucan or all the patient to swab herself and she declined swabs. 12/04/23 0640 -- Vital signs stable. no acute overnight events per nursing notes. med rec reviewed and completed. PT evaluated patient on 12/01/23 and is recommended STR. physician observation continued pending case management and placement. 12/05/23 physician observation continued, no overnight events reported by nursing. Vital signs stable. Case management following for disposition. 12/06/23 08:04 Physician observation continued, no overnight events reported by nursing. Vitals stable. CM following for disposition. 12/07/23--07:33--physician observation continued. Vital signs stable. [facility] in the process of verifying/obtaining insurance authorization. Will continue to monitor for discharge needs 1046--patient will go to [facility] tomorrow at 10am for STR. 12/08/23 @ 930am - physician observation continued overnight. no acute overnight events. patient is to be discharged [facility] for acute rehab. she does not meet criteria for inpatient admission and will be discharged to acute rehab. she is awake, alert and stable for discharge. total time in physician observation 7 days 9 hours and 30 minutes. physician observation discontinued at this time. Medications Administered Generic Name Dose Route Start Last Admin Trade Name Freq PRN Reason Stop Dose Admin Acetaminophen 975 mg 12/02/23 08:00 12/07/23 17:25 Acetaminophen 325 Mg Tablet PO 975 mg TIDWM SHAHEED Administration Apixaban 10 mg 12/01/23 21:00 12/07/23 19:33 Apixaban 5 Mg Tablet PO 12/08/23 09:01 10 mg BID SHAHEED Administration Cefuroxime Axetil 500 mg 12/02/23 21:00 12/07/23 19:32 Cefuroxime Axetil 250 Mg Tablet PO 500 mg BID SHAHEED Administration Ferrous Sulfate 324 mg 12/01/23 19:00 12/07/23 08:35 Ferrous Sulfate 324 Mg Tablet. PO 324 mg DAILY SHAHEED Administration Lidocaine 1 patch 12/07/23 12:34 12/07/23 12:47 Lidocaine 4 % Patch Adh..Patch TRANSDERMA 1 patch DAILY PRN Administration Pain, Moderate(Pain Scale 4-6) Protocol Methadone HCl 80 mg 12/03/23 09:00 12/07/23 08:35 Methadone Hcl 20 Mg/2 Ml Oral.Conc PO 80 mg DAILY SHAHEED Administration Nicotine 21 mg 12/01/23 19:00 12/07/23 08:40 Nicotine 21 Mg Patch.Td24 TRANSDERMA Not Given DAILY SHAHEED Omeprazole 20 mg 12/02/23 06:30 12/08/23 06:26 Omeprazole 20 Mg Capsule. PO 20 mg DAILY@0630 [facility] Administration Discontinued Medications Generic Name Dose Route Start Last Admin Trade Name Freq PRN Reason Stop Dose Admin Acetaminophen 975 mg 12/01/23 11:04 12/01/23 12:14 Acetaminophen 325 Mg Tablet PO 08/09/24 11:05 975 mg ONCE ONE Administration Acetaminophen 650 mg 12/03/23 04:47 12/03/23 04:55 Acetaminophen 325 Mg Tablet PO 12/03/23 04:48 650 mg ONCE ONE Administration Cefuroxime Axetil 500 mg 12/01/23 21:00 12/02/23 10:08 Cefuroxime Axetil 500 Mg Tablet PO 500 mg BID SHAHEED Administration Fluconazole 150 mg 12/03/23 18:23 12/03/23 19:30 Fluconazole 150 Mg Tablet PO 12/03/23 18:24 150 mg ONCE ONE Administration Lidocaine 1 patch 12/02/23 15:44 12/02/23 16:23 Lidocaine 4 % Patch Adh..Patch TRANSDERMA 12/02/23 15:45 1 patch ONCE ONE Administration Protocol Lidocaine 1 patch 12/03/23 04:47 12/03/23 04:56 Lidocaine 4 % Patch Adh..Patch TRANSDERMA 12/03/23 04:48 1 patch ONCE ONE Administration Protocol Lidocaine 1 patch 12/03/23 21:44 12/03/23 23:59 Lidocaine 4 % Patch Adh..Patch TRANSDERMA 12/03/23 21:45 1 patch ONCE ONE Administration Protocol Lidocaine 1 patch 12/04/23 10:24 12/04/23 10:48 Lidocaine 4 % Patch Adh..Patch TRANSDERMA 12/04/23 10:25 1 patch ONCE ONE Administration Protocol Lidocaine 1 patch 12/05/23 16:31 12/05/23 16:44 Lidocaine 4 % Patch Adh..Patch TRANSDERMA 12/05/23 16:32 1 patch ONCE ONE Administration Protocol Lidocaine 1 patch 12/06/23 21:38 12/06/23 21:57 Lidocaine 4 % Patch Adh..Patch TRANSDERMA 12/06/23 21:39 1 patch ONCE ONE Administration Protocol Melatonin 6 mg 12/03/23 19:51 12/03/23 20:19 Melatonin 3 Mg Tablet PO 12/03/23 19:52 6 mg ONCE ONE Administration Melatonin 6 mg 12/05/23 20:25 12/05/23 20:38 Melatonin 3 Mg Tablet PO 12/05/23 20:26 6 mg ONCE ONE Administration Melatonin 9 mg 12/06/23 21:38 12/06/23 21:57 Melatonin 3 Mg Tablet PO 12/06/23 21:39 9 mg ONCE ONE Administration Melatonin 9 mg 12/07/23 18:43 12/07/23 19:33 Melatonin 3 Mg Tablet PO 12/07/23 18:44 9 mg ONCE ONE Administration Methadone HCl 80 mg 12/01/23 19:00 12/02/23 08:45 Methadone Hcl 20 Mg/2 Ml Oral.Conc PO 80 mg DAILY SHAHEED Administration Morphine Sulfate 30 mg 12/02/23 03:22 12/02/23 03:29 Morphine Sulfate Immed Release 15 Mg Tablet PO 12/02/23 03:23 30 mg ONCE ONE Administration Nicotine 21 mg 12/03/23 21:31 12/03/23 22:09 Nicotine 21 Mg Patch.Td24 TRANSDERMA 12/03/23 21:32 Not Given ONCE ONE Medical Decision Making Medical Decision Making [facility] Narrative: 1004 48 yo f presents w/ worsening r hip pain and RLE swelling. Not med compliant PE 2+ pittinge krishna to RLE and normal LLE. + janeth on RLE. No errythema or warmth overlying b/l LE. 5/5 strength to bilateral upper and lower extremitis History and physical exam concerning for right lower extremity DVT that is not improving as patient is not med compliant with Eliquis. Unlikely arterial occlusion. Right hip pain likely osteoarthritis. Unlikely fracture, dislocation, septic joint, neurovascular compromise. Patient has not had any fall since her visit. This this presentation is likely due to patient being homeless, unkempt in non med compliant. Worsening pain as patient is not taking anything for the pain. Patient was recommended to go to rehab however refused. Plan- labs, urine, imagin g Differential Diagnosis Differential Diagnoses: The differential diagnosis associated with the presentation includes History and physical exam concerning for right lower extremity DVT that is not improving as patient is not med compliant with Eliquis. Unlikely arterial occlusion. Right hip pain likely osteoarthritis. Unlikely fracture, dislocation, septic joint, neurovascular compromise. Patient has not had any fall since her visit. Admission/Observation Consideration of admission/observation: Escalation of care including admission/observation considered possible Lab Data [facility] Lab Attestation statement: I reviewed the patient's lab results. 12/01/23 12:30 12/01/23 12:30 Labs: Lab Results 12/01/23 12/01/23 Range/Units 12:30 16:08 WBC 5.0 (4.8-10.8) X10*3/uL RBC 3.67 L (4.20-5.50) X10*6/uL Hgb 8.4 L (12.0-16.0) g/dl Hct 27.3 L (37.0-47.0) % MCV 74.4 L (80.0-98.0) fL MCH 22.9 L (27.0-33.0) pg MCHC 30.8 L (31.0-35.0) g/dl RDW 18.5 H (11.0-16.0) % Plt Count 475 H (160-400) X10*3/uL MPV 8.5 L (9.4-12.3) fL Immature Gran % (Auto) 0.4 (0.0-0.4) % Neut % (Auto) 62.5 (45-73) % Lymph % (Auto) 28.5 (20-40) % [place] % (Auto) 7.0 (2-11) % Eos % (Auto) 1.2 (0-4) % Baso % (Auto) 0.4 (0-2) % Lymph # (Auto) 1.4 (1.2-4.9) X10*3/uL [place] # (Auto) 0.4 (0.1-1.2) X10*3/uL Eos # (Auto) 0.1 (0.0-0.4) X10*3/uL Baso # (Auto) 0.0 (0.0-0.2) X10*3/uL Abs Immat Gran (auto) 0.02 (0.00-0.03) X10*3/uL Absolute Neuts (auto) 3.1 (2.0-8.3) x10*3/uL Absolute Nucleated RBC 0.000 (0.0-0.012) X10*3/uL Nucleated RBC % (auto) 0.0 (0.0-0.2) /100WBC Smear Tech's Comments VERIFIED Sodium 141 (135-145) mmol/L Potassium 3.5 D (3.3-5.1) mmol/L Chloride 104 (96-108) mmol/L Carbon Dioxide 29 (22-29) mmol/L Anion Gap 12 (12-20) BUN 7 L (9-16) mg/dL Creatinine 0.51 (0.5-1.4) mg/dL Estim Creat Clear Calc 130.6 Estimated GFR > 60 Random Glucose 91 (60-115) mg/dL Calcium 9.3 (8.4-10.2) mg/dL Total Bilirubin 0.2 (0.0-1.0) mg/dL AST 18 (5-31) U/L ALT 15 (0-31) U/L Alkaline Phosphatase 74 (39-117) U/L Total Protein 8.6 H (6.5-8.0) g/dL Albumin 3.0 L (3.5-5.0) g/dL Urine Color Yellow Urine Appearance Hazy Urine pH 7.5 (5.0-9.0) Ur Specific Mccune 1.010 (1.005-1.025) Urine Protein Negative (Neg-Trace) mg/dL Urine Glucose (UA) Negative (Negative) mg/dL Urine Ketones Negative (Negative) mg/dL Urine Blood Negative (Negative) Urine Nitrite Negative (Negative) Ur Leukocyte Esterase Negative (Negative) Urine Opiates Screen Not Detected (Not Detect) Ur Buprenorphine Scrn Not Detected (Not Detect) ng/mL Ur Oxycodone Screen Not Detected (Not Detect) ng/mL Urine Methadone Screen Not Detected (Not Detect) ng/mL Urine Fentanyl Screen POSITIVE H (Not Detect) Ur Barbiturates Screen Not Detected (Not Detect) Ur Phencyclidine Scrn Not Detected (Not Detect) Ur Amphetamines Screen Not Detected (Not Detect) U Benzodiazepines Scrn Not Detected (Not Detect) Urine Cocaine Screen POSITIVE H (Not Detect) U Marijuana (THC) Screen Not Detected (Not Detect) Ethyl Alcohol < 10 mg/dL Discharge Plan Discharge Clinical Impression: Acute deep vein thrombosis (DVT) of right lower extremity, Acute pain of right hip, Homelessness, Osteoarthritis Patient Disposition: Still a Patient Prescriptions: No Action nicotine 21 mg/24 hr Patch 24 Hour 21 mg transdermal DAILY Qty: 30 0RF Eliquis 5 mg Tablet 5 mg PO BID Qty: 120 0RF acetaminophen 325 mg Tablet 975 mg PO TIDWM Qty: 90 0RF omeprazole 20 mg Capsule,Delayed Release(Dr/Ec) 20 mg PO DAILY Qty: 90 0RF methadone [Methadose] 10 mg/mL Concentrate 80 mg PO DAILY Qty: 8 0RF Rx Instructions: Partial Fill upon patient request. ferrous sulfate 324 mg (65 mg iron) Tablet,Delayed Release (Dr/Ec) 324 mg PO DAILY Qty: 90 0RF cefuroxime axetil 500 mg tablet 500 mg PO BID Qty: 20 0RF Referrals: [facility] [Outside] ([address] [place] [address] ) Print Language: Serbian
[2023-12-01 10:05] VITALS: BP 146/69; PULSE 98; RESP 18; TEMP 36.6; O2SAT 99; BMI 27.6
--- NOTE | 2023-12-01 10:12 | PC.NURSE ---
Pt presents to ED Via EMS from street, pt homeless. Pt reports she was here two weeks ago for right hip pain, possibly from a fall at that time, pts speech hard to understand. Pt reports she was admitted and was supposed to go to rehab in [place] but refused. Reports she has been homeless, living in her wheelchair. Pt reports right hip pain has worsened, can no longer perform ADLs, urinating herself due to pain of trying to take off pants. Pt presents covered in water and urine. Alert and oriented, again speech nadja hard to understand, breathing even and unlabored. Pt changed into dry clothes. VSS. Swelling noted to bilat lower legs, worse on the right.
--- NOTE | 2023-12-01 10:18 | PC.NURSE ---
Pt requested staff to cut off pant leg due to pants being stuck on right leg causing pain and more swelling.
[2023-12-01] MEDS: Acetaminophen 325 MG TABLET 975 MG PO (12:14)
--- NOTE | 2023-12-01 12:25 | PC.NURSE ---
Multiple members of staff have attempted to draw patient, phleb to be called to draw patient by senior clinical sas programmer, currently at bedside attempting to draw.
[2023-12-01 12:40] LABS: Basophils Percent Auto 0.4 % (0-2); Eosinophils Absolute Auto 0.1 X10*3/uL (0.0-0.4); Eosinophils Percent Auto 1.2 % (0-4); Hematocrit 27.3 % (37.0-47.0); Hemoglobin 8.4 g/dl (12.0-16.0); Imm Gran Abs Auto 0.02 X10*3/uL (0.00-0.03); Imm Gran Pct Auto 0.4 % (0.0-0.4); Lymphocytes Absolute Auto 1.4 X10*3/uL (1.2-4.9); Lymphocytes Percent Auto 28.5 % (20-40); MANUAL DIFF FLAG SCAN; Mean Corpuscular HGB Conc 30.8 g/dl (31.0-35.0); Mean Corpuscular Hemoglobin 22.9 pg (27.0-33.0); Mean Corpuscular Volume 74.4 fL (80.0-98.0); Mean Platelet Volume 8.5 fL (9.4-12.3); Monocytes Absolute Auto 0.4 X10*3/uL (0.1-1.2); Neutrophils Absolute Auto 3.1 x10*3/uL (2.0-8.3); Neutrophils Percent Auto 62.5 % (45-73); Platelet Count 475 X10*3/uL (160-400); Red Blood Count 3.67 X10*6/uL (4.20-5.50); Red Cell Distribution Width 18.5 % (11.0-16.0); SCAN SMEAR FLAG 1
[2023-12-01 12:51] LABS: Ethanol < 10 mg/dL
[2023-12-01 12:54] LABS: Alanine Aminotransferase 15 U/L (0-31); Alkaline Phosphatase 74 U/L (39-117); Anion Gap 12 (12-20); Aspartate Amino Transferase 18 U/L (5-31); Bilirubin Total 0.2 mg/dL (0.0-1.0); Blood Urea Nitrogen 7 mg/dL (9-16); Calcium 9.3 mg/dL (8.4-10.2); Carbon Dioxide 29 mmol/L (22-29); Chloride 104 mmol/L (96-108); Creatinine Clr Calc Pharmacy 130.6; Estimated Glomerular Filt Rate > 60; Glucose Random 91 mg/dL (60-115); Potassium 3.5 mmol/L (3.3-5.1); Sodium 141 mmol/L (135-145); Total Protein 8.6 g/dL (6.5-8.0)
[2023-12-01 13:08] VITALS: BP 146/69; PULSE 98; O2SAT 99
[2023-12-01 13:23] LABS: SLIDE REVIEW VERIFIED
--- NOTE | 2023-12-01 13:32 | PC.NURSE ---
Confirmed with provider patient can eat, diet order placed, kitchen called for tray, will deliver.
--- NOTE | 2023-12-01 13:35 | MHC.CM.ED ---
Received consult for assessment of d/c needs: pt found outside in rain unable to propel self in w/c d/t pain. [place] [facility] [place] findings for LE DVT but states her d/c plans 'fell through' and has been 'living on the streets' Review of recent INPT stay notes pts son was going to help pt with temporary housing at a hotel until she was able to work with [employer] on more permanent half-way. Pt states this didn't happen but wouldn't elaborate when asked. 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 Her w/c was provided by [employer]. She states her son is no longer involved in her disposition and declined CM to contact him. Pt requesting snacks and rest and to remain in ED until STR can be arranged. PT eval completed and broad STR referrals made starting with local sites. Barriers to placement include: limited facilities per payor, homeless status and active drug use. ED CM to follow referrals for offers
[2023-12-01 15:17] VITALS: BP 127/88; PULSE 110; RESP 16; TEMP 36.8; O2SAT 100
--- NOTE | 2023-12-01 15:30 | MHC.EDTECH ---
Patient repositioned and bed pad changed
[2023-12-01 16:15] LABS: Color Urine Yellow; Glucose Urine UA Negative (Negative); Leukocyte Esterase Urine Negative (Negative); Nitrite Urine Negative (Negative); PH 7.5 (5.0-9.0); Urine Blood Negative (Negative); Urine Ketones Negative (Negative); Urine Protein Negative (Neg-Trace)
[2023-12-01 16:19] LABS: Appearance Urine Hazy
[2023-12-01 16:28] LABS: Amphetamine Screen Urine Not Detected (Not Detect); Barbiturates, Urine Not Detected (Not Detect); Benzodiazepines Screen Urine Not Detected (Not Detect); Buprenorphine Scr Not Detected (Not Detect); Cannabinoid Screen Urine Not Detected (Not Detect); Cocaine Screen Urine POSITIVE (Not Detect); Fentanyl, urine POSITIVE (Not Detect); Methadone Screen, Urine Not Detected (Not Detect); Opiate Screen Urine Not Detected (Not Detect); Oxycodone Screen Urine Not Detected (Not Detect); Phencyclidine Screen Urine Not Detected (Not Detect)
--- NOTE | 2023-12-01 16:55 | PC.NURSE ---
Patient yelling out from stretcher saying she's withdrawing from heroin, demanding apple juice. Provider Rj made aware, will order methadone. Patient last dose here 1 week ago. Patient made aware, continues to cry and yell out intermittently.
--- NOTE | 2023-12-01 17:37 | MHC.CARE ---
ED providers reports that he does not need a CARE Team assessment at this time, as Pt is going to a rehab and mentioned she was interested in MAT. T/W advised ED provider to reach out to Dhara Rivas and that CARE Team can provide resources.
[2023-12-01 18:47] VITALS: BP 143/75; PULSE 103; RESP 16; TEMP 36.4; O2SAT 97
--- NOTE | 2023-12-01 18:50 | PC.NURSE ---
Med rec completed per provider's request. Patient states she took all her meds last when she was here before discharge, did not get last dose letter from here so was unable to get dosing in community. Patient extremely eager to get methadone dose.
[2023-12-01] MEDS: Ferrous Sulfate 324 MG TABLET.DR PO (19:13)
[2023-12-01] MEDS: methADONE HCl 20 MG/2 ML ORAL.CONC 80 MG PO (19:14)
[2023-12-01] MEDS: cefuroxime axetiL 500 MG TABLET PO (19:14)
[2023-12-01] MEDS: Nicotine 21 MG PATCH.TD24 TRANSDERMA (19:14)
--- NOTE | 2023-12-01 19:45 | PC.NURSE ---
Report called to Christine in ED overflow, patient to be sent over to overflow once transport available.
[2023-12-01] MEDS: Apixaban 5 MG TABLET 10 MG PO (20:13)
--- NOTE | 2023-12-01 20:55 | MHC.EDTECH ---
This tech took over care of patient at this time,patient came from the main ED,patient was placed in hospital bed,belongings list completed at this time,call wray in reach
--- NOTE | 2023-12-01 21:31 | PC.NURSE ---
purewick in place per request
--- NOTE | 2023-12-01 21:31 | PC.NURSE ---
belongings secured in decon, drug paraphernalia found while doing belongings list, w/c remains at bedside
--- NOTE | 2023-12-01 21:35 | MHC.EDTECH ---
This tech and Christine RN went to do belongings list,patient had needle caps inside the top of her bag, security called to assist, all belongings went to [facility],except patients wheelchair which will remain at bedside
--- NOTE | 2023-12-01 23:48 | MHC.EDTECH ---
Hourly rounds completed,patient is sleeping,resp.rate wnl,call wray in reach at bedside
--- NOTE | 2023-12-02 03:27 | MHC.EDTECH ---
Patient had removed pure-wick,this tech educated patient on use,re-applied a new pure-wick. Erinn-care given and padding changed emptied 700MLS from canister, Vitals completed,patient requested pain medicine,RN was made aware
[2023-12-02] MEDS: Morphine Sulfate Immed Release 15 MG TABLET 30 MG PO (03:29)
[2023-12-02 03:32] VITALS: BP 138/79; PULSE 84; RESP 16; TEMP 36.7; O2SAT 99
[2023-12-02] MEDS: Omeprazole 20 MG CAPSULE.DR PO (06:05)
--- NOTE | 2023-12-02 06:15 | MHC.EDTECH ---
Hourly rounds completed,patient is clean and dry at this time,2 cups of apple juice given per request,call wray in reach
--- NOTE | 2023-12-02 06:23 | MHC.EDTECH ---
Emptied 800MLS of yellow urine from suction canister at this time,Patient was incont. michaelle-care given and padding changed
[2023-12-02] MEDS: Ferrous Sulfate 324 MG TABLET.DR PO (08:44)
[2023-12-02] MEDS: Apixaban 5 MG TABLET 10 MG PO ×2 (08:44→21:03)
[2023-12-02] MEDS: Acetaminophen 325 MG TABLET 975 MG PO ×3 (08:44→17:28)
[2023-12-02] MEDS: methADONE HCl 20 MG/2 ML ORAL.CONC 80 MG PO (08:45)
[2023-12-02] MEDS: cefuroxime axetiL 500 MG TABLET PO (10:08)
--- NOTE | 2023-12-02 12:08 | MHC.RECOVRN ---
T/W was referred to consult with pt. re: methadone dosing. Pt is in ER awaiting STR placement due to immobility from osteoarthritis in right hip. Chart review completed and received report from pt's nurse Panchito. Pt was Awake and alert upon my arrival. No displays of W/D noted. Pt had received 80mg methadone this AM based on previous ER dosing approx 1 week ago. Pt reports her last outpatient methadone dosing was 125mg at [facility] in [place](last visit a few months ago ) and she was requesting an increase. This pt was in ER approx 1 week ago and D/C on methadone with referral to F/U with [facility] for further dosing. T/W attempted to call and verify last dose with [facility] but unable to reach anyone. T/W called to Dhara Rivas, [employer]ECUT[employer]ES [employer]IST[employer] [facility] and Dhara is recommending pt remain on the 80mg unless we can verify different dose with [facility]. Re: pain control for right hip, Dhara is recommending no IV pain meds and only PO. She will meet with pt on 12/03 to discuss further. T/W gave updates to Nurse Flanagan and LIZZ Solomon, based on provider recommendation. ACS available as needed.
[2023-12-02 15:07] VITALS: BP 119/62; PULSE 72; RESP 17; TEMP 36.7; O2SAT 98
[2023-12-02] MEDS: Lidocaine 4 % Patch ADH..PATCH 1 PATCH TRANSDERMA (16:23)
[2023-12-02] MEDS: cefuroxime axetiL 250 MG TABLET 500 MG PO (21:03)
[2023-12-02 22:39] VITALS: BP 121/67; PULSE 70; RESP 16; TEMP 36.3; O2SAT 98
--- NOTE | 2023-12-02 23:01 | PC.NURSE ---
resting quietly, with eyes closed,resp with ease, no s/s of acute distress at this time
--- NOTE | 2023-12-02 23:58 | MHC.EDTECH ---
THIS PCT ASSUMED CARE OF PATIENT AT 2300 ,PATIENT RESTING QUIETLY IN BED ,CALL GOMEZ WITHIN PT REACH .
--- NOTE | 2023-12-03 04:07 | PC.NURSE ---
resting quietly on bed at this time, resp with ease, no s/s of any distress
--- NOTE | 2023-12-03 04:20 | MHC.EDTECH ---
Patient awake up to use bedside commode,Void then back to bed asked for pain med ,RN AWARE ,Plan of care continue .
[2023-12-03 04:24] VITALS: BP 145/78; PULSE 64; RESP 16; TEMP 37; O2SAT 97
--- NOTE | 2023-12-03 04:33 | PC.NURSE ---
pt rquesting pain medicine, pt has tylenol ordered that is due at 0800, will check with doctor, for something for pain
--- NOTE | 2023-12-03 04:39 | MHC.EDTECH ---
Patient is ringing every 1-2 mins ,being very rude to staff yelling screaming and demanding ,wants malathion ,was told she can't have it at this time .
[2023-12-03] MEDS: Acetaminophen 325 MG TABLET 650 MG PO (04:55)
[2023-12-03] MEDS: Lidocaine 4 % Patch ADH..PATCH 1 PATCH TRANSDERMA ×2 (04:56→23:59)
--- NOTE | 2023-12-03 05:57 | MHC.EDTECH ---
Patient sleeping ,call wray within Pt reach .
[2023-12-03] MEDS: Omeprazole 20 MG CAPSULE.DR PO (06:13)
--- NOTE | 2023-12-03 06:45 | MHC.EDTECH ---
Patient just got up to use bedside commode ,and back to bed .
[2023-12-03] MEDS: cefuroxime axetiL 250 MG TABLET 500 MG PO ×2 (08:53→20:19)
[2023-12-03] MEDS: methADONE HCl 20 MG/2 ML ORAL.CONC 80 MG PO (08:53)
[2023-12-03] MEDS: Ferrous Sulfate 324 MG TABLET.DR PO (08:53)
[2023-12-03] MEDS: Apixaban 5 MG TABLET 10 MG PO ×2 (08:55→20:19)
[2023-12-03] MEDS: Nicotine 21 MG PATCH.TD24 TRANSDERMA (09:01)
[2023-12-03] MEDS: Acetaminophen 325 MG TABLET 975 MG PO ×2 (09:10→17:15)
[2023-12-03 14:00] VITALS: BP 116/67; PULSE 74; RESP 20; TEMP 37.3; O2SAT 98
[2023-12-03] MEDS: Fluconazole 150 MG TABLET PO (19:30)
[2023-12-03] MEDS: Melatonin 3 MG TABLET 6 MG PO (20:19)
--- NOTE | 2023-12-03 21:53 | PC.NURSE ---
this RN assumed care of patient at approx 1900. when rounding pt was requesting melatonin to help sleep. this RN explained that I would have to ask for an order from MD. she quickly became very upset in regards to not already having an order in place. MD notified, order obtained. upon administering the melatonin pt again became upset in regards to a nicotine patch. states that the patch was removed earlier in the day, she does not know why, and she is agitated without it. she also expressed her frustration that her 1700 dose of Tylenol was administered on time when she had wanted it to be given later. she admits that she did not express this to the previous RN and took med anyway. explained to patient that t/w would speak with provider in regards to nicotine. one time order for nicotine patch obtained. this RN went into room to give patch and again pt became very upset why would I ask for a fucking patch at this time of night? I never asked you for that. when reviewing with patient the previous conversation she said she misunderstood and wanted a lidocaine patch. this RN was able to get an order for lidocaine patch. upon entering the room to give the lidocaine patch the patient turned away from this RN and placed blanket over her head. refusing to speak to t/w. patch not given at this time.
[2023-12-04 06:15] VITALS: BP 114/71; PULSE 83; RESP 16; O2SAT 95
[2023-12-04] MEDS: Omeprazole 20 MG CAPSULE.DR PO (06:22)
[2023-12-04 09:30] VITALS: BP 97/54; PULSE 84; RESP 16; TEMP 37.3; O2SAT 97
[2023-12-04] MEDS: methADONE HCl 20 MG/2 ML ORAL.CONC 80 MG PO (09:31)
[2023-12-04] MEDS: cefuroxime axetiL 250 MG TABLET 500 MG PO ×2 (09:35→20:39)
[2023-12-04] MEDS: Acetaminophen 325 MG TABLET 975 MG PO ×3 (09:35→18:10)
[2023-12-04] MEDS: Ferrous Sulfate 324 MG TABLET.DR PO (09:35)
[2023-12-04] MEDS: Apixaban 5 MG TABLET 10 MG PO ×2 (09:35→20:38)
--- NOTE | 2023-12-04 09:37 | PC.NURSE ---
Pt. medicated per JUN. Stating that she's in pain and is requesting another Lidocaine patch. PA notified- awaiting new orders at this time. Pt. does not want Nicotine patch at this time.
[2023-12-04] MEDS: Lidocaine 4 % Patch ADH..PATCH 1 PATCH TRANSDERMA (10:48)
--- NOTE | 2023-12-04 12:13 | PHA.MEDREC ---
Addendum entered by Shelley Black RPh 12/04/23 13:59: MED REC DONE BY SHANIQUA, REVIEWED BY [facility] Original Note: Pharmacy Consult ? Medication Reconciliation Pharmacy has completed the medication reconciliation. Completed med rec with list from 11/12/23 discharge packet and patient. Patient bit of a poor historian but she was able to confirm her meds. The patient was able to confirm they are taking the Cefuroxime 500mg tabs and she just started that 2-3 days ago for the 10 days. She also is on Methadone 10ml and currently she is taking 80mg but according to her it should increase 5mg each day but it has not been according to the patient. She also could not remember the last time she took all her medicine at home.
--- NOTE | 2023-12-04 15:04 | MHC.CM.ED ---
[facility] has offered a bed and patient has accepted. Has [place] Medicaid. Will need guest dosing for methadone. Addiction medicine is aware and will assist with guest dosing.
[2023-12-04 19:07] VITALS: BP 117/68; PULSE 88; RESP 18; TEMP 37.3; O2SAT 94
--- NOTE | 2023-12-04 19:14 | PC.NURSE ---
received report from Zenaida WOLFE, assume care of pt at this time
--- NOTE | 2023-12-05 02:40 | PC.NURSE ---
1900- Assumed care of this patient. Patient resting quietly , safety measures in place, call wray within reach.
[2023-12-05 04:43] VITALS: BP 109/62; PULSE 82; RESP 18; TEMP 37.2; O2SAT 97
[2023-12-05] MEDS: Omeprazole 20 MG CAPSULE.DR PO (05:42)
[2023-12-05] MEDS: Acetaminophen 325 MG TABLET 975 MG PO ×3 (05:45→17:31)
[2023-12-05] MEDS: Apixaban 5 MG TABLET 10 MG PO ×2 (08:11→20:19)
[2023-12-05] MEDS: cefuroxime axetiL 250 MG TABLET 500 MG PO ×2 (08:11→20:19)
[2023-12-05] MEDS: Ferrous Sulfate 324 MG TABLET.DR PO (08:12)
[2023-12-05] MEDS: Nicotine 21 MG PATCH.TD24 TRANSDERMA (08:12)
[2023-12-05] MEDS: methADONE HCl 20 MG/2 ML ORAL.CONC 80 MG PO (08:12)
[2023-12-05 08:25] VITALS: BP 103/62; PULSE 77; RESP 17; TEMP 36.9; O2SAT 96
--- NOTE | 2023-12-05 09:57 | MHC.RECOVRN ---
Pts paperwork currently being reviewed by [employer] Intake informed t/w they will call when pt is approved.
--- NOTE | 2023-12-05 09:58 | MHC.CM.ED ---
Patient remains in ER overflow. [facility] is in the process of obtaining insurance auth. Guest methadone dosing with need to be arranged at [facility] in [place]. Denzel Comer RN is working on this. T/W submitted for [facility] PASRR Level 2. Continue to monitor for d/c needs.
[2023-12-05 14:27] VITALS: BP 104/59; PULSE 82; RESP 16; O2SAT 98
[2023-12-05] MEDS: Lidocaine 4 % Patch ADH..PATCH 1 PATCH TRANSDERMA (16:44)
--- NOTE | 2023-12-05 17:47 | MHC.CM.ED ---
Pt very upset. Telling CM that she has a problem with her express card that her monthly benefits are deposited into. States she needs a copy of her certificate and her social security card. She has neither. She says she has been on the phone all day. CM explained that she has to make those calls. Pt c/o that the certificate costs 10-15 dollars and she doesn't have the money. CM explained that perhaps her family can help her with this. Also explained that the nephrology social worker at [facility] may be able to help her. Explained that CM in the hospital works on discharge planning and our financial services department helps with MH only. Awaiting insurance auth
[2023-12-05] MEDS: Melatonin 3 MG TABLET 6 MG PO (20:38)
[2023-12-05 20:53] VITALS: BP 110/54; PULSE 83; RESP 16; TEMP 37; O2SAT 97
--- NOTE | 2023-12-06 00:02 | MHC.EDTECH ---
THIS PCT ASSUMED CARE OF PATIENT AT 2300 ,PT SLEEPING .NO APPARENT DISTRESS NOTED ,CALL GOMEZ WITHIN PT REACH .
[2023-12-06 05:16] VITALS: BP 127/74; PULSE 72; RESP 16; TEMP 36.2; O2SAT 97
--- NOTE | 2023-12-06 05:17 | MHC.EDTECH ---
Patient slept all night ,up to use the bedside commode ,void ,back to bed ,had yogurt and apple juice for am snack .call wray within pt reach ,plan of care continue .
[2023-12-06] MEDS: Omeprazole 20 MG CAPSULE.DR PO (06:50)
[2023-12-06] MEDS: cefuroxime axetiL 250 MG TABLET 500 MG PO ×2 (08:06→20:17)
[2023-12-06] MEDS: Apixaban 5 MG TABLET 10 MG PO ×2 (08:06→20:17)
[2023-12-06] MEDS: Acetaminophen 325 MG TABLET 975 MG PO ×3 (08:06→17:35)
[2023-12-06] MEDS: Nicotine 21 MG PATCH.TD24 TRANSDERMA (08:06)
[2023-12-06] MEDS: Ferrous Sulfate 324 MG TABLET.DR PO (08:07)
[2023-12-06] MEDS: methADONE HCl 20 MG/2 ML ORAL.CONC 80 MG PO (08:09)
--- NOTE | 2023-12-06 09:03 | MHC.EDTECH ---
pt is independent and was given oral hygiene supplies and ate breakfast 100%
--- NOTE | 2023-12-06 10:45 | MHC.RECOVRN ---
Pt accepted to dose at [facility] while at [facility]. CM aware.
--- NOTE | 2023-12-06 11:10 | MHC.EDTECH ---
pt was given personal hygiene supplies to wash up told me to put it on the chair. Told her i can help her if she needed
--- NOTE | 2023-12-06 11:41 | MHC.CM.ED ---
Patient remains in ER overflow. Methadone dosing at [facility] in [place] has been arranged by Denzel Comer RN. [facility] PASRR Level 2 has been obtained. [facility] is in the process of verifying with [facility] and obtaining insurance auth. Continue to monitor for d/c needs.
--- NOTE | 2023-12-06 12:27 | PC.NURSE ---
Pt. medicated per MAR. Denies other complaints at this time.
[2023-12-06 13:48] VITALS: BP 104/66; PULSE 81; RESP 20; TEMP 37.3; O2SAT 96
--- NOTE | 2023-12-06 13:56 | MHC.EDTECH ---
pt ate 100% lunch
--- NOTE | 2023-12-06 18:44 | PC.NURSE ---
Patient medicated for pain per MAR , no additional complaints at this time.
[2023-12-06 21:26] VITALS: BP 105/60; PULSE 87; RESP 20; TEMP 36.2; O2SAT 98
[2023-12-06] MEDS: Lidocaine 4 % Patch ADH..PATCH 1 PATCH TRANSDERMA (21:57)
[2023-12-06] MEDS: Melatonin 3 MG TABLET 9 MG PO (21:57)
[2023-12-07 06:00] VITALS: BP 118/75; PULSE 78; RESP 17; TEMP 37.2; O2SAT 99
[2023-12-07] MEDS: Omeprazole 20 MG CAPSULE.DR PO (06:10)
[2023-12-07] MEDS: Acetaminophen 325 MG TABLET 975 MG PO ×3 (08:34→17:25)
[2023-12-07] MEDS: Apixaban 5 MG TABLET 10 MG PO ×2 (08:34→19:33)
[2023-12-07] MEDS: cefuroxime axetiL 250 MG TABLET 500 MG PO ×2 (08:34→19:32)
[2023-12-07] MEDS: Ferrous Sulfate 324 MG TABLET.DR PO (08:35)
[2023-12-07] MEDS: methADONE HCl 20 MG/2 ML ORAL.CONC 80 MG PO (08:35)
--- NOTE | 2023-12-07 09:16 | PC.NURSE ---
This RN resumed care of patient at 0700, patient was sleeping. This RN was notified by [employer] that patient was refusing her breakfast as it was not what she wanted, stating that she kicked the [employer]ING PL[employer] OPERATOR out and did not want her back in the room. This RN went in to talk with patient and let her vent her feelings. This RN called the kitchen to get another tray ordered, pt medicated with morning medications. Pt refused the nicotine patch stating it makes my heart race .
[2023-12-07] MEDS: Lidocaine 4 % Patch ADH..PATCH 1 PATCH TRANSDERMA (12:47)
--- NOTE | 2023-12-07 12:53 | MHC.CM.ED ---
Patient remains in ER overflow. [facility] has auth. Patient will leave tomorrow 12/07 at 10am/ Santhosh PALACIOS booked. Med [facility] with chart. Patient, Mary Grace WOLFE and Sabrina MISHRA aware. Continue to monitor for d/c needs.
[2023-12-07 14:00] VITALS: PULSE 75; RESP 14; TEMP 36.9; O2SAT 98
--- NOTE | 2023-12-07 17:40 | MHC.EDTECH ---
pt ate 100% dinner
--- NOTE | 2023-12-07 18:24 | MHC.CM.ED ---
Pt is aware that she will discharge tomorrow via BLS to [facility] at 10am. Pt is requesting CM delay transport so her sons could visit. He sons have not yet visited. CM explained that would not be possible, as she is going to [place] and longer transports have to be arranged. She has been here for a week. Again explained that patient will transport at 10am to [place] and that her sons could visit tonight or tomorrow morning.
[2023-12-07] MEDS: Melatonin 3 MG TABLET 9 MG PO (19:33)
[2023-12-07 22:00] VITALS: BP 100/62; PULSE 72; RESP 16; TEMP 37.1; O2SAT 97
--- NOTE | 2023-12-08 05:28 | PC.NURSE ---
no events overnight. safety and comfort maintained, call wray within reach.
[2023-12-08 06:00] VITALS: BP 106/61; PULSE 71; RESP 16; TEMP 37; O2SAT 98
[2023-12-08] MEDS: Omeprazole 20 MG CAPSULE.DR PO (06:26)
--- NOTE | 2023-12-08 08:16 | MHC.EDTECH ---
this tech assumed care of pt at 0700, pt was given breakfast, no signs of apparent distress, awaiting discharge, call wray in place
[2023-12-08] MEDS: Ferrous Sulfate 324 MG TABLET.DR PO (08:35)
[2023-12-08] MEDS: Acetaminophen 325 MG TABLET 975 MG PO (08:35)
[2023-12-08] MEDS: Apixaban 5 MG TABLET 10 MG PO (08:35)
[2023-12-08] MEDS: cefuroxime axetiL 250 MG TABLET 500 MG PO (08:36)
[2023-12-08] MEDS: methADONE HCl 20 MG/2 ML ORAL.CONC 80 MG PO (08:45)
--- NOTE | 2023-12-08 09:21 | PC.NURSE ---
assued care at 0700. pt all of breakfast and had an additinal tray of cuban toast, yogurt, eggs and coffee. AM meds given. Pt waiting to speak to CM. BLS scheduled for 1000.
--- NOTE | 2023-12-08 10:41 | PC.NURSE ---
upon discharge pt refused to go with S crew to [facility]. She planned on her family coming and bringing her stuff to her at 0930 and they did not show up. When she could not see her family before DC to rehab she refused to go. Pt is being discharged from [facility] with concepcion
--- NOTE | 2023-12-08 10:50 | MHC.CM.ED ---
EMS arrived to transport patient to [facility]. Patient declining rehab and wants to be d/c'd the streets. Clothes provided from . [facility] shuttle booked to transport patient to [facility] on [address] at patient's choice. Sosa MISHRA aware. [facility] made aware. Continue to monitor for d/c needs.
[2023-12-08 10:55] VITALS: BP 106/61; PULSE 71; RESP 16; TEMP 37; O2SAT 98
== END 2023-12-08 10:59 ==
PROVIDERS: Physician Assistant; Emergency Provider Student in an Organized Health Care Education/Training Program
DX: I82.401 Acute embolism and thrombosis of unspecified deep veins of right lower extremity (principal); R60.0 Localized edema; M25.551 Pain in right hip; M16.11 Unilateral primary osteoarthritis, right hip; Z59.02 Unsheltered homelessness; F19.10 Other psychoactive substance abuse, uncomplicated; F11.20 Opioid dependence, uncomplicated; Z86.718 Personal history of other venous thrombosis and embolism; Z91.148 Patient's other noncompliance with medication regimen for other reason; Z87.891 Personal history of nicotine dependence
CPT/HCPCS: 36415; 73502; 80053; 80307; 81003; 85025; 97162; 99285